=== PATIENT | male | born 1960 | race Caucasian/White ===

== ENCOUNTER → 2023-12-26 15:43 | Outpatient (REF) | payer OTHER, SELFPAY | LOC: HWRAD 15:43 | PROVIDERS: ATTENDING PHYSICIAN Family Medicine | DX: J18.0 Bronchopneumonia, unspecified organism (principal); J44.9 Chronic obstructive pulmonary disease, unspecified | CPT/HCPCS: 71046 ==

== ENCOUNTER → 2024-01-04 13:29 | Outpatient (REF) | payer OTHER, SELFPAY | LOC: HWRAD 13:29 | PROVIDERS: ATTENDING PHYSICIAN Family Medicine | DX: R59.0 Localized enlarged lymph nodes (principal); R93.89 Abnormal findings on diagnostic imaging of other specified body structures; F17.200 Nicotine dependence, unspecified, uncomplicated | CPT/HCPCS: 71260; Q9967 ==

== ENCOUNTER 2024-04-08 19:55 | Inpatient (IN) | payer MEDICARE, OTHER, SELFPAY ==
[2024-04-08] VITALS (48 sets, daily range): BP systolic 75–143; BP diastolic 40–89; BMI 18.2
--- NOTE | 2024-04-08 13:35 | ED.GENMED ---
History of Present Illness
General
Chief Complaint: Breathing Problem
Source: patient and spouse
Time Seen by Provider: 04/08/24 13:07
History of Present Illness
History of Present Illness:
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
shortness of breath, cough and had faint hemoptysis earlier in the day. Patient is currently undergoing immunotherapy and chemotherapy with last treatment of immunotherapy being on April 04 and chemotherapy sometime in January. Patient had his
care trance from [facility] to the [facility] due to the type of cancer as well as potential treatment options. Spouse reports that they are currently in the process of a workup for another potential treatment with proton
therapy but have yet to have the testing done for this. Patient denies any fevers or current infectious symptoms. Denies any chest pain, palpitations, diaphoresis, lower extremity edema or any other concerns. Denies use of anticoagulants or
diuretics. No known cardiac history.
Past History
Past History
ED Past Medical History: Cancer and HTN
ED Past Surgical History: Other
Social History
Tobacco: Former smoker (Quit 4 months ago)
Alcohol: None
Drug: None
Personal:
Living: with family
Review of Systems
Review of Systems
All Other Systems: ROS reviewed and negative except as documented in HPI and ROS
Phy Exam
Physical Exam
Physical Exam:
GENERAL: Alert , in no apparent distress
HEAD: NCAT
EYE: clear conjunctiva
NECK: Supple
ENT: o/p clr, mmm.
CARDIAC: Irregularly irregular, tachycardic
LUNGS: Somewhat diminished throughout, no acute respiratory distress
ABDOMEN: Soft, without focal tenderness, no r/g, no cvat
NEUROLOGICAL: Alert and oriented
SKIN: Warm and dry, skin intact.
MUSCULOSKELETAL: No edema, well perfused.
PSYCH: Normal and appropriate interaction.
Scores
[id number] Score for Afib Stroke Risk
Age in Years (65=0, 65-74=1, >/=75=2): 65-74
Sex (Female=+1): Male
Congestive Heart Failure History (Yes=+1): No
Hypertension History (Yes=+1): Yes
Stroke/TIA/Thromboembolism History (Yes=+2): No
Vascular Disease History (Yes=+1): No
Diabetes Mellitus (Yes=+1): No
Score: 2
Anticoagulation Recommendations: Recommend anticoagulation (as validated in nonvalvular fib)
Heart Failure Risk
Heart Failure Risk Score: Not Applicable
Heart Score for Chest Pain Patients
STEMI patient?: Not applicable
Withdrawal Assessment of Alcohol
Withdrawal Assessment Completed?: Not applicable
Course
Orders/Labs/Results
Orders:
Orders
04/08/24 13:15
Electrocardiogram (*1) Urgent
Reason for Study: Chest Pain
EKG- Treatment ONCE
04/08/24 13:29
0.9% Sodium Chloride 1000 ml [Nss] 1,000 ml IV BOLUS
Diltiazem HCl [Cardizem] 10 mg IV NOW STA
04/08/24 13:30
CT Chest Pe Study Urgent
Comment:
Reason For Exam: known lung CA. worsening SOB, cough, hemoptysis
04/08/24 13:33
Complete Blood Count/With Diff Urgent
Comprehensive Metabolic Panel Urgent
Magnesium Urgent
NT-proBNP Urgent
PTT Urgent
Prothrombin Time Urgent
Troponin I Urgent
04/08/24 13:45
Diltiazem 125 mg/125 ml Nss [Cardizem] 125 mg in 125 ml IV PER PROTOCOL
Initial dose in mg/hr, then titrate:: 5
Titrate to keep:: Heart rate 80-100 bpm
Titrate by mg/hr:: 5 mg/hr
Frequency of titrations (minutes):: 15
Maximum dose in mg/hr:: 15
Abnormal Lab Results
04/08/24
13:33
RBC 4.04 L 10^6/uL
(4.70-6.10)
Hgb 11.9 L g/dL
(13.0-18.0)
Hct 36.0 L %
(39.0-52.0)
RDW 15.9 H %
(11.5-14.5)
Plt Count 669 H 10^3/uL
(130-400)
Abs Immat Gran (auto) 0.1 H 10^3/uL
(0-0.05)
Absolute Neuts (auto) 7.1 H 10^3/uL
(1.4-6.5)
Absolute Monos (auto) 0.9 H 10^3/uL
(0.1-0.6)
Lymphocytes % 14.3 L %
(20.5-51.1)
Monocytes % 9.9 H %
(1.7-9.3)
APTT 38.9 H Sec
(23.4-35.0)
Glucose 134 H mg/dl
(70-99)
04/08/24 13:33
04/08/24 13:33
Vital Signs
Initial and Last Documented VS:
Initial Vital Signs
Pulse Resp BP Pulse Ox
58 22 79/40 96
04/08/24 12:37 04/08/24 12:37 04/08/24 12:37 04/08/24 12:37
Last Documented Vital Signs
Pulse Resp BP Pulse Ox
114 20 107/57 92
04/08/24 16:30 04/08/24 16:30 04/08/24 16:30 04/08/24 16:30
MDM/Problems Addressed
Differential Diagnosis Includes:
Progression of patient's cancer, pulmonary embolism, pleural effusion, pneumonia, new onset atrial fibrillation
MDM/Problems Addressed:
63-year-old male presenting the emergency department for evaluation of shortness of breath, cough and hemoptysis. Currently undergoing treatment for adenocarcinoma with last immunotherapy treatment 4 days ago. Patient arrives to the ER in atrial
fibrillation with rapid ventricular rate between 148 and up to 165 bpm. There is also mild hypotension. Treating the hypotension with IV fluids and rate control with Cardizem 10 mg IV and a 5 mg drip. Stat CTA of the chest ordered. Anticipate
admission or need for transfer given his history.
Chronic conditions affecting care: Cancer
Acute Exacerbation and/or Progression of Chronic Illness: Cancer
*Radiology
Radiology exam reviewed: radiology read reviewed
*Pulse Oximetry
Patient hypoxic: no
*EKG
Interpreted by ED Provider?: Yes
Heart Rate: 149
Rate: tachycardiac
Rhythm: a-fib
Modale: normal axis
Ischemia: non-specific ST changes
*Drivers' Cash Clerk Interpretation
Rate: tachycardiac
Heart Rate: 155
Rhythm: a-fib
*Critical Care Note
Total Time (30-74mins, 75-104mins- exclusive of procedures): 65
comment:
Critical care statement: A total of 65 minutes of critical care time was provided for this patient. This includes management of unstable vital signs, evaluation of the patient at bedside, reviewing the patient's pertinent medical records, discussion
with consultants, review of old EKGs and review of pertinent medical records. This time with separate from time utilized to perform the aforementioned documented procedures
Patient Management
Discussion with other providers: Hospitalist and Nuclear Station Operator
Escalation/DeEscalation of care consider admission/obs:
Patient's CT scan of the chest shows no evidence for pulmonary embolism however there is significant progression of patient's metastatic disease including the distal trachea, right and left mainstem bronchus, bronchus intermedius and right middle
lobe bronchus. There is secondary mild luminal narrowing. Patient also has increased lymphadenopathy throughout the hilum and mediastinum. I reviewed our imaging with pulmonology here, Dr. Carty, who states that we should discuss the case with
[facility] as if patient would need a stent placed due to the locations of the tumors we would be unable to accommodate this procedure here and would recommend transfer. I spoke to multiple providers at the [facility] and oncology, pulmonary and internal medicine and they agree that patient should be transferred to their facility for further evaluation and treatment. They are also aware of patient's current diagnosis of new onset atrial fibrillation
with rapid ventricular rate. At this time they do not have a bed available and are recommending admission here to our facility until a bed is available. Accepting physician is Dr. Brown as part of the oncology team. Patient's CTA of the
chest was transferred via data source for the pulmonary team to further evaluate. Hospitalist team accepts for continued evaluation and treatment here.
Patient noted to still be slightly hypotensive so is currently only receiving Cardizem infusion at 2-1/2 mg. Deferring further rate control to hospitalist and cardiology as well as potential initiation of heparin.
ED Attending Note
-
Portions of this chart may have been created with voice recognition software.� Occasional wrong word or��sound alike� substitutions may have occurred due to the inherent limitations of voice recognition software.
Discharge Plan
Departure
Patient Disposition: Admit
Date of Disposition: 04/08/24
Time of Disposition: 16:36
Presentation/result/management discussed w/ accepting MD/DO: Hospitalist
Discharge Problem:
Adenocarcinoma of lung, Atrial fibrillation, new onset
Referrals:
Michelet Nguyen MD [Family Provider] -
Interventions
Interventions:
*Risk Screen - Suicide Last Done: 04/08/24 12:37
*General Assessment Last Done: 04/08/24 12:37
*Neglect/Abuse Screening Last Done: 04/08/24 12:37
*ED COVID-19 Vaccine History Last Done: 04/08/24 15:03
ED- Cardiac Assessment Last Done: 04/08/24 14:25
ED- Pulmonary Assessment Last Done: 04/08/24 14:25
Discharge Date and Time
Print Language: SWAZI
[2024-04-08 13:42] LABS: % Basophils 0.4 % (0-2); % Eosinophils 0.2 % (0-6); % Immature Granulocytes 0.5 % (0-0.5); % Lymphocytes 14.3 % (20.5-51.1); % Monocytes 9.9 % (1.7-9.3); % Neutrophils 74.7 % (42.2-75.2); Absolute Immature Granulocytes 0.1 10^3/uL (0-0.05); Absolute Lymphocytes 1.4 10^3/uL (1.2-3.4); Absolute Monocytes 0.9 10^3/uL (0.1-0.6); Absolute Neutrophils 7.1 10^3/uL (1.4-6.5); Hemoglobin 11.9 g/dL (13.0-18.0); Mean Corp Hgb Conc. 33.1 g/dL (33.0-37.0); Mean Corpuscular Hgb 29.5 pg (27.0-31.0); Mean Corpuscular Volume 89.1 fL (80.0-94.0); Mean Platelet Volume 8.9 fL (7.4-10.4); Nucleated Red Blood Cells % 0 % (-); Platelet Count 669 10^3/uL (130-400); Red Blood Cell Count 4.04 10^6/uL (4.70-6.10); Red Cell Dist. Width 15.9 % (11.5-14.5); White Blood Cell Count 9.5 10^3/uL (4.8-10.8)
[2024-04-08] MEDS: NSS 1000 IV ×2 (13:44→19:35)
[2024-04-08 13:48] LABS: INR 1.04; PT 13.9 Sec (11.4-14.6)
[2024-04-08 13:49] LABS: APTT 38.9 Sec (23.4-35.0)
[2024-04-08] MEDS: CARDIZEM 10 MG IV (13:54)
[2024-04-08 13:55] LABS: ALT (SGPT) 17 U/L (0-50); AST (SGOT) 21 U/L (17-59); Albumin 3.5 g/dl (3.5-5.0); Alkaline Phosphatase 100 U/L (38-126); Blood Urea Nitrogen 13 mg/dl (9-20); Calcium 9.9 mg/dl (8.4-10.2); Carbon Dioxide 27 mmol/L (22-30); Chloride 99 mmol/L (98-107); Glucose 134 mg/dl (70-99); Magnesium 2.1 mg/dl (1.6-2.3); Sodium 135 mmol/L (135-145); Total Bilirubin 0.4 mg/dl (0.2-1.3); Total Protein 6.7 g/dl (6.3-8.2); eGFR > 60.00
[2024-04-08 14:07] LABS: NT-proBNP 1920 pg/ml; Troponin I 0.012 ng/ml
[2024-04-08] MEDS: CARDIZEM 125 IV (14:38)
--- NOTE | 2024-04-08 15:35 | EDRN ---
Pt had his BP alarm off for SBP 74. Pt is on cardizem for A Fib w/ RVR at 5mg at that time. BP retaken and SBP 89. Micah SIMMONS in another room so this RN spoke to Dr. Cole who said to reduce cardizem to 2.5 mg which was done at 15:33.
--- NOTE | 2024-04-08 17:34 | HPS.HSE ---
Family Physician
-
Family Physician: Michelet Nguyen
Chief Complaint
-
Shortness of breath and weakness
History of Present Illness
Patient is a 63-year-old male with past medical history significant for stage IV adenocarcinoma of lung with metastases to chest, abdomen and pelvis and hypertension who presented to [facility] ED for evaluation of increased lethargy, shortness of
breath and weakness. Patient reports that over the past several days he has felt increasingly weak with some dizziness associated with increased shortness of breath and increased cough. This morning he felt like he ma pass out so patient came for
evaluation. Upon arrival in ED he was found to be in a-fib RVR and now on cardizem gtt. Patient denies any recent fevers, chills, chest pain, nausea, vomiting, contisipation, diarrhea or urinary symptoms. Patient is followed by [facility], is
accepted at [facility] and awaiting a bed.
Medical History
Past Medical History
Past Medical History: Reports Other
Additional Past Medical History:
stage IV adenocarcinoma of lung with metastases to chest, abdomen and pelvis
hypertension
Past Surgical History: Reports None
Social History
Tobacco: Former Smoker (quit 01/22/2024, 50 pack year history )
Alcohol: Former (last drink 07/20/2016)
Drug: None
Personal:
Living: With Family
Employment: Disabled
Family History
Family History: Not pertinent
Allergies / Home Medications
Allergies reflects when Allergies were last updated in [facility].
Home Medications with original date entered in [facility]
Allergy/Medication List:
Allergies
Allergy/AdvReac Type Severity Reaction Status Date / Time
No Known Allergies Allergy Verified 04/08/24 12:37
Home Medications
acetaminophen 500 mg tablet (Tylenol Extra Strength) 500 mg PO Q6HPRN PRN mild pain 04/08/24
baclofen 10 mg tablet 10 mg PO TIDPRN PRN hiccups 04/08/24
budesonide 0.25 mg/2 mL suspension for nebulization 0.25 mg inhalation R TIDPRN PRN sob 04/08/24
codeine 10 mg-guaifenesin 100 mg/5 mL oral liquid 5 ml PO Q4HPRN PRN cough 04/08/24
diphenhydramine 25 mg-acetaminophen 500 mg tablet (Acetaminophen PM) 1 tab PO HSPRN PRN sleep 04/08/24
docusate sodium 100 mg capsule (Colace) 100 mg PO BIDPRN PRN sob 04/08/24
famotidine 20 mg tablet (Pepcid) 20 mg PO DAILY 04/08/24
levalbuterol HCl 1.25 mg/3 mL solution for nebulization 1.25 mg inhalation R Q6HPRN PRN sob 04/08/24
prednisone 5 mg tablet 5 mg PO DAILY 04/08/24
prochlorperazine maleate 10 mg tablet (Compazine) 10 mg PO BIDPRN PRN nausea 04/08/24
Review of Systems
-
History Source: Patient
Constitutional: Reports Fatigue
EENT: Reports No Symptoms
Respiratory: Reports Cough and Other (shortness of breath)
Cardiac: Reports Other (near syncope)
Abdomen/GI: Reports No Symptoms
: Reports No Symptoms
Musculoskeletal: Reports No Symptoms
Skin: Reports No Symptoms
Neurological: Reports Dizzy and Weakness
Endocrine: Reports No Symptoms
Hematologic/Lymphatic: Reports No Symptoms
Psych: Reports No Symptoms
Physical Exam
Vital Signs
Vital Signs
Pulse Resp BP Pulse Ox
114 20 107/57 92
04/08/24 16:30 04/08/24 16:30 04/08/24 16:30 04/08/24 16:30
Physical Exam
General: Well Developed, Well Nourished, No Apparent Distress, Comfortable and Conversant
HEENT: NormoCephalic, Moist mucous membranes, Atraumatic, PERRLA, [place] Conjunctivae, Nose Appears Normal and Ears Appear Normal
Respiratory: Clear and Decreased Breath Sounds
Cardiac: S1/S2 and Irregular Rhythm; No Murmur, Rub or Gallop
GI: Soft, Non Tender, Non Distended and Normal Bowel Sounds; No Organomegaly
Rectal: Deferred by Provider
Genito-urinary: Deferred by me
Musculoskeletal: No Clubbing, No Cyanosis and No Edema
Skin: Warm and IV/Catheter Site; No Rash
Neuro: Awake, Alert, AO x 3, Nonfocal/grossly intact and Cranial Nerves Intact
Hematologic/Lymphatic: No Lymphadenopathy
Psych: Calm and Intact Judgment/Insight
Laboratory Results
-
04/08/24 13:33
04/08/24 13:33
Laboratory Results
PT 13.9 Sec (11.4-14.6) 04/08/24 13:33
INR 1.04 04/08/24 13:33
APTT 38.9 Sec (23.4-35.0) H 04/08/24 13:33
Total Bilirubin 0.4 mg/dl (0.2-1.3) 04/08/24 13:33
AST 21 U/L (17-59) 04/08/24 13:33
ALT 17 U/L (0-50) 04/08/24 13:33
Alkaline Phosphatase 100 U/L (38-126) 04/08/24 13:33
Troponin I 0.012 ng/ml 04/08/24 13:33
Data Reviewed
-
CT Scan: Report Reviewed by me (Chest: No evidence of pulmonary embolism. Progressive disease, as described.)
Medical Tests (Nuc Med, Echo, EKG etc): Report Reviewed by me (EKG: ATRIAL FIBRILLATION WITH RAPID VENTRICULAR RESPONSE)
Lab Data: Labs Reviewed by me
Impression/Plan
-
IMPRESSION/PLAN:
#A-fib RVR
EKG: ATRIAL FIBRILLATION WITH RAPID VENTRICULAR RESPONSE
NONSPECIFIC ST ABNORMALITY
- Admit to telemetry
- stop Cardizem gtt
- start Cardizem PO 30mg q6
- consult Cardiology
- Echo
#stage IV adenocarcinoma of lung with metastases to chest, abdomen and pelvis
Currently undergoing immunotherapy and chemotherapy with last treatment of immunotherapy being on April 04 and chemotherapy sometime in January. Patient had his care transferred from [facility] to the [facility] due to the
type of cancer as well as potential treatment options. Spouse reports that they are currently in the process of a workup for another potential treatment with proton therapy but have yet to have the testing done for this.
Chest CT: No evidence of pulmonary embolism.
Progressive disease, as described. (see report)
- continue budesonide, codeine-guaifenesin, Xopenex, prednisone and PRN Compazine
- accepted at [facility], awaiting transfer
#hypertension
controlled
#GERD
- continue famotidine
Code Status: DNR
DVT Prophylaxis: Lovenox Sq
--- NOTE | 2024-04-08 18:58 | W.PN.UPDATE ---
Update Note
Progress Note Update
Assessment and Plan -
63-year-old male with past medical history of metastatic lung cancer who presents to the emergency department with lightheadedness, blurry vision, palpitations and shortness of breath found to be in rapid atrial fibrillation diagnosed with new onset
atrial fibrillation. No prior history of CHF, CAD, hypertension or diabetes. Patient on Cardizem drip in the emergency department at 2.5 and currently normal sinus rhythm. Oxygen saturation is 94% on room air. Initially soft BPs but now
hemodynamically more stable with a blood pressure of around 110 systolic.
AFIB RVR - now rate controlled
- admit to telemetry
- start oral diltiazem 30mg q 6 hours with hold parametes
- [id number] = 1, hold of AC, obtain echo, if depressed EF can start AC. For now aspirin 325
- cardiology consult
Metastatic Lung Ca -
- transfer to [facility] and awaiting bed
- continue respiratory treatments and cough suppression
-
DVT PPX - Lovenox Sq
Code Status - DNR
[2024-04-08] MEDS: CARDIZEM 30 MG PO (19:36)
[2024-04-09] VITALS (19 sets, daily range): BP systolic 96–130; BP diastolic 45–85; BMI 17.2
[2024-04-09] MEDS: TYLENOL 650 MG PO ×4 (00:09→22:06)
[2024-04-09] MEDS: ROBITUSSIN AC 5 ML PO ×3 (00:09→22:08)
[2024-04-09] MEDS: CARDIZEM 30 MG PO ×2 (03:38→10:40)
[2024-04-09] MEDS: CARDIZEM PO (03:38)
--- NOTE | 2024-04-09 04:14 | PTCARENOTE ---
Pt rec'd from ED at approx 0300 awake,alert in sinus rhythm. Dyspnea with minimal exertion and harsh mostly non productive cough. Afib education pamphlet given. adm hx taken and recorded. call [facility] within reach.
--- NOTE | 2024-04-09 04:43 | PTCARENOTE ---
Rec'd call from [place] transfer [facility]. medical Update given. transfer stated that pt's insurance would have to be cleared before scheduling ambulance.
[2024-04-09 06:03] LABS: Hematocrit 33.1 % (39.0-52.0); Hemoglobin 10.6 g/dL (13.0-18.0); Mean Corpuscular Hgb 29.9 pg (27.0-31.0); Mean Corpuscular Volume 93.5 fL (80.0-94.0); Mean Platelet Volume 9.3 fL (7.4-10.4); Platelet Count 581 10^3/uL (130-400); Red Blood Cell Count 3.54 10^6/uL (4.70-6.10); Red Cell Dist. Width 16.1 % (11.5-14.5); White Blood Cell Count 8.4 10^3/uL (4.8-10.8)
[2024-04-09 06:05] LABS: Blood Urea Nitrogen 12 mg/dl (9-20); Calcium 9.6 mg/dl (8.4-10.2); Carbon Dioxide 25 mmol/L (22-30); Chloride 102 mmol/L (98-107); Estimated Creatinine Clearance 100 ml/min; Glucose 110 mg/dl (70-99); Potassium 5.1 mmol/L (3.5-5.1); Sodium 135 mmol/L (135-145); eGFR > 60.00
[2024-04-09 06:32] LABS: TSH 1.54 uIU/ml (0.47-4.68)
--- NOTE | 2024-04-09 08:00 | PTCARENOTE ---
Assumed care of pt from prev nsg shift; Pt AAOx3 w/flat affect. Pt w/no c/o CP or SOB. Pt does c/o 6/10 upper back & upper abd from coughing. PRN PO Tylenol administered as ordered. Pt's VS stable w/HR in the 70's & BP 114/74 this AM. Pt remains SR
on telemetry monitoring this AM. Pt w/call [facility] within reach & no addtl needs at this time. Plan of care ongoing.
[2024-04-09] MEDS: PEPCID 20 MG PO (08:41)
[2024-04-09] MEDS: DELTASONE 5 MG PO (08:41)
--- NOTE | 2024-04-09 08:56 | CM ---
Addendum entered by Reina Isaac 04/09/24 10:22:
Telephone call to [facility] transfer center to check on status. His insurance has been cleared and just awaiting an available bed.
Original Note:
Reviewed chart. Met with Mr. Peck to review discharge plans. He states prior to admission he resides with his significant other in a second floor condo. He spouse and son reside in a house down the street. He states prior to admission he was
independent with ambulation and adls. He states he does not have any DME in the home. He states he has a prescription plan ans uses [facility] pharmacy. He states he maybe going to [facility] for further care. Medical work-up in progress. The discharge plan
is to return home with his significant other when medically stable.
--- NOTE | 2024-04-09 14:25 | CON.CAR ---
Addendum entered and electronically signed by Gray Tamayo MD 04/09/24 17:11:
I saw and examined the patient.
The BROOM BUILDER's note was reviewed and I agree with the note.
Comment:
63-year-old man with stage IV adenocarcinoma of the lung who presents with shortness of breath found to be in atrial fibrillation with RVR. He is now in sinus rhythm after being given IV diltiazem which was then converted to p.o. He is currently
getting diltiazem 30 mg every 6 hours. We will convert this to 120 mg long-acting diltiazem. In terms of anticoagulation, his [id number] score is 1 for age however this does not take into account the hypercoagulable state associated with
malignancy. I will get in touch with his oncologist at [facility] (Bryon Bojorquez MD) to discuss the risk/benefit of anticoagulation. Discussed this plan with patient and his and they are agreeable.
Original Note:
Consultation
Consultation Request
Date/Time Consultation Requested: 04/09/2024 14:20
Date/Time Consultation Performed: 04/09/2024 14:25
Requesting Provider: Dr. García
Performing Provider: ALBERTINA Guzman for Dr. Tamayo
Reason for Consultation: Atrial fibrillation with RVR
Medical History
-
Chief Complaint: Shortness of breath
History of Present Illness:
Erick Peck is a 63-year-old male with stage IV adenocarcinoma of the lung, COPD, and former smoker (quit less than 6 months ago), who presented to the emergency room with a chief complaint of shortness of breath. He also had worsening
hemoptysis. He has completed immunotherapy and chemotherapy. Initially he was treated at [facility] but has transferred his care to the emergency [place]. He was found to be in atrial fibrillation with rapid ventricular response in the
emergency department. Cardiology has been consulted for atrial fibrillation management.
His , Leila, was present for this consultation.
Past Medical History
Past Medical History: Cancer (Stage IV adenocarcinoma of the lung [with metastasis]) and COPD
Past Surgical History: Other (Splenectomy)
Social History
Tobacco: Former Smoker (Quit 4 months ago)
Alcohol: None
Personal:
Living: With Family
Employment: Retired
Family History
Family History: Reviewed & Not Pertinent
Allergies / Home Medications
Allergy/AdvReac Type Severity Reaction Status Date / Time
No Known Allergies Allergy Verified 04/08/24 12:37
�Medication �Instructions �Recorded �Confirmed �Type
acetaminophen 500 mg tablet 500 mg PO Q6HPRN PRN mild pain 04/08/24 04/08/24 History
(Tylenol Extra Strength)
baclofen 10 mg tablet 10 mg PO TIDPRN PRN hiccups 04/08/24 04/08/24 History
budesonide 0.25 mg/2 mL suspension 0.25 mg inhalation R TIDPRN PRN sob 04/08/24 04/08/24 History
for nebulization
codeine 10 mg-guaifenesin 100 mg/5 5 ml PO Q4HPRN PRN cough 04/08/24 04/08/24 History
mL oral liquid
diphenhydramine 25 1 tab PO HSPRN PRN sleep 04/08/24 04/08/24 History
mg-acetaminophen 500 mg tablet
(Acetaminophen PM)
docusate sodium 100 mg capsule 100 mg PO BIDPRN PRN sob 04/08/24 04/08/24 History
(Colace)
famotidine 20 mg tablet (Pepcid) 20 mg PO DAILY Gastrointestinal 04/08/24 04/08/24 History
Issue
levalbuterol HCl 1.25 mg/3 mL 1.25 mg inhalation R Q6HPRN PRN sob 04/08/24 04/08/24 History
solution for nebulization
prednisone 5 mg tablet 5 mg PO DAILY Anti-Inflammatory 04/08/24 04/08/24 History
prochlorperazine maleate 10 mg 10 mg PO BIDPRN PRN nausea 04/08/24 04/08/24 History
tablet (Compazine)
Review of Systems
-
History Source: Patient
All other systems: Negative unless noted
Constitutional: Weight Loss and Fatigue
EENT: Sore Throat
Respiratory: Cough and Trouble Breathing
Cardiac: No Symptoms
Abdomen/GI: No Symptoms
: No Symptoms
Musculoskeletal: No Symptoms
Skin: No Symptoms
Neurological: No Symptoms
Endocrine: No Symptoms
Hematologic/Lymphatic: No Symptoms
Physical Exam
Vital Signs
Temp Pulse Resp BP Pulse Ox
97.7 F 71 16 105/48 94
04/09/24 11:25 04/09/24 10:40 04/09/24 11:25 04/09/24 10:40 04/09/24 11:25
Lab Results
04/09/24 05:25
04/09/24 05:25
Troponin I 0.012 ng/ml 04/08/24 13:33
[id number] Pept 1920 pg/ml 04/08/24 13:33
Physical Exam
General: Well Developed and No Apparent Distress
HEENT: Normocephalic, Anicteric and Moist Mucous Membranes
Respiratory: Crackles and Accessory Resp Muscle Use
Cardiac: S1/S2 and Regular Rhythm
Breast: Deferred by me
GI: Soft, Non Tender, Non Distended and Normal Bowel Sounds
Rectal: Deferred by Provider
Genito-urinary: No Costovertebral Tender
Musculoskeletal: No Clubbing, No Cyanosis and No Edema
Skin: Warm and Dry
Neuro: AO x 3
Hematologic/Lymphatic: No Lymphadenopathy
Psych: Calm
Impression / Plan
-
IMPRESSION/PLAN: 63M with metastatic lung cancer managed at [facility] presented with shortness of breath. He was found to be in atrial fibrillation with RVR in the ER.
Shortness of breath
-No PE on CT
-proBNP 1919
-TTE pending
Atrial fibrillation with RVR - new
-Back in sinus, diltiazem gtt transitioned to diltiazem 30mg Q6H, move to diltiazem 120mg daily
-Oral Anticoagulation: None prior to arrival
-[id number]: score at least 1 (age 65-74), but this does not include his oncologic process
Metastatic lung cancer
-Last immunotherapy 04/04/2024 (agent unknown) & chemotherapy 01/2024
-Managed by [facility] (Dr. Bojorquez), transfer planned
Cough, pulmonary following
Volume depletion, per primary service
Coronary artery calcification, present on CT
Former smoker, quit 4 months ago, continued cessation recommended
Data Reviewed
-
EKG: Report Reviewed by me (Atrial fibrillation with RVR, non specific ST abnormality, rate 149)
Labs: Labs Reviewed by me
--- NOTE | 2024-04-09 14:38 | W.PN.HOSP.TC ---
Today's Communication/Plan
-
Oncology consult
Pulmonary consult
Await transfer
IV fluids
Assessment / Plan
Assessment / Plan
Gen-AAOx3, NAD
HEENT-NC, AT, anicteric, clear oral mm
Neck-supple
CV-reg, no M, +S1/S2
Lungs-clear B/L
Abd-soft, NT, ND
Ext-no edema
Musculoskeletal-no cyanosis, clubbing
Skin-warm and dry
Neuro-grossly non-focal
Psych-calm, cooperative
Volume depletion -continue normal saline IV. Etiology is due to malignancy induced anorexia.
Rapid atrial fibrillation -spontaneously converted to sinus rhythm last night. Rate controlled on Cardizem p.o. Consult cardiology.
Metastatic lung cancer -diagnosed in December, has plans to follow-up with oncology [facility]. Discussed with . Has yet to begin treatment. CT scan of chest unfortunately shows progression.
Normocytic anemia -unknown acuity. Likely due to malignancy.
DNR
Dispo -await transfer to [facility]. Alternatively, if he clinically improves can discharge tomorrow and he can follow-up with oncology in the office on Tuesday as he has an appointment according to family.
Updated family at the bedside.
Anticipated Discharge: Within 24 hours
Subjective/Interval History
-
Date of Service: April 09, 2024
Patient seen and examined. Complaining of weakness, dysphagia, dehydration.
Objective Data
-
Labs:
Laboratory Results
04/09/24
05:25
WBC 8.4
Hgb 10.6 L
Hct 33.1 L
Plt Count 581 H
Sodium 135
Potassium 5.1
Chloride 102
Carbon Dioxide 25
BUN 12
Creatinine 0.6 L
Glucose 110 H
Calcium 9.6
Vital Signs:
Vital Signs
Temp Pulse Resp BP Pulse Ox
97.7 F 71 16 105/48 94
04/09/24 11:25 04/09/24 10:40 04/09/24 11:25 04/09/24 10:40 04/09/24 11:25
I&O
04/08/24 04/09/24 04/10/24
06:59 06:59 06:59
Intake Total 480 / 480
Output Total 400 / 400
Balance 80 / 80
Review of Systems
-
History Source: Patient
All other systems: Reviewed and negative
--- NOTE | 2024-04-09 15:20 | CON.PUL ---
Consultation
Consultation Request
Date/Time Consultation Requested: 04/09/24
Date/Time Consultation Performed: 04/09/24
Performing Provider: Jenn
Reason for Consultation: COPD, cough
Medical History
-
History of Present Illness:
Patient is a 63-year-old male with previous history of recently diagnosed metastatic lung cancer (adenocarcinoma) at [facility], former smoker, chronic cough complaints presenting to for increased lethargy, shortness of breath and
generalized weakness. His notes that over the past several days he has had increasing weakness, dizziness with shortness of breath and coughing. He has an appointment to see radiation oncology at [facility] this week. Following his diagnosis at
[facility], he was never evaluated by pulmonary as an outpatient. He is a former smoker of 50 pack years. In the ER he was noted to have A-fib with RVR, placed on Cardizem drip.
He has complaints of cough, was tried on dry powder inhalers as an outpatient but did not tolerate.
No prior PFTs for review.
Past Medical History
Past Medical History: Other (see list below)
Social History
Tobacco: Former Smoker
Alcohol: Former
Drug: None
Family History
Family History: Reviewed & Not Pertinent
Allergies / Home Medications
Allergies
Allergy/AdvReac Type Severity Reaction Status Date / Time
No Known Allergies Allergy Verified 04/08/24 12:37
Home Medications
�Medication �Instructions �Recorded �Confirmed �Last Taken �Type
acetaminophen 500 mg tablet 500 mg PO Q6HPRN PRN mild pain 04/08/24 04/08/24 Unknown History
(Tylenol Extra Strength)
baclofen 10 mg tablet 10 mg PO TIDPRN PRN hiccups 04/08/24 04/08/24 Unknown History
budesonide 0.25 mg/2 mL suspension 0.25 mg inhalation R TIDPRN PRN sob 04/08/24 04/08/24 04/07/24 History
for nebulization
codeine 10 mg-guaifenesin 100 mg/5 5 ml PO Q4HPRN PRN cough 04/08/24 04/08/24 04/08/24 History
mL oral liquid
diphenhydramine 25 1 tab PO HSPRN PRN sleep 04/08/24 04/08/24 04/07/24 History
mg-acetaminophen 500 mg tablet
(Acetaminophen PM)
docusate sodium 100 mg capsule 100 mg PO BIDPRN PRN sob 04/08/24 04/08/24 04/04/24 History
(Colace)
famotidine 20 mg tablet (Pepcid) 20 mg PO DAILY Gastrointestinal 04/08/24 04/08/24 04/07/24 History
Issue
levalbuterol HCl 1.25 mg/3 mL 1.25 mg inhalation R Q6HPRN PRN sob 04/08/24 04/08/24 Unknown History
solution for nebulization
prednisone 5 mg tablet 5 mg PO DAILY Anti-Inflammatory 04/08/24 04/08/24 04/07/24 History
prochlorperazine maleate 10 mg 10 mg PO BIDPRN PRN nausea 04/08/24 04/08/24 Unknown History
tablet (Compazine)
Review of Systems
-
History Source: Patient
All other systems: Negative unless noted
Vitals / Labs / Diagnostic Testing
Vital Signs
Temp Pulse Resp BP Pulse Ox
97.7 F 71 16 105/48 94
04/09/24 11:25 04/09/24 10:40 04/09/24 11:25 04/09/24 10:40 04/09/24 11:25
Lab Data
04/09/24 05:25
04/09/24 05:25
Diagnostic Testing:
Physical Exam
-
HEENT: Normocephalic, Anicteric and Moist Mucous Membranes
Cardiovascular: S1/S2 and Regular Rhythm
Respiratory: Clear and Non-Labored Respirations
GI: Soft, Non Distended and Non Tender
Neurology: Awake, Alert, Oriented and No Motor Deficits
Skin: Warm, Dry and Good Color
General: Comfortable and Other (NAD, thin appearing)
Assessment
-
Patient is a 63-year-old male with previous history of recently diagnosed metastatic lung cancer (adenocarcinoma) at [facility], former smoker, chronic cough complaints presenting to for increased lethargy, shortness of breath and
generalized weakness. His notes that over the past several days he has had increasing weakness, dizziness with shortness of breath and coughing. He has an appointment to see radiation oncology at [facility] this week. Following his diagnosis at
[facility], he was never evaluated by pulmonary as an outpatient. He is a former smoker of 50 pack years. In the ER he was noted to have A-fib with RVR, placed on Cardizem drip.
Chronic cough
Suspect COPD
A-fib with RVR
Generalized weakness
Weight loss
Anemia, Hb 10- unknown if acute/chronic
Thrombocytosis
Conditions present prior to admission
Stage IV adenocarcinoma of lung with metastases to chest, abdomen and pelvis
Hypertension
Former smoker, 50 pack years, quit 01/22/2024
Former ETOH abuse (last drink 07/20/2016)
GERD
Post-splenectomy
Recurrent right inguinal hernia
Mixed hyperlipidemia
Plan
No oxygen was needed on admission, currently saturating >90% on RA
Home O2 evaluation likely pending evals
Prior history of lung disease is noted including suspected COPD but never had PFTs
Emphysema is noted on CT as well
We will obtain bedside PFT to evaluate
Will need outpatient FU --discussed with and patient
Chronic cough complaints, could be due to COPD
Did not do well with DPI, can change to HFA with spacer
Likely due to progressive endoluminal obstruction from tumor as well--this is noted throughout proximal to distal airways on the RIGHT
Advanced lung disease noted, will be seeing Rad Onc
They understand his treatment is palliative at this point
CXR/CT imaging reviewed with progression
New Afib with RVR, cards eval obtained
proBNP slightly elevated
ECHO results are reviewed indicating small effusion w/o tamponade, stable EF
Rate control
Smoking history noted, quit recently as of December
Continued smoking cessation encouraged
Weight loss noted, optimize nutrition
Will need outpatient pulmonary evaluation in our office for PFTs and 6MWT
Reviewed with patient and
We will follow
Diagnostic Data
Chest X-Ray: 12/26/23- Bilateral hilar prominence representing either engorgement of the central pulmonary vasculature or hilar adenopathy. Short-term follow-up chest radiograph could be obtained to ensure resolution in 4 weeks. Alternatively,
dedicated CT chest could be performed. Trace pleural effusions.
CT Scan: CHEST 04/08/24- Hilum and mediastinum: Progressive metastatic hilar and mediastinal adenopathy. Confluent mediastinal adenopathy has enlarged, with maximum AP dimension 6.2 cm, centered in the precarinal and subcarinal region. Previous
corresponding measurement approximately 5.2 cm. Progressive bilateral hilar adenopathy measuring up to 3.7 cm on the right and 2.8 cm on the left. Progressive superior and anterior mediastinal adenopathy. Progressive bilateral supraclavicular
adenopathy.
Progressive endobronchial soft tissue attenuation suggesting progressive endobronchial spread of tumor within the distal trachea, as well as within the right and left mainstem bronchus. Secondary mild luminal narrowing. Progressive endoluminal soft
tissue attenuation consistent with progressive endobronchial spread of tumor occludes the bronchus intermedius and right middle lobe bronchus.
There is progressive atelectasis involving the lateral segment of the right middle lobe, as well as in the posterior medial right costophrenic angle. Anterior inferior right upper lobe progressive reticular interstitial thickening. As before, there
is advanced emphysematous lung disease. There is a stable tiny nodule in the anterior medial caudal aspect of the right upper lobe (image 218 series 404) without significant change. There is also a small nodular opacity in the posterolateral right
lower lobe, without significant change (image 218 series 404).
There is a small to moderate pericardial effusion which has increased in size. There is a small right pleural effusion which has increased slightly in size. No pneumothorax.
01/04/24 CHEST -1. Diffuse pathologic lymphadenopathy, including within the mediastinum and both hilar regions, as detailed above.
2. Pathologic lymphadenopathy within the left upper quadrant.
3. Leading considerations are lymphoma or metastatic lymphadenopathy.
4. Heterogeneous right adrenal mass, measuring 2.4 cm in diameter, also likely malignant.
5. Minimal coronary arterial calcification. Please correlate with symptoms of and risk factors for coronary artery disease, with further workup as clinically appropriate.
Echo: 04/09/24- Normal biventricular size and systolic function without regional wall motion abnormality. LVEF 65%. No significant valvular disease. Small pericardial effusion without evidence of tamponade. No prior study available for comparison.
PFT's:
Reports and relevant images were personally reviewed.
Total time spent on this consultation __76__ minutes which includes review of history, physical exam, medications, laboratory data, personal review of imaging, extensive review of outpatient records, discussion with care team and respiratory therapy.
[2024-04-09] MEDS: FLUSH (NSS) 1 FLUSH IV (15:32)
[2024-04-09] MEDS: NSS 1000 IV (15:32)
--- NOTE | 2024-04-09 16:03 | PTCARENOTE ---
Update given to Tricia at [facility] [place]. Still awaiting an available bed at [facility] for pt transfer.
[2024-04-09] MEDS: XOPENEX 1.25 MG INHALANT SOLUTION INH (16:39)
[2024-04-09] MEDS: CARDIZEM CD 120 MG PO (17:35)
--- NOTE | 2024-04-09 21:55 | PTCARENOTE ---
Rec'd call; No bed available as of this time at [facility] as per transfer center.
Pt resting in bed, continues to have harsh cough,sometimes productive. Plan of care discussed with pt including medications. Pt remains sinus on telemetry. IVF continued via LAC, site patent.
[2024-04-10] VITALS (11 sets, daily range): BP systolic 82–122; BP diastolic 50–73; PULSE 78–86
--- NOTE | 2024-04-10 00:42 | PTCARENOTE ---
Pt with harsh cough occ with some blood noted on tissues. sat remains 93% or better.
[2024-04-10] MEDS: NSS 1000 IV (03:00)
[2024-04-10] MEDS: ROBITUSSIN AC 5 ML PO ×3 (05:06→16:10)
[2024-04-10] MEDS: TYLENOL 650 MG PO ×2 (05:08→16:09)
[2024-04-10 05:28] LABS: Hematocrit 33.2 % (39.0-52.0); Hemoglobin 10.8 g/dL (13.0-18.0); Mean Corp Hgb Conc. 32.5 g/dL (33.0-37.0); Mean Corpuscular Hgb 29.8 pg (27.0-31.0); Mean Corpuscular Volume 91.7 fL (80.0-94.0); Mean Platelet Volume 9.2 fL (7.4-10.4); Platelet Count 598 10^3/uL (130-400); Red Blood Cell Count 3.62 10^6/uL (4.70-6.10); Red Cell Dist. Width 15.9 % (11.5-14.5); White Blood Cell Count 10.5 10^3/uL (4.8-10.8)
[2024-04-10 05:53] LABS: Blood Urea Nitrogen 9 mg/dl (9-20); Calcium 9.7 mg/dl (8.4-10.2); Carbon Dioxide 25 mmol/L (22-30); Chloride 99 mmol/L (98-107); Estimated Creatinine Clearance 100 ml/min; Glucose 100 mg/dl (70-99); Potassium 4.9 mmol/L (3.5-5.1); Sodium 134 mmol/L (135-145); eGFR > 60.00
[2024-04-10] MEDS: CARDIZEM CD 120 MG PO (08:03)
[2024-04-10] MEDS: DELTASONE 5 MG PO (08:03)
[2024-04-10] MEDS: PEPCID 20 MG PO (08:03)
--- NOTE | 2024-04-10 08:55 | W.PN.PUL3 ---
Today's Communication / Plan
-
PFT with moderate obstruction, COPD education/start inhalers to go home on
Kathy sanchez for cough, which will also be chronic and persistent due to endoluminal tumor burden
Encouraged OOB/PT/OT
OP FU can be arranged, but he may need to see [facility] to discuss advanced lung therapies including stent
Transfer arrangements to [facility], discharge planning per team
Assessment
-
Patient is a 63-year-old male with previous history of recently diagnosed metastatic lung cancer (adenocarcinoma) at [facility], former smoker, chronic cough complaints presenting to for increased lethargy, shortness of breath and
generalized weakness. His notes that over the past several days he has had increasing weakness, dizziness with shortness of breath and coughing. He has an appointment to see radiation oncology at [facility] this week. Following his diagnosis at
[facility], he was never evaluated by pulmonary as an outpatient. He is a former smoker of 50 pack years. In the ER he was noted to have A-fib with RVR, placed on Cardizem drip.
Chronic cough
Suspect COPD
A-fib with RVR
Generalized weakness
Weight loss
Anemia, Hb 10- unknown if acute/chronic
Thrombocytosis
Conditions present prior to admission
Stage IV adenocarcinoma of lung with metastases to chest, abdomen and pelvis
Hypertension
Former smoker, 50 pack years, quit 01/22/2024
Former ETOH abuse (last drink 07/20/2016)
GERD
Post-splenectomy
Recurrent right inguinal hernia
Mixed hyperlipidemia
Plan
No oxygen was needed on admission, currently saturating >90% on RA
Home O2 evaluation likely pending evals
Prior history of lung disease is noted including suspected COPD but never had PFTs
Emphysema is noted on CT as well
We will obtain bedside PFT to evaluate--moderate COPD noted-reviewed with patient
Will need outpatient FU --discussed with and patient
Will start inhalers, COPD education
Odalysslocarolina sanchez for coughing
Chronic cough complaints, could be due to COPD
Did not do well with DPI, can change to HFA with spacer
Likely due to progressive endoluminal obstruction from tumor as well--this is noted throughout proximal to distal airways on the RIGHT
We did discuss his expectations for cough given his tumor burden
Advanced lung disease noted, will be seeing Rad Onc
They understand his treatment is palliative at this point
CXR/CT imaging reviewed with progression
New Afib with RVR, cards eval obtained
proBNP slightly elevated
ECHO results are reviewed indicating small effusion w/o tamponade, stable EF
Rate control
Smoking history noted, quit recently as of December
Continued smoking cessation encouraged
Weight loss noted, optimize nutrition
Will need outpatient pulmonary evaluation in our office for PFTs and 6MWT
Reviewed with patient and
If he decides to see [facility] that would be suggested for advanced lung therapy evaluation
Diagnostic Data
Chest X-Ray: 12/26/23- Bilateral hilar prominence representing either engorgement of the central pulmonary vasculature or hilar adenopathy. Short-term follow-up chest radiograph could be obtained to ensure resolution in 4 weeks. Alternatively,
dedicated CT chest could be performed. Trace pleural effusions.
CT Scan: CHEST 04/08/24- Hilum and mediastinum: Progressive metastatic hilar and mediastinal adenopathy. Confluent mediastinal adenopathy has enlarged, with maximum AP dimension 6.2 cm, centered in the precarinal and subcarinal region. Previous
corresponding measurement approximately 5.2 cm. Progressive bilateral hilar adenopathy measuring up to 3.7 cm on the right and 2.8 cm on the left. Progressive superior and anterior mediastinal adenopathy. Progressive bilateral supraclavicular
adenopathy.
Progressive endobronchial soft tissue attenuation suggesting progressive endobronchial spread of tumor within the distal trachea, as well as within the right and left mainstem bronchus. Secondary mild luminal narrowing. Progressive endoluminal soft
tissue attenuation consistent with progressive endobronchial spread of tumor occludes the bronchus intermedius and right middle lobe bronchus.
There is progressive atelectasis involving the lateral segment of the right middle lobe, as well as in the posterior medial right costophrenic angle. Anterior inferior right upper lobe progressive reticular interstitial thickening. As before, there
is advanced emphysematous lung disease. There is a stable tiny nodule in the anterior medial caudal aspect of the right upper lobe (image 218 series 404) without significant change. There is also a small nodular opacity in the posterolateral right
lower lobe, without significant change (image 218 series 404).
There is a small to moderate pericardial effusion which has increased in size. There is a small right pleural effusion which has increased slightly in size. No pneumothorax.
01/04/24 CHEST -1. Diffuse pathologic lymphadenopathy, including within the mediastinum and both hilar regions, as detailed above.
2. Pathologic lymphadenopathy within the left upper quadrant.
3. Leading considerations are lymphoma or metastatic lymphadenopathy.
4. Heterogeneous right adrenal mass, measuring 2.4 cm in diameter, also likely malignant.
5. Minimal coronary arterial calcification. Please correlate with symptoms of and risk factors for coronary artery disease, with further workup as clinically appropriate.
Echo: 04/09/24- Normal biventricular size and systolic function without regional wall motion abnormality. LVEF 65%. No significant valvular disease. Small pericardial effusion without evidence of tamponade. No prior study available for comparison.
PFT's:
Reports and relevant images were personally reviewed.
Total time spent on this encounter __56__ minutes which includes review of history, physical exam, medications, laboratory data, personal review of imaging, extensive review of outpatient records, discussion with care team and respiratory therapy.
Subjective Data
-
Date of Service:
Date of Service: April 10, 2024
Chief Complaint: Pulmonary Follow Up
Subjective:
No acute events ON, remains stable on RA
Cough ongoing, unchanged
Objective Data
Data Reviewed
Vital Signs / I&O / Oxygen:
Vital Signs
Temp Pulse Resp BP Pulse Ox
98.3 F 80 16 94/50 90
04/10/24 07:36 04/10/24 08:03 04/10/24 07:36 04/10/24 08:03 04/10/24 07:38
Intake and Output
04/09/24 04/10/24 04/11/24
06:59 06:59 06:59
Intake Total 1900 / 1900
Output Total 1750 / 1750
Balance 150 / 150
SaO2 90
Physical Exam
General: Comfortable and Other (NAD)
HEENT: Normocephalic, Anicteric and Moist Mucous Membranes
Cardiovascular: S1-S2 and Regular Rhythm
Respiratory: Clear and Non-Labored Respirations
GI: Soft, Non Distended and Non Tender
Neurology: Awake, Alert, Oriented and No Motor Deficits
Skin: Warm, Dry and Good Color
Labs/Micro/Reports
Lab Data
04/10/24 05:01
04/10/24 05:01
[2024-04-10] MEDS: ADVAIR HFA 230/21 MCG INHALER 2 PUFF INH (09:42)
[2024-04-10] MEDS: SPIRIVA RESPIMAT 2.5 MCG 2 PUFF INH (09:42)
--- NOTE | 2024-04-10 10:20 | W.PN.CD ---
Today's Communication / Plan
-
He is safe to discharge from a cardiovascular standpoint with rate controlled A-fib.
Continue diltiazem 120 mg daily.
Continue anticoagulation; will start apixaban 5 mg twice daily and ask case management to [facility]
We will schedule follow-up with our office
Impression / Plan
-
IMPRESSION/PLAN: 63M with metastatic lung cancer managed at [facility] presented with shortness of breath. He was found to be in atrial fibrillation with RVR in the ER.
Paroxysmal atrial fibrillation, new
-Diltiazem has worked to control his rates but he is now hypotensive with lightheadedness. I suspect this is because he got 2 doses of ER dilt 120mg in past 24h (one at 5pm yesterday and one at 8 AM today)
-Would continue diltiazem 120mg daily going forward
-[id number]: score at least 1 (age 65-74), but this does not include his oncologic process
-Oral Anticoagulation: start Apixaban 5mg BID. Discussed risk/benefit extensively with him and his and they are very worried about risk of stroke
-Will ask case management to [facility]
Metastatic lung cancer
-Last immunotherapy 04/04/2024 (agent unknown) & chemotherapy 01/2024
-Managed by [facility] (Dr. Bojorquez)
Cough, pulmonary following
Volume depletion, per primary service
Coronary artery calcification, present on CT
Former smoker, quit 4 months ago, continued cessation recommended
Subjective: Feels lightheaded this AM. Telemetry reveals intermittent atrial fibrillation with HRs up to low 100s.
Physical Exam
Vital Signs/Labs
Vital Signs
Temp Pulse Resp BP Pulse Ox
98.3 F 88 16 94/50 90
04/10/24 07:36 04/10/24 09:57 04/10/24 09:57 04/10/24 08:03 04/10/24 07:38
04/09/24 04/10/24 04/11/24
06:59 06:59 06:59
Actual Weight 57.5 kg
04/10/24 05:01
04/10/24 05:01
PT 13.9 Sec (11.4-14.6) 04/08/24 13:33
INR 1.04 04/08/24 13:33
APTT 38.9 Sec (23.4-35.0) H 04/08/24 13:33
Magnesium 2.1 mg/dl (1.6-2.3) 04/08/24 13:33
TSH 1.54 uIU/ml (0.47-4.68) 04/09/24 05:25
04/08/24
13:33
Nuq-X-Jjnpxcivgke Pept 1920
LAB Results
04/08/24
13:33
Troponin I 0.012
Physical Exam
Constitutional: No acute distress (cachectic, chronically ill appearing)
Cardiovascular: Rhythm & rate is regular, Pedal edema is absent, S1S2 is normal and Murmur/rub/gallop absent
Respiratory: Respiratory effort normal and Lungs clear to auscul.
Data Reviewed
-
Date of Service: April 10, 2024
Medical Decision Making: Reviewed Test Results, Independent Historian Assessment, Test Interpretation and Review of Case with other Provider
EKG: Tracing Personally Visualized and interpreted
Echo: Tracing Personally Visualized and interpreted
X-Ray/CT/US/MRI/NUC/PET: Report Reviewed by me, Discussed with Patient and Discussed with Family
Labs: Labs Reviewed by me
Old Records: Requested and Reviewed
Total Time Spent with Patient (in minutes): 30
--- NOTE | 2024-04-10 10:43 | W.PN.HOSP.TC ---
Addendum entered and electronically signed by Jesus Alberto Sprague DO 04/10/24 14:43:
Moderate Protein Calorie Malnutrition of chronic illness
Addendum entered and electronically signed by Jesus Alberto Sprague, 04/10/24 13:39:
Patient is mildly orthostatic but asymptomatic.
is requesting discharge. declined midodrine.
Plan to follow-up with oncology in the office tomorrow.
Will discharge today.
Original Note:
Today's Communication/Plan
-
Check orthostatics
IV fluids
Midodrine
Possible discharge later if stable
Assessment / Plan
Assessment / Plan
Gen-AAOx3, NAD
HEENT-NC, AT, anicteric, clear oral mm
Neck-supple
CV-reg, no M, +S1/S2
Lungs-clear B/L
Abd-soft, NT, ND
Ext-no edema
Musculoskeletal-no cyanosis, clubbing
Skin-warm and dry
Neuro-grossly non-focal
Psych-calm, cooperative
Volume depletion -continue normal saline IV. Etiology is due to malignancy induced anorexia. Volume status improving overall.
Relative hypotension this morning likely due to Cardizem side effect. Give midodrine and check orthostatic vitals. Discussed with and nurse. Discussed with cardiology.
Rapid atrial fibrillation -spontaneously converted to sinus rhythm. Rate controlled on Cardizem p.o. Appreciate cardiology input. Eliquis initiated by cardiology.
Metastatic lung cancer -diagnosed in December, has plans to follow-up with oncology [facility]. Discussed with . Has yet to begin treatment. CT scan of chest unfortunately shows progression.
Normocytic anemia -unknown acuity. Likely due to malignancy.
DNR
Dispo -still waiting for transfer to [facility] however still no bed available. I called the transfer center today and confirmed that indeed there is no bed for him yet. Patient and family agreeable to go home later today if blood
pressure improves. They have an appointment to see oncology at [place] tomorrow.
is requesting home palliative care and home IV fluids. Case management to arrange. Discussed with case management.
Updated family at the bedside.
Anticipated Discharge: Today
Subjective/Interval History
-
Date of Service: April 10, 2024
Patient seen and examined. Feeling better compared to yesterday. No complaints.
Objective Data
-
Labs:
Laboratory Results
04/10/24
05:01
WBC 10.5
Hgb 10.8 L
Hct 33.2 L
Plt Count 598 H
Sodium 134 L
Potassium 4.9
Chloride 99
Carbon Dioxide 25
BUN 9
Creatinine 0.6 L
Glucose 100 H
Calcium 9.7
Vital Signs:
Vital Signs
Temp Pulse Resp BP Pulse Ox
98.3 F 88 16 94/50 90
04/10/24 07:36 04/10/24 09:57 04/10/24 09:57 04/10/24 08:03 04/10/24 07:38
I&O
04/09/24 04/10/24 04/11/24
06:59 06:59 06:59
Intake Total 1900 / 1900
Output Total 1750 / 1750
Balance 150 / 150
Review of Systems
-
History Source: Patient
All other systems: Reviewed and negative
[2024-04-10] MEDS: ELIQUIS 5 MG PO (12:19)
[2024-04-10] MEDS: ProAmatine 5 MG PO (12:55)
--- NOTE | 2024-04-10 13:36 | W.DS.TRANS ---
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
-
Discharge Instructions:
Sleep Apnea Risk Intermediate
Discharge Diagnosis/Procedures Volume depletion, rapid atrial fibrillation,
metastatic lung cancer
Diet Regular
Activity As tolerated
Driving Restrictions No driving
Bathing Restrictions None
Instructions:
Stand-Alone Forms:
Changes to Home Medications: No
Discharge Medications:
DC Medications w/original date entered in [facility]
acetaminophen 500 mg tablet (Tylenol Extra Strength) 500 mg PO Q6HPRN PRN mild pain 04/08/24
baclofen 10 mg tablet 10 mg PO TIDPRN PRN hiccups 04/08/24
budesonide 0.25 mg/2 mL suspension for nebulization 0.25 mg inhalation R TIDPRN PRN sob 04/08/24
codeine 10 mg-guaifenesin 100 mg/5 mL oral liquid 5 ml PO Q4HPRN PRN cough 04/08/24
diphenhydramine 25 mg-acetaminophen 500 mg tablet (Acetaminophen PM) 1 tab PO HSPRN PRN sleep 04/08/24
docusate sodium 100 mg capsule (Colace) 100 mg PO BIDPRN PRN sob 04/08/24
famotidine 20 mg tablet (Pepcid) 20 mg PO DAILY Gastrointestinal Issue 04/08/24
levalbuterol HCl 1.25 mg/3 mL solution for nebulization 1.25 mg inhalation R Q6HPRN PRN sob 04/08/24
prednisone 5 mg tablet 5 mg PO DAILY Anti-Inflammatory 04/08/24
prochlorperazine maleate 10 mg tablet (Compazine) 10 mg PO BIDPRN PRN nausea 04/08/24
apixaban 5 mg tablet (Eliquis) 5 mg PO BID #60 tabs 04/10/24
benzonatate 100 mg capsule 200 mg (2 x 100 mg) PO TID #60 caps 04/10/24
diltiazem HCl 120 mg capsule,extended release 24 hr 120 mg PO DAILY #30 caps 04/10/24
Home Medication Changes
Pending Results: No
--- NOTE | 2024-04-10 13:46 | CM ---
Reviewed chart. Met with and Mrs. Peck to review discharge plans. We discussed Palliative Care with them. Telephone call to [facility] and they do not do IV hydration. [facility] do not do IV Hydration. Telephone call to
[facility] who states they have a Palliative Care Program and will do IV Hydration with a doctor order. Updated patient and spouse. They would like to wait until after his appointment at [facility] before making a decision about Palliative Care.
Telephone call to [facility] to check on his coverage for Eliquis. His co-pay is $462.51 a month. He can use the one month free coupon. Placed the coupon in his red discharge folder. The cost of his inhalers : Advair is $402.85 and Spiriva is
$518.33 a month. Reviewed co-pays with them. They are agreeable to the co-pays. Medical work-up in progress. The discharge plan is to return home with his spouse and follow up at [facility].
--- NOTE | 2024-04-10 13:47 | W.DS.TRANS ---
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
-
Discharge Instructions:
Sleep Apnea Risk Intermediate
Discharge Diagnosis/Procedures Volume depletion, rapid atrial fibrillation,
metastatic lung cancer
Diet Regular
Activity As tolerated
Driving Restrictions No driving
Bathing Restrictions None
Instructions:
Stand-Alone Forms:
Changes to Home Medications: No
Discharge Medications:
DC Medications w/original date entered in [employer]
acetaminophen 500 mg tablet (Tylenol Extra Strength) 500 mg PO Q6HPRN PRN mild pain 04/08/24
baclofen 10 mg tablet 10 mg PO TIDPRN PRN hiccups 04/08/24
budesonide 0.25 mg/2 mL suspension for nebulization 0.25 mg inhalation R TIDPRN PRN sob 04/08/24
codeine 10 mg-guaifenesin 100 mg/5 mL oral liquid 5 ml PO Q4HPRN PRN cough 04/08/24
diphenhydramine 25 mg-acetaminophen 500 mg tablet (Acetaminophen PM) 1 tab PO HSPRN PRN sleep 04/08/24
docusate sodium 100 mg capsule (Colace) 100 mg PO BIDPRN PRN sob 04/08/24
famotidine 20 mg tablet (Pepcid) 20 mg PO DAILY Gastrointestinal Issue 04/08/24
levalbuterol HCl 1.25 mg/3 mL solution for nebulization 1.25 mg inhalation R Q6HPRN PRN sob 04/08/24
prednisone 5 mg tablet 5 mg PO DAILY Anti-Inflammatory 04/08/24
prochlorperazine maleate 10 mg tablet (Compazine) 10 mg PO BIDPRN PRN nausea 04/08/24
albuterol sulfate 90 mcg/actuation aerosol inhaler 2 puff inhalation R Q4HPRN PRN SOB/cough #8.5 grams 04/10/24
apixaban 5 mg tablet (Eliquis) 5 mg PO BID #60 tabs 04/10/24
benzonatate 100 mg capsule 200 mg (2 x 100 mg) PO TID #60 caps 04/10/24
diltiazem HCl 120 mg capsule,extended release 24 hr 120 mg PO DAILY #30 caps 04/10/24
fluticasone propionate 230 mcg-salmeterol 21 mcg/actuation HFA inhaler 2 puff inhalation R BID #12 grams 04/10/24
tiotropium bromide 2.5 mcg/actuation mist for inhalation (Spiriva Respimat) 2 puff inhalation R DAILY #4 grams 04/10/24
Home Medication Changes
Pending Results: No
--- NOTE | 2024-04-10 14:20 | PN.CDI ---
CDI
- -
CDI:
Physician Documentation Request
Admit Date: 04/08/24 19:55
Dear Doctor Celestine,
Please review the following and provide your response in the progress notes.
Clinical Indicators:
Documentation includes the diagnosis of malnutrition.
Other clinical indicators are:
Ruby Engineer, 04/09
#...ASPEN/AND guidelines pt meets criteria for moderate protein calorie malnutrition
#...related to chronic illness with NFPE findings of mild muscle wasting at
#...temporal and buccal regions and intakes of
#...less than 50% of estimated needs for the past two months.
To ensure the quality of the medical record, based on the above information, your clinical assessment and the recognized standards for malnutrition, please verify in your progress notes which of the following responses best reflects the patient's
nutritional status:
Moderate Protein Calorie Malnutrition of chronic illness
Other (please specify)
Phenix Criteria (ACP Hospitalist 2017)
2 or more criteria must be present for either
non severe or severe malnutrition
Note that the criteria differs related to the
presence of an acute or chronic illness
Chronic Illness
Energy Intake Non Severe: <75% for >1 month
Severe: <75% for >1 month
Weight Loss Non Severe: 5% over 1 month
7.5% over 3 months
10% over 6 months
20% over 1 year
Severe: >5% over 1 month
>7.5% over 3 months
>10% over 6 months
>20% over 1 year
Body Fat Non Severe: Mild Loss
Severe: Severe Loss
Muscle Mass Non Severe: Mild Loss
Severe: Severe Loss
Use of terms such as suspected, likely, concern for, or probable (associated with a specific diagnosis that is being evaluated, monitored, or treated as if it exists) are acceptable and can be coded in the inpatient setting, when documented at the
time of discharge.
Thank you,
Tegan Castaneda RN BSN CCDS
CDI Specialist
please contact via tiger text
Please use your independent medical judgment in providing your response.
--- NOTE | 2024-04-10 15:31 | W.DS.TRANS ---
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
-
Discharge Instructions:
Sleep Apnea Risk Intermediate
Discharge Diagnosis/Procedures Volume depletion, rapid atrial fibrillation,
metastatic lung cancer
Diet Regular
Activity As tolerated
Driving Restrictions No driving
Bathing Restrictions None
Instructions:
Stand-Alone Forms:
Changes to Home Medications: No
Discharge Medications:
DC Medications w/original date entered in [facility]
acetaminophen 500 mg tablet (Tylenol Extra Strength) 500 mg PO Q6HPRN PRN mild pain 04/08/24
baclofen 10 mg tablet 10 mg PO TIDPRN PRN hiccups 04/08/24
budesonide 0.25 mg/2 mL suspension for nebulization 0.25 mg inhalation R TIDPRN PRN sob 04/08/24
codeine 10 mg-guaifenesin 100 mg/5 mL oral liquid 5 ml PO Q4HPRN PRN cough 04/08/24
diphenhydramine 25 mg-acetaminophen 500 mg tablet (Acetaminophen PM) 1 tab PO HSPRN PRN sleep 04/08/24
docusate sodium 100 mg capsule (Colace) 100 mg PO BIDPRN PRN sob 04/08/24
famotidine 20 mg tablet (Pepcid) 20 mg PO DAILY Gastrointestinal Issue 04/08/24
levalbuterol HCl 1.25 mg/3 mL solution for nebulization 1.25 mg inhalation R Q6HPRN PRN sob 04/08/24
prednisone 5 mg tablet 5 mg PO DAILY Anti-Inflammatory 04/08/24
prochlorperazine maleate 10 mg tablet (Compazine) 10 mg PO BIDPRN PRN nausea 04/08/24
albuterol sulfate 90 mcg/actuation aerosol inhaler 2 puff inhalation R Q4HPRN PRN SOB/cough #8.5 grams 04/10/24
apixaban 5 mg tablet (Eliquis) 5 mg PO BID #60 tabs 04/10/24
benzonatate 100 mg capsule 200 mg (2 x 100 mg) PO TID #60 caps 04/10/24
diltiazem HCl 120 mg capsule,extended release 24 hr 120 mg PO DAILY #30 caps 04/10/24
fluticasone propionate 230 mcg-salmeterol 21 mcg/actuation HFA inhaler 2 puff inhalation R BID #12 grams 04/10/24
midodrine 5 mg tablet 5 mg PO TID #20 tabs 04/10/24
tiotropium bromide 2.5 mcg/actuation mist for inhalation (Spiriva Respimat) 2 puff inhalation R DAILY #4 grams 04/10/24
Home Medication Changes
Pending Results: No
--- NOTE | 2024-04-10 15:37 | PTCARENOTE ---
Discussed the importance of midodrine. VSS. A Fib education given
== END 2024-04-10 16:33 | disposition home or self-care (01) | DRG 309 ==
LOC: IVU 19:55
PROVIDERS: Nurse Practitioner Family; Physician Assistant Medical; ADMITTING PHYSICIAN Internal Medicine; ATTENDING PHYSICIAN Hospitalist; CONSULT PHYSICIAN Internal Medicine; CONSULT PHYSICIAN Student in an Organized Health Care Education/Training Program; EMERGENCY PHYSICIAN Emergency Medicine; FAMILY PHYSICIAN Family Medicine
DX: I48.0 Paroxysmal atrial fibrillation (principal); C34.90 Malignant neoplasm of unspecified part of unspecified bronchus or lung; C79.89 Secondary malignant neoplasm of other specified sites; Z68.1 Body mass index [BMI] 19.9 or less, adult; E44.0 Moderate protein-calorie malnutrition; Z66 Do not resuscitate; E86.9 Volume depletion, unspecified; K21.9 Gastro-esophageal reflux disease without esophagitis; I10 Essential (primary) hypertension; D63.0 Anemia in neoplastic disease; J44.9 Chronic obstructive pulmonary disease, unspecified; R63.0 Anorexia; D75.839 Thrombocytosis, unspecified; E78.2 Mixed hyperlipidemia; I95.2 Hypotension due to drugs; T46.1X5A Adverse effect of calcium-channel blockers, initial encounter; Z90.81 Acquired absence of spleen; Z87.891 Personal history of nicotine dependence; Z79.899 Other long term (current) drug therapy; Z79.52 Long term (current) use of systemic steroids
CPT/HCPCS: 71275; 80048; 80053; 83735; 83880; 84443; 84484; 85025; 85027; 85610; 85730; 93005; 93306; 94640; 96361; 96374; 96376; 99291; 99406; Q9967

== ENCOUNTER 2024-05-16 00:16 | Inpatient (IN) | payer MEDICARE, OTHER, SELFPAY ==
[2024-05-15 21:53] VITALS: BP 119/69; BMI 15.9
[2024-05-15 21:56] VITALS: BP 119/69
[2024-05-15 22:22] LABS: % Basophils 0.4 % (0-2); % Eosinophils 0.7 % (0-6); % Immature Granulocytes 0.4 % (0-0.5); % Lymphocytes 2.6 % (20.5-51.1); % Neutrophils 88.9 % (42.2-75.2); Absolute Eosinophils 0.1 10^3/uL (0-0.7); Absolute Lymphocytes 0.2 10^3/uL (1.2-3.4); Absolute Monocytes 0.5 10^3/uL (0.1-0.6); Absolute Neutrophils 6.8 10^3/uL (1.4-6.5); Hematocrit 34.2 % (39.0-52.0); Hemoglobin 11.4 g/dL (13.0-18.0); Mean Corp Hgb Conc. 33.3 g/dL (33.0-37.0); Mean Corpuscular Hgb 29.2 pg (27.0-31.0); Mean Corpuscular Volume 87.7 fL (80.0-94.0); Nucleated Red Blood Cells % 0 % (-); Platelet Count 520 10^3/uL (130-400); White Blood Cell Count 7.6 10^3/uL (4.8-10.8)
[2024-05-15 22:34] LABS: INR 1.07; PT 14.2 Sec (11.4-14.6)
--- NOTE | 2024-05-15 22:35 | ED.GENMED ---
History of Present Illness
General
Chief Complaint: Breathing Problem
Time Seen by Provider: 05/15/24 22:04
History of Present Illness
History of Present Illness:
Patient is a 63-year-old man with history of metastatic lung cancer currently finished radiation followed by [place] [facility] not currently on Eliquis presenting to the emergency department shortness of breath. Patient states that he was
extremely short of breath today and they checked his oxygen at home and he was in the 80s. He went to an outpatient clinic where they checked blood work and obtain a CT scan. The CT scan did show bilateral PE as well as possible pneumonia. They
gave him 1 dose of cefepime and sent him to the emergency department for further evaluation and admission for heparin. Patient went to [facility] ultimately left given the long wait times. Patient states that he has been having intermittent fevers
as well as a cough. Has been having some chest pain secondary to the cough. No nausea vomiting. No diarrhea. No abdominal pain. No rash.
Past History
Past History
ED Past Medical History: Cancer and HTN
ED Past Surgical History: Other
Social History
Tobacco: Former smoker (Quit 4 months ago)
Alcohol: None
Drug: None
Personal:
Living: with family
Phy Exam
Physical Exam
Physical Exam:
GENERAL: Appears chronically unwell
HEENT: normocephalic, extraocular movements intact, moist oral mucosa
NECK: normal inspection
RESPIRATORY: no respiratory distress, clear to auscultation bilaterally
CARDIOVASCULAR: regular rate and rhythm
ABDOMEN/: soft, non-distended, non-tender to palpation, no rebound or guarding
EXTREMITIES: non-tender, no edema/swelling
NEUROLOGIC: awake and alert, moves all extremities
SKIN: warm
Scores
Heart Failure Risk
Heart Failure Risk Score: Not Applicable
Sepsis
Sepsis Screening
Sepsis Assessment: Sepsis Ruled Out
Sepsis Screen
Sepsis Screen: Sepsis Ruled Out
Date: 05/15/24
Time: 23:00
Course
Orders/Labs/Results
Orders:
Orders
05/15/24 21:49
ECG [Electrocardiogram (*1)] Urgent
Reason for Study: Shortness of Breath
EKG- Treatment ONCE
05/15/24 22:10
COVID-19 Antigen Urgent
Source: Nasal Swab
Complete Blood Count/With Diff Urgent
Comprehensive Metabolic Panel Urgent
Lactic Acid Q4H
Comment: CANCEL 2nd LACTIC ACID IF 1st LACTIC ACID IS LESS THAN 2
NT-proBNP Urgent
Troponin I Urgent
Blood Culture Q30M
MEGAN Source: Blood/Venous
Specimen Description:
Blood Culture Q30M
MEGAN Source: Blood/Venous
Specimen Description:
Influenza A+B Rapid Molecular Urgent
MEGAN Source: Nasal Swab
Specimen Description:
05/15/24 22:12
Protime/PTT Urgent
05/15/24 22:24
PTT Urgent
Comment: Obtain baseline before beginning heparin infusion if not already collected
Heparin 4,200 units IV NOW STA
Pharmacy Request to Place See Dose Instructions PO NOW STA
Discontinue all Active Warfarin orders?: Yes
Nursing to Place Non Medication Order As Directed
Physician Order: PTT 6 hours after initial start of Heparin infusion
05/15/24 22:26
Cefepime HCl [Maxipime] 2,000 mg IV NOW STA
Vancomycin [Vancocin] 1,500 mg 0.9% Sodium Chloride 500 ml [Nss] 500 ml IV NOW
05/15/24 22:30
Heparin 72629 Units/250 ml 25,000 units in 250 ml IV PER PROTOCOL
Weight to be used for heparin protocol in kilograms (kg):: 53.1
Protocol:: DVT/PE
PTT Goal Range to be used:: PTT 73 to 111 seconds
Order type:: Initial
INITIAL Infusion Dose (UNITS/KG/hr) & then follow protocol:: 18 units/kg/hr
Infusion Dose in UNITS/hr & then follow protocol (UNITS/hr):: 1,000
INFUSION RATE in mL/hr & then follow protocol (mL/hr):: 10
For DVT/PE algorithm, re-bolus for low PTT?: Yes
PTT less than or equal to 64 seconds:: Re-bolus 80 units/kg (max 10,000units). Increase by 200 units/hr
(+ 2mL/hr)
PTT 64.1 to 72.9 seconds:: Re-bolus 40 units/kg (max 5,000 units). Increase by 100 units/hr
(+ 1mL/hr)
PTT 73 to 111 seconds:: Target Range. No change in rate.
PTT 111.1 to 130.9 seconds:: Decrease rate by 100 units/hr (- 1 mL/hr)
PTT 131 to 199.9 seconds:: HOLD for 1 hr. Then decrease by 200 units/hr (- 2mL/hr)
PTT greater than or equal to 200 seconds:: HOLD for 2 hrs & Notify Provider. Then decrease by 200 units/hr
(- 2mL/hr)
Lab follow-up:: Each change, PTT q6h until 2 consecutive are therapeutic. Then
PTT daily.
05/15/24 22:58
NSS 250mL Bolus over 30 minutes 0.9% Sodium Chloride 250 ml [Nss] 250 ml IV BOLUS
05/15/24 23:[address] See Dose Instructions IV DIRECTED
05/16/24 02:15
Lactic Acid Q4H
Comment: CANCEL 2nd LACTIC ACID IF 1st LACTIC ACID IS LESS THAN 2
Abnormal Lab Results
05/15/24
22:10
RBC 3.90 L 10^6/uL
(4.70-6.10)
Hgb 11.4 L g/dL
(13.0-18.0)
Hct 34.2 L %
(39.0-52.0)
RDW 16.0 H %
(11.5-14.5)
Plt Count 520 H 10^3/uL
(130-400)
Absolute Neuts (auto) 6.8 H 10^3/uL
(1.4-6.5)
Absolute Lymphs (auto) 0.2 L 10^3/uL
(1.2-3.4)
Neutrophils % 88.9 H %
(42.2-75.2)
Lymphocytes % 2.6 L %
(20.5-51.1)
Sodium 129 L mmol/L
(135-145)
Chloride 92 L mmol/L
(98-107)
Creatinine 0.6 L mg/dL
(0.7-1.3)
Glucose 131 H mg/dl
(70-99)
05/15/24 22:10
05/15/24 22:10
Vital Signs
Initial and Last Documented VS:
Initial Vital Signs
Temp Pulse Resp BP Pulse Ox
97.9 F 113 30 119/69 80
05/15/24 21:53 05/15/24 21:53 05/15/24 21:53 05/15/24 21:53 05/15/24 21:53
Last Documented Vital Signs
Temp Pulse Resp BP Pulse Ox
97.9 F 113 30 119/69 80
05/15/24 21:53 05/15/24 21:53 05/15/24 21:53 05/15/24 21:53 05/15/24 21:53
MDM/Problems Addressed
Differential Diagnosis Includes:
Patient is a 63-year-old male with history of metastatic lung cancer, A-fib not currently anticoagulated presenting to the emergency department with shortness of breath and found to have PE as well as pneumonia on outpatient CT scan. On arrival
here patient's room air oxygen was 77%. Placed patient on nasal cannula. Exam is otherwise reassuring. I did review records that patient's shows on the patient portal. He does have bilateral PE with no right heart strain and RV to LV ratio
was less than 1. There is also concern for bilateral pulmonary opacities which could be radiation changes or superimposed pneumonia. Given the fevers will empirically treat with antibiotics. Patient and patient's are hesitant to obtain
repeat CT scan here. I did discuss with hospitalist team and will hold off on repeat CT imaging. Will initiate heparin and obtain blood work including cultures and respiratory swab. Given the pulmonary embolism will give small fluid boluses.
*Critical Care Note
Total Time (30-74mins, 75-104mins- exclusive of procedures): Not Applicable
Update Note
Update Note:
Blood work notable for hyponatremia. Troponin and BNP are normal. Discussed with hospitalist who excepted patient to their service.
ED Attending Note
-
Portions of this chart may have been created with voice recognition software.� Occasional wrong word or��sound alike� substitutions may have occurred due to the inherent limitations of voice recognition software.
Discharge Plan
Departure
Patient Disposition: Admit
Date of Disposition: 05/15/24
Time of Disposition: 23:00
Presentation/result/management discussed w/ accepting MD/DO: Hospitalist
Discharge Problem:
Pulmonary embolism, Pneumonia
Prescriptions:
No Action
prednisone 5 mg Tablet
5 mg PO DAILY
acetaminophen [Tylenol Extra Strength] 500 mg Tablet
500 mg PO Q6HPRN PRN (Reason: mild pain)
famotidine [Pepcid] 20 mg Tablet
20 mg PO DAILY
docusate sodium [Colace] 100 mg Capsule
100 mg PO DAILYPRN PRN (Reason: constipation)
codeine-guaifenesin 10-100 mg/5 mL liquid
5 ml PO Q4H
diphenhydramine-acetaminophen [Acetaminophen PM] 25-500 mg Tablet
1 tab PO HSPRN PRN (Reason: sleep)
fluticasone propion-salmeterol 230-21 mcg/actuation Hfa Aerosol Inhaler
2 puff inhalation R BID Qty: 12 0RF
albuterol sulfate 90 mcg/actuation Hfa Aerosol Inhaler
2 puff inhalation R Q4HPRN PRN (Reason: SOB/cough) Qty: 8.5 0RF
Spiriva Respimat 2.5 mcg/actuation Mist
2 puff inhalation R DAILY Qty: 4 0RF
Multaq 400 mg Tablet
400 mg PO BID
Referrals:
Michelet Nguyen MD [Family Provider] -
Interventions
Interventions:
*Risk Screen - Suicide Last Done: 05/15/24 21:53
*General Assessment Last Done: 05/15/24 21:53
*Neglect/Abuse Screening Last Done: 05/15/24 21:53
*ED COVID-19 Vaccine History Last Done: 05/15/24 21:53
Discharge Date and Time
Print Language: SYRIAC
[2024-05-15 22:36] LABS: Lactic Acid 1.8 mmol/L (0.7-2.0)
[2024-05-15] MEDS: MAXIPIME 2000 MG IV (22:40)
[2024-05-15 22:44] LABS: ALT (SGPT) 29 U/L (0-50); AST (SGOT) 29 U/L (17-59); Albumin 3.8 g/dl (3.5-5.0); Alkaline Phosphatase 94 U/L (38-126); Blood Urea Nitrogen 11 mg/dl (9-20); Calcium 9.8 mg/dl (8.4-10.2); Carbon Dioxide 26 mmol/L (22-30); Chloride 92 mmol/L (98-107); Estimated Creatinine Clearance 92 ml/min; Glucose 131 mg/dl (70-99); Potassium 4.7 mmol/L (3.5-5.1); Sodium 129 mmol/L (135-145); Total Bilirubin 0.5 mg/dl (0.2-1.3); eGFR > 60.00
[2024-05-15 22:46] LABS: COVID-19 Antigen Negative (Negative)
[2024-05-15 22:47] LABS: NT-proBNP 218 pg/ml; Troponin I < 0.012 ng/ml
[2024-05-15 23:00] VITALS: BP 117/62
[2024-05-15] MEDS: HEPARIN 25000 UNITS/250 ML IV (23:30)
[2024-05-15] MEDS: HEPARIN 4200 UNITS IV (23:30)
[2024-05-16] VITALS (17 sets, daily range): BP systolic 91–123; BP diastolic 41–84; BMI 15.9; BMI 16.5
[2024-05-16] MEDS: VANCOCIN 530 MG IV (00:01)
[2024-05-16] MEDS: NSS 250 IV (00:03)
--- NOTE | 2024-05-16 00:20 | HPS.HSE ---
Addendum entered and electronically signed by Santhosh Salmeron, DO 05/16/24 00:54:
A/P:
GERD / Esophagitis
- Radiation esophagitis due to recent treatment(s).
- Continue H2 blockade. Add PPI.
- Avoid additional meds that would aggravate GI tract if possible.
- Monitor for any evidence of worsening symptoms, bleeding, etc.
Original Note:
Family Physician
-
Family Physician: Michelet Nguyen
Chief Complaint
-
Pulmonary Embolism
History of Present Illness
Patient is a 63y M with PMH significant for Stage IV Adenocarcinoma of the lung, A-Fib and COPD who presents to ED for evaluation of abnormal imaging study. History obtained from patient and his at the bedside. Patient is currently
followed at [facility] for treatment of his lung cancer. He was last hospitalized here 04/08 - 04/10 secondary to A-fib. He was discharged at that time on Cardizem and Eliquis. He developed pema hemoptysis 2 days after discharge and the Eliquis was
discontinued. At some point, the Cardizem was changed to Multaq - reportedly for drug interaction concerns? Patient underwent 10 sessions of XRT from April to May at [facility]. He is not currently on any active chemo.
5-6 days ago, patient apparently ran a short distance to get out of the cold and became abruptly and significantly short of breath. Since that time, he has noted low SpO2 readings - especially in the AM. He is not currently on home oxygen.
He has some chest discomfort associated with coughing. But this is not changed from prior.
Patient had outpatient testing done today at [facility] including CT of the chest. This showed pulmonary emboli with moderate clot burden and no radiographic evidence of RV strain. Patient was referred to [facility] for evaluation / admission.
After some time there, he grew frustrated with the wait and left - presenting to the ED here at .
Patient is currently in mild respiratory distress. He denies any chest pain / pressure not associated with coughing.
He has reportedly had intermittent fevers at home - though he is afebrile here in the ED.
Medical History
Past Medical History
Past Medical History: Reports Other
Additional Past Medical History:
Stage IV adenocarcinoma of lung with metastases to chest, abdomen and pelvis
Hypertension
COPD
Atrial Fibrillation
Past Surgical History: Reports Other
Additional Past Surgical History:
Splenectomy
Social History
Tobacco: Former Smoker (quit 01/22/2024, 50 pack year history )
Alcohol: Former (last drink 07/20/2016)
Drug: None
Personal:
Living: With Family
Employment: Disabled
Family History
Family History: Not pertinent
Allergies / Home Medications
Allergies reflects when Allergies were last updated in [employer].
Home Medications with original date entered in [employer]
Allergy/Medication List:
Allergies
Allergy/AdvReac Type Severity Reaction Status Date / Time
No Known Allergies Allergy Verified 04/08/24 12:37
Home Medications
acetaminophen 500 mg tablet (Tylenol Extra Strength) 500 mg PO Q6HPRN PRN mild pain 04/08/24
codeine 10 mg-guaifenesin 100 mg/5 mL oral liquid 5 ml PO Q4H 04/08/24
diphenhydramine 25 mg-acetaminophen 500 mg tablet (Acetaminophen PM) 1 tab PO HSPRN PRN sleep 04/08/24
docusate sodium 100 mg capsule (Colace) 100 mg PO DAILYPRN PRN constipation 04/08/24
famotidine 20 mg tablet (Pepcid) 20 mg PO DAILY Gastrointestinal Issue 04/08/24
prednisone 5 mg tablet 5 mg PO DAILY Anti-Inflammatory 04/08/24
albuterol sulfate 90 mcg/actuation aerosol inhaler 2 puff inhalation R Q4HPRN PRN SOB/cough #8.5 grams 04/10/24
fluticasone propionate 230 mcg-salmeterol 21 mcg/actuation HFA inhaler 2 puff inhalation R BID #12 grams 04/10/24
tiotropium bromide 2.5 mcg/actuation mist for inhalation (Spiriva Respimat) 2 puff inhalation R DAILY #4 grams 04/10/24
dronedarone 400 mg tablet (Multaq) 400 mg PO BID 05/15/24
Review of Systems
-
History Source: Patient and Family
A 12 point ROS was completed and negative except as noted: Yes
Constitutional: Reports Fever and Fatigue; Denies Chills
EENT: Denies Sore Throat
Respiratory: Reports Cough and Trouble Breathing; Denies Hemoptysis
Cardiac: Reports Chest Pain; Denies Palpitations or Syncope
Abdomen/GI: Denies Abdominal Pain, Nausea, Vomiting, Diarrhea, Bloody Stools or Black Stools
: Denies Dysuria, Frequency or Bleeding
Musculoskeletal: Denies Joint Pain or Edema
Neurological: Reports Weakness; Denies Dizzy or Headache
Psych: Denies Depression or Anxiety
Physical Exam
Vital Signs
Vital Signs
Temp Pulse Resp BP Pulse Ox
97.9 F 113 30 119/69 80
05/15/24 21:53 05/15/24 21:53 05/15/24 21:53 05/15/24 21:53 05/15/24 21:53
Physical Exam
General: Other (Frail, chronically ill-appearing 63y M in mild respiratory distress.)
HEENT: Other (Dry MM. Neck supple.)
Respiratory: Other (Decreased BS at the bases - R > L. No wheezes / rhonchi.)
Cardiac: S1/S2 and Irregular Rhythm; No Murmur
GI: Soft, Non Tender, Non Distended and Normal Bowel Sounds
Musculoskeletal: No Clubbing, No Cyanosis and No Edema
Neuro: AO x 3
Laboratory Results
-
05/15/24 22:10
05/15/24 22:10
Laboratory Results
PT 14.2 Sec (11.4-14.6) 05/15/24 22:12
INR 1.07 05/15/24 22:12
APTT Cancelled 05/15/24 22:24
Lactic Acid 1.8 mmol/L (0.7-2.0) 05/15/24 22:10
Total Bilirubin 0.5 mg/dl (0.2-1.3) 05/15/24 22:10
AST 29 U/L (17-59) 05/15/24 22:10
ALT 29 U/L (0-50) 05/15/24 22:10
Alkaline Phosphatase 94 U/L (38-126) 05/15/24 22:10
Troponin I < 0.012 ng/ml 05/15/24 22:10
Impression/Plan
-
A/P: Patient is a 63y M with PMH significant for Stage IV adenocarcinoma of the lung who presents to ED with outpatient CT scan showing pulmonary emboli.
Pulmonary Embolism
Acute Hypoxemic Respiratory Insufficiency secondary to the above
- Admit for further evaluation and treatment.
- CT report and images reviewed on patient's laptop via [employer].
- CT done earlier today shows multiple, bilateral pulmonary emboli - most proximal in the HANNAH.
- Continue oxygen support.
- IV heparin started in the ED.
- Reviewed risks : benefits with patient and in detail. Monitor for development of hemoptysis or any other significant bleeding issues.
- Pulmonary evaluation.
- Follow for clinical improvement / improvement in oxygenation.
- Obtain records from [facility] including formal report / images / etc.
Pneumonia / Pneumonitis
- Scattered infiltrates on CT in the R lung and HANNAH.
- ? infectious versus XRT related changes.
- Cover with IV abx for now given reported fevers at home.
- Pulmonary evaluation as noted above.
- Continue current low-dose prednisone without changes.
- Cough suppressants / supportive care.
Stage IV Adenocarcinoma of the Lung
Bilateral Adrenal Masses / Metastases
- Significant mediastinal disease and endobronchial disease including complete occlusion of the RML bronchus and partial occlusion of the R mainstem bronchus.
- CT from today does appear to show some improvement compared to prior images here.
- Follow-up with team at [facility] after discharge.
Atrial Fibrillation - Unknown Type
- Continue current regimen of Multaq.
- Eliquis previously stopped due to hemoptysis as noted in HPI.
- Monitor on tele.
- Echo was done 05/10 which was reportedly normal.
COPD without Acute Exacerbation
- Suspected based on smoking history, imaging, etc.
- Continue current inhaler regimen.
- Albuterol nebs PRN.
DVT Prophylaxis: On IV Heparin
Code Status: DNR
--- NOTE | 2024-05-16 02:45 | PTCARENOTE ---
Rec'd pt as ED admit with at bedside. Pt on 6L MF sat 88%, this RN titrated O2 to 10L with improvement to 94%. Pt stood at bedside to void, see worklist. Heparin gtt in place at 1000 units/hr. Pt with frequent harsh productive cough, states
worse when laying down. C/o some mild pain in middle chest, which he attributes to coughing. Displays forgetfulness, which pt and state are baseline. Awaiting pharmacy verification of medication orders. Call mosley within reach.
[2024-05-16] MEDS: VIBRAMYCIN 260 MG IV ×2 (04:22→15:13)
[2024-05-16] MEDS: NSS 1000 IV ×2 (04:22→16:13)
[2024-05-16 06:03] LABS: INR 1.14; PT 14.9 Sec (11.4-14.6)
[2024-05-16 06:04] LABS: APTT 61.5 Sec (23.4-35.0)
[2024-05-16 06:15] LABS: Blood Urea Nitrogen 11 mg/dl (9-20); Calcium 9.1 mg/dl (8.4-10.2); Carbon Dioxide 26 mmol/L (22-30); Chloride 96 mmol/L (98-107); Estimated Creatinine Clearance 92 ml/min; Glucose 95 mg/dl (70-99); Sodium 128 mmol/L (135-145); eGFR > 60.00
[2024-05-16] MEDS: HEPARIN IV (06:23)
[2024-05-16] MEDS: HEPARIN 4200 UNITS IV (06:27)
[2024-05-16] MEDS: MAXIPIME 2000 MG IV ×3 (06:31→21:45)
[2024-05-16] MEDS: STERILE WATER FOR INJECTION 10 ML IV ×3 (06:31→21:45)
[2024-05-16] MEDS: ADVAIR HFA 230/21 MCG INHALER 2 PUFF INH ×2 (08:19→19:24)
[2024-05-16] MEDS: SPIRIVA RESPIMAT 2.5 MCG 2 PUFF INH (08:19)
[2024-05-16] MEDS: VENTOLIN NEBULES 2.5 MG INH (08:28)
--- NOTE | 2024-05-16 09:20 | CON.PUL ---
Consultation
Consultation Request
Date/Time Consultation Requested: 05/16/2024238
Date/Time Consultation Performed: 05/16/2024900
Requesting Provider: Dr. Salmeron
Performing Provider: Dr. Penn
Reason for Consultation: PE/Hypoxia
Medical History
-
Chief Complaint: SOB
History of Present Illness:
63-year-old male former tobacco smoker with past medical history of stage IV and a carcinoma of the lung following with [facility] for treatment s/p XRT (04/2024 until this month, underwent 10 sessions, also on immunotherapy, not on chemo - Dr. Bojorquez),
moderate COPD, A-fib on on Multaq and hypertension who p/w SOB. He has metastatic lung cancer that was recently diagnosed at [facility] and he does not follow with pulmonology. During recent hospitalization from 04/08 - 04/10/2024 he was found
to be in new onset rapid A-fib and Eliquis was initiated by cardiology. For the last 5 to 6 days he has become more short of breath which started abruptly. He checks his pulse ox at home and it has been low especially in the morning, and he is not
on home oxygen. Also has chest discomfort with coughing which is relatively unchanged. He had outpatient CT chest at [facility] showing pulmonary emboli with moderate clot burden with no RV strain and was referred to [facility] for further treatment but left
after he grew frustrated with their care. Here in the ER, he was afebrile to 97.9 �F, pulse rate 113, breathing at 30 breaths/min, BP 119/69 and saturating 80% on room air, which improved to the mid 90s on mid flow and then he eventually required
high flow nasal cannula. Initial labs showed Hb 11.4, platelet count 520, serum sodium 129, serum chloride 92, troponin negative at <0.012, proBNP low at 218 and COVID antigen negative. He reportedly had fevers at home and blood cultures were
collected in the ER. He was given cefepime/vancomycin in the ER, also a 250 cc bolus of NS 0.9% and started on heparin gtt. Given his high oxygen requirements he was admitted to the IMU and pulmonary service consulted for additional
management/recommendations.
When I saw the patient, his Ziyad, was at bedside and all questions were answered. He is currently on 10 L/min via mid flow nasal cannula. He says he feels better today than he did yesterday. Currently saturating 94%, heart rate 83. BP
106/66. He says that he has been coughing up blood ever since he was started on Eliquis last month. Still coughing up some blood-tinged phlegm but no pema blood seen. His had imaging studies from her chart at [facility] pulled up on the computer
and I did review his CTA chest done at [facility] which showed an acute bilateral PE with small�moderate clot burden most proximally involving the left upper lobe pulmonary artery. There was no signs of RV strain. Also new bilateral pulmonary opacities
which may reflect postradiation changes and/or superimposed pneumonia. He currently denies chest pain, HUTCHISON, nausea, fevers or chills.
PMHx: Tobacco use disorder, stage IV adenocarcinoma of the lung, hypertension, moderate COPD, A-fib on Multaq
PSHx: Splenectomy
Past Medical History
Past Medical History: Other (Above as per HPI)
Past Surgical History: Other (Above as per HPI)
Social History
Tobacco: Former Smoker (74-[id number]-fcuz history, quit 01/22/2024)
Alcohol: Former (Last drink 07/20/2016)
Drug: None
Personal:
Living: With Family
Employment: Disabled
Family History
Family History: Reviewed & Not Pertinent
Allergies / Home Medications
Allergies
Allergy/AdvReac Type Severity Reaction Status Date / Time
No Known Allergies Allergy Verified 04/08/24 12:37
Home Medications
�Medication �Instructions �Recorded �Confirmed �Last Taken �Type
acetaminophen 500 mg tablet 500 mg PO Q6HPRN PRN mild pain 04/08/24 05/15/24 Unknown History
(Tylenol Extra Strength)
codeine 10 mg-guaifenesin 100 mg/5 5 ml PO Q4H 04/08/24 05/15/24 04/08/24 History
mL oral liquid
diphenhydramine 25 1 tab PO HSPRN PRN sleep 04/08/24 05/15/24 04/07/24 History
mg-acetaminophen 500 mg tablet
(Acetaminophen PM)
docusate sodium 100 mg capsule 100 mg PO DAILYPRN PRN constipation 04/08/24 05/15/24 04/04/24 History
(Colace)
famotidine 20 mg tablet (Pepcid) 20 mg PO DAILY Gastrointestinal 04/08/24 05/15/24 04/07/24 History
Issue
prednisone 5 mg tablet 5 mg PO DAILY Anti-Inflammatory 04/08/24 05/15/24 04/07/24 History
albuterol sulfate 90 mcg/actuation 2 puff inhalation R Q4HPRN PRN 04/10/24 05/15/24 Unknown Rx
aerosol inhaler SOB/cough #8.5 grams
fluticasone propionate 230 2 puff inhalation R BID #12 grams 04/10/24 05/15/24 Unknown Rx
mcg-salmeterol 21 mcg/actuation
HFA inhaler
tiotropium bromide 2.5 2 puff inhalation R DAILY #4 grams 04/10/24 05/15/24 Unknown Rx
mcg/actuation mist for inhalation
(Spiriva Respimat)
dronedarone 400 mg tablet (Multaq) 400 mg PO BID 05/15/24 05/15/24 Unknown History
Review of Systems
-
History Source: Patient
All other systems: Negative unless noted
Vitals / Labs / Diagnostic Testing
Vital Signs
Temp Pulse Resp BP Pulse Ox
97.7 F 93 18 117/84 92
05/16/24 07:25 05/16/24 09:03 05/16/24 09:03 05/16/24 08:00 05/16/24 09:03
Lab Data
05/15/24 22:10
05/16/24 05:18
Laboratory Results
05/15/24 05/15/24 05/16/24
22:12 22:24 05:18
PT 14.2 14.9 H
INR 1.07 1.14
APTT 43.0 H Cancelled 61.5 H
Microbiology
05/15/24 22:10 Nasal Swab Influenza Types A & B (JOSIE) - Final
Negative for Influenza A & B, NAAT
Negative results must be combined with clinical observations
and patient history.
Nucleic Acid Amplification test (NAAT)performed on the
Powered platform.
Diagnostic Testing:
Physical Exam
-
HEENT: Normocephalic and Anicteric
Cardiovascular: S1/S2 and Peripheral Edema (negative)
Respiratory: Wheeze (negative), Rales (Left middle lung field), Rhonchi (negative), Non-Labored Respirations and Other (Diminished breath sounds in the right hemithorax)
GI: Soft, Non Distended, Non Tender and Normal Bowel Sounds
Neurology: AO x 3 and Tremors (negative)
Skin: Warm and Dry
General: Respiratory Distress (negative), Comfortable, Fever (negative) and Chills (negative)
Assessment
-
Assessment: 63-year-old male former tobacco smoker with past medical history of stage IV and a carcinoma of the lung following with [facility] for treatment s/p XRT (04/2024 until this month, underwent 10 sessions, also on immunotherapy, not on chemo -
Dr. Bojorquez), moderate COPD, A-fib on on Multaq and hypertension who p/w SOB. He has metastatic lung cancer that was recently diagnosed at [facility] and he does not follow with pulmonology. During recent hospitalization from 04/08 - 04/10/2024
he was found to be in new onset rapid A-fib and Eliquis was initiated by cardiology. For the last 5 to 6 days he has become more short of breath which started abruptly. He checks his pulse ox at home and it has been low especially in the morning,
and he is not on home oxygen. Also has chest discomfort with coughing which is relatively unchanged. He had outpatient CT chest at [facility] showing pulmonary emboli with moderate clot burden with no RV strain and was referred to [facility] for further
treatment but left after he grew frustrated with their care. Here in the ER, he was afebrile to 97.9 �F, pulse rate 113, breathing at 30 breaths/min, BP 119/69 and saturating 80% on room air, which improved to the mid 90s on mid flow and then he
eventually required high flow nasal cannula. Initial labs showed Hb 11.4, platelet count 520, serum sodium 129, serum chloride 92, troponin negative at <0.012, proBNP low at 218 and COVID antigen negative. He reportedly had fevers at home and
blood cultures were collected in the ER. He was given cefepime/vancomycin in the ER, also a 250 cc bolus of NS 0.9% and started on heparin gtt. Given his high oxygen requirements he was admitted to the IMU and pulmonary service consulted for
additional management/recommendations.
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
Impression:
#Acute bilateral submassive PE without RV strain provoked from known stage IV lung cancer
#Aiz-wwoz-clhrzwtfukl hemoptysis (started last month after starting Eliquis, which is likely related to his stage IV lung cancer)
#Chronic anemia
#Chronic thrombocytosis likely reactive due to known malignancy
#Hypochloremic, hyponatremia likely due to reduced PO intake, and may possibly be a component of paraneoplastic syndrome (SIADH)
#Moderate COPD via spirometry from 04/09/2024 showing post-bronchodilator FEV1: 1.88 L / 52% predicted on chronic prednisone 5 mg daily + Spiriva/Advair
#Bullous emphysema seen on recent CT chest from 04/08/2024 predominantly in the upper lung sánchez
#Mild restrictive lung defect from PFT as above with post-bronchodilator FVC: 3.45 L / 73% predicted
#Right perihilar mass with recently diagnosed stage IV lung adenocarcinoma with progressive endobronchial spread, small�moderate pericardial effusion and bilateral adrenal masses seen on CTA chest from 04/08/2024
#Paroxysmal A-fib on Eliquis (started last month) and also on Multaq
Plan:
- Continue with systemic anticoagulation
- Troponin was negative on admission and proBNP was relatively low at 218
- Check echo and lower extremity duplex --> of note he did have a recent echo on 05/10/2024 which did not show any evidence of RV dysfunction, however this was prior to his current hospitalization so RV function should be reassessed
- Consult hematology/oncology
- We should try to get the CTA chest imaging from [facility] onto our system so that all providers can review
- He reportedly had fevers at home but has been afebrile since admission
- Blood cultures collected in ER (on 05/15/2024) and shows NGTD
- Sputum culture also collected today and is pending
- Continue with empiric antibiotics with cefepime/doxycycline; check CXR and UA with reflex to culture
- Continue to monitor his hemoptysis and if worsens then anticoagulation will need to be stopped
-Trend H&H with serial CBC and transfuse to keep Hb >7 g/dL
- Antitussants prn
- He is on Spiriva + Advair at home � continue these while hospitalized
- Maintain SpO2 88-95% with supplemental O2 and wean down high flow FiO2 as tolerated
- Continue with home dose of prednisone
- Continue with Multaq
- Incentive spirometer q1hr while awake
- Replete electrolytes with K>4, Mg>2
- Maintain euglycemia with goal BG >100 and <180
- prn nebulized bronchodilators - not currently bronchospastic
- DVT ppx: heparin gtt
I updated his , Ziyad, at bedside and answered all of her questions.
Pulmonary service will continue to follow along.
Outside imaging:
CTA chest 05/15/2024:
1. Acute bilateral pulmonary embolism with a small to moderate clot burden most proximally involving left upper lobe pulmonary artery. No signs of RV strain. RV/LV ratio is <1, normal.
2. New bilateral pulmonary opacities may reflect postradiation changes and/or superimposed pneumonia
3. Interval decrease in size of mediastinal mass and thoracic lymph nodes
4. Stable adrenal metastasis
Total time spent today was 78 minutes for this encounter. Time includes reviewing laboratory test/imaging results, reviewing pertinent medical records, obtaining and reviewing medical history, performing an appropriate exam, ordering medications,
tests and procedures. Time also includes documentation of this encounter, coordinating patient care and communicating with other healthcare professionals. Total time does not include separately billed tests performed on this date of service.
[2024-05-16] MEDS: DELTASONE 5 MG PO (09:27)
[2024-05-16] MEDS: MULTAQ 400 MG PO ×2 (09:27→21:45)
[2024-05-16] MEDS: PEPCID 20 MG PO (09:27)
--- NOTE | 2024-05-16 12:02 | W.PN.HOSP.TC ---
Today's Communication/Plan
-
Continue antibiotics
Continue heparin
Wean oxygen as tolerated
Stop Protonix as patient/ family does not want
family to bring dietary supplements from home
Assessment / Plan
Assessment / Plan
63-year-old male with history of adenocarcinoma of the lung came to the ER for an abnormal CAT scan. He follows with [facility]. He was hospitalized here for atrial fibrillation early April 2024. He was discharged with Cardizem and Eliquis. Patient
developed hemoptysis and Eliquis was discontinued. Cardizem was also changed to Multaq. He underwent 10 sessions of radiation from April to May at [facility]. Not on any chemo at present. The few days prior to admission he
became short of breath when he ran to get out of the cold. Outpatient CT was done which showed PE with moderate clot burden. Patient went to [facility] for evaluation but did not want to wait therefore came to [facility]
Patient appears to be cachectic
Awake and alert
Cardiovascular system S1-S2 appreciated
Chest decreased breath sounds but clear
No lower extremity edema
CT PE study from [facility] reviewed by me and also report-acute bilateral pulmonary embolism with a small to moderate clot burden most approximately involving left upper lobe pulmonary artery. No signs of RV strain. RV to LV ratio less than 1. New
bilateral pulmonary opacities may reflect postradiation changes and also thrombus pneumonia. Interval decrease in size of mediastinal mass and thoracic lymph nodes. Stable adrenal metastasis.
In addition my review of images also shows COPD changes and bullae.
# Pulmonary embolism
Bilateral per outpatient report most prominent in the left upper lobe
Continue anticoagulation
Obtain records from [facility]
Oxygen supplementation as needed
Check venous Dopplers lower extremity
Pulmonary consultation
# Pneumonia/pneumonitis
Unclear could be radiation related infectious/
Fevers at home therefore continue antibiotics-cefepime and doxycycline
Patient is on prednisone as outpatient to be continued
Influenza and COVID-negative
Blood cultures pending
Check sputum cultures
# Acute respiratory failure-on high flow nasal cannula-secondary to above reasons
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
Has significant mediastinal disease and endobronchial disease including complete occlusion of the right middle lobe bronchus and partial occlusion of the right mainstem bronchus. Status post recent radiation
Follows with Dr.Roger Bojorquez [phone]
Called and left message for call back
# Atrial fibrillation-paroxysmal
Continue Multaq
Currently on anticoagulation started this admit
Echo 04/09/2024-normal biventricular size and systolic function. EF 65%. Small pericardial effusion
# Hyponatremia-check TSH, serum and urine osmolality studies urine sodium. Possible SIADH
# Thrombocytosis
# COPD-on Spiriva, fluticasone/salmeterol inhalers as outpatient-continue
Also on 5 mg of prednisone as outpatient-continue
# Protein calorie malnutrition-at least moderate. Family declining dietary consultation. They want to bring their own supplements from home. Does not want Ensure
# Ex-smoker
# GERD-Pepcid. They do not want Protonix.
# History of radiation-induced esophagitis-patient denies any symptoms at present
# History of splenectomy
# DVT prophylaxis-heparin
# DNR
at bed side . discussed at bedside. She had a lot of questions.
D/W RN
Called and left a message for [facility]
Total time spent over 55 minutes.
Anticipated Discharge: > 48 hours
Subjective/Interval History
-
Date of Service: May 16, 2024
Objective Data
-
Labs:
Laboratory Results
05/15/24 05/16/24 05/16/24
22:24 05:18 12:30
PT 14.9 H
INR 1.14
APTT Cancelled 61.5 H Pending
Sodium 128 L
Potassium 5.0
Chloride 96 L
Carbon Dioxide 26
BUN 11
Creatinine 0.6 L
Glucose 95
Calcium 9.1
Vital Signs:
Vital Signs
Temp Pulse Resp BP Pulse Ox
97.7 F 97 25 93/63 94
05/16/24 07:25 05/16/24 11:00 05/16/24 11:00 05/16/24 11:00 05/16/24 12:01
I&O
05/15/24 05/16/24 05/17/24
06:59 06:59 06:59
Intake Total 480 / 480 100 / 100
Output Total 200 / 200
Balance 280 / 280 100 / 100
[2024-05-16 12:32] LABS: Osmolality Serum 269 mOsm/kg (275-300)
[2024-05-16 13:07] LABS: Troponin I < 0.012 ng/ml
[2024-05-16] MEDS: TYLENOL 500 MG PO (13:31)
[2024-05-16 13:40] LABS: Urine Sodium 160 mmol/L (30-90)
[2024-05-16 14:06] LABS: Osmolality Urine 837 mOsm/kg (300-900)
--- NOTE | 2024-05-16 14:28 | W.PN.UPDATE ---
Update Note
Progress Note Update
Spoke to Dr Bojorquez.
Patient has primary resistant cancer. he was treated with 9LA regimen ( Nivolumab/Ipilimumab /Taxol/Carbo) and not responded. Recently received palliative radiation therapy for mediastinal disease. He is slowly recovering from Radiation induced
esophagitis . Plan is for to have goals of care discussion . Poor PS is in the way of his treatment as well now. Alimta is being considered ( In 3 weeks at least 3 weeks out from now)but not sure if he will benefit/tolerate.
recommended to keep him on Lovenox weight based bid for discharge and not NOACS 9 Lovenox can be stopped any time when there is a bleed)
[2024-05-16] MEDS: ROBITUSSIN AC 5 ML PO (15:06)
[2024-05-16] MEDS: XOPENEX 1.25 MG INHALANT SOLUTION INH ×2 (15:35→19:23)
[2024-05-16 17:09] LABS: TSH Reflex To Free T4 0.16 uIU/ml (0.47-4.68)
--- NOTE | 2024-05-16 17:17 | CM ---
Patient with Hx metastatic lung CA. O2 10 L midflow. Receiving IV Abx, Heparin gtt. PT & OT on hold today.
Attempted to meet with patient earlier today who was busy speaking with a physician.
Spoke with Ziyad, patient's who is POA;
the patient resides with a roommate Ruba in a 2 story [facility], with 2 ABBY and 2nd floor bedroom/bath.
He was independent in ADLs and ambulation without using any assistive devices.
The friend/roommate Ruba stays with him except when she is working 2p-11:30pm.
Ruba stays with patient when Ruba is at work.
The patient has no DME other than a medical alert watch.
No prior VN or SNF.
Patient has been eating and takes [employer] liquid protein drinks for more nutrition.
Ziyad says patient has Palliative Care through [facility].
If DME, VN or transport is needed at discharge CM will need to obtain patient's [facility] address [facility], which is not the address in the chart. The address in the chart is 's address where patient gets his
mail.
Plan follow O2 needs, mobility needs.
Plan follow up after seen by PT/OT.
--- NOTE | 2024-05-16 17:44 | CM ---
Patient with Hx metastatic lung CA. O2 10 L midflow. Receiving IV Abx, Heparin gtt. PT & OT on hold today.
Attempted to meet with patient earlier today who was busy speaking with a physician.
Spoke with Ziyad, patient's who is POA;
the patient resides with a roommate Ruba in a 2 story [facility], with 2 ABBY and 2nd floor bedroom/bath.
He was independent in ADLs and ambulation without using any assistive devices.
The friend/roommate Ruba stays with him except when she is working 2p-11:30pm.
Ziyad stays with patient when Ruba is at work.
The patient has no DME other than a medical alert watch.
No prior VN or SNF.
Patient has been eating and takes [employer] liquid protein drinks for more nutrition.
Ziyad says patient has Palliative Care through [facility].
If DME, VN or transport is needed at discharge CM will need to obtain patient's [facility] address of the [facility] he resides in, which is not the address in the chart. The address in the chart is 's address where patient gets his
mail.
Plan follow O2 needs, mobility needs.
Plan follow up after seen by PT/OT.
[2024-05-16 18:05] LABS: Free T4 1.53 ng/dl (0.78-2.19)
--- NOTE | 2024-05-16 18:26 | PTCARENOTE ---
Patient is on 10 liters oxygen mid flow, pulse ox 95%. Patient has productive cough that is blood tinged at times- Dr. Coronado notified. Patient sitting on side of bed. Pain treated with Tylenol and Robitussin with codeine liquid. Appetite fair. IV
Heparin infusing, PTT followed per protocol.
[2024-05-16 19:01] LABS: APTT 64.4 Sec (23.4-35.0)
[2024-05-16] MEDS: HEPARIN 2100 UNITS IV (19:14)
[2024-05-16] MEDS: HEPARIN 25000 UNITS/250 ML IV (19:14)
[2024-05-16 19:17] LABS: Troponin I < 0.012 ng/ml
--- NOTE | 2024-05-16 22:20 | PTCARENOTE ---
Patient and verbalizing frustrations on diagnosis and the multiple hospital visits within the last few months. They are tearful, emotional support provided. Patient's LAC IV site is bleeding; VAT team aware and came to redress site. After 30
minutes, IV site is still bleeding through the dressing and dripping onto the bed. Site re-dressed again. Heparin gtt switched to LFA site. VAT paged again for new site placement. Pt and thankful.
[2024-05-17 01:57] LABS: APTT 78.9 Sec (23.4-35.0)
[2024-05-17] MEDS: TYLENOL 500 MG PO ×3 (02:38→23:41)
[2024-05-17] MEDS: ROBITUSSIN AC 5 ML PO ×3 (02:38→23:41)
[2024-05-17] MEDS: VIBRAMYCIN 260 MG IV ×2 (02:41→14:49)
[2024-05-17 02:49] VITALS: BP 101/65
--- NOTE | 2024-05-17 05:00 | PTCARENOTE ---
Patient woke up having a coughing attack. PRN Robitussin/codeine provided with Tylenol for discomfort per request. stayed overnight with patient. Hacking productive cough continues. Voiding independently at edge of bed via urinal. NSR w/
PACs on tele. Tolerating Heparin gtt; titrated per protocol; refer to worklist. IV sites intact. Call mosley and tray table left within reach. and patient appreciative of care.
[2024-05-17] MEDS: NSS 1000 IV (05:47)
[2024-05-17] MEDS: STERILE WATER FOR INJECTION 10 ML IV ×3 (05:47→22:48)
[2024-05-17] MEDS: MAXIPIME 2000 MG IV ×3 (05:47→22:47)
[2024-05-17 05:49] VITALS: BMI 16.5
[2024-05-17] MEDS: XOPENEX 1.25 MG INHALANT SOLUTION INH ×3 (07:38→19:23)
[2024-05-17] MEDS: SPIRIVA RESPIMAT 2.5 MCG 2 PUFF INH (07:38)
[2024-05-17] MEDS: ADVAIR HFA 230/21 MCG INHALER 2 PUFF INH ×2 (07:38→19:23)
--- NOTE | 2024-05-17 08:52 | W.PN.PUL3 ---
Today's Communication / Plan
-
Systemic anticoagulation with eventual transition to NOAC, preferably Eliquis
Monitor his hemoptysis quantity
Broad-spectrum antibiotics to complete a 7-day course assuming he continues to improve and remains afebrile for 48 hours prior to stopping antibiotics
Check CXR as we have no chest imaging since admission
Antitussants
Advair + Spiriva with Xopenex
Pepcid
Multaq
Up OOB as tolerated
PT/OT
Poor prognosis given his stage IV adenocarcinoma now with an acute PE, hemoptysis and physical deconditioning
He is DNR/DNI
Assessment
-
Assessment: 63-year-old male former tobacco smoker with past medical history of stage IV and a carcinoma of the lung following with [facility] for treatment s/p XRT (04/2024 until this month, underwent 10 sessions, also on immunotherapy, not on chemo -
Dr. Bojorquez), moderate COPD, A-fib on on Multaq and hypertension who p/w SOB. He has metastatic lung cancer that was recently diagnosed at [facility] and he does not follow with pulmonology. During recent hospitalization from 04/08 - 04/10/2024
he was found to be in new onset rapid A-fib and Eliquis was initiated by cardiology. For the last 5 to 6 days he has become more short of breath which started abruptly. He checks his pulse ox at home and it has been low especially in the morning,
and he is not on home oxygen. Also has chest discomfort with coughing which is relatively unchanged. He had outpatient CT chest at [facility] showing pulmonary emboli with moderate clot burden with no RV strain and was referred to [facility] for further
treatment but left after he grew frustrated with their care. Here in the ER, he was afebrile to 97.9 �F, pulse rate 113, breathing at 30 breaths/min, BP 119/69 and saturating 80% on room air, which improved to the mid 90s on mid flow and then he
eventually required high flow nasal cannula. Initial labs showed Hb 11.4, platelet count 520, serum sodium 129, serum chloride 92, troponin negative at <0.012, proBNP low at 218 and COVID antigen negative. He reportedly had fevers at home and
blood cultures were collected in the ER. He was given cefepime/vancomycin in the ER, also a 250 cc bolus of NS 0.9% and started on heparin gtt. Given his high oxygen requirements he was admitted to the IMU and pulmonary service consulted for
additional management/recommendations.
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
Impression:
#Acute bilateral submassive PE without RV strain provoked from known stage IV lung cancer
#Pym-ekyr-enqmqkjvjve hemoptysis (started last month after starting Eliquis, which is likely related to his stage IV lung cancer)
#RLE acute DVT involving mid-femoral vein (seen on LE duplex from 05/17/2024)
#Chronic anemia
#Chronic thrombocytosis likely reactive due to known malignancy
#Hypochloremic, hyponatremia likely due to reduced PO intake, and may possibly be a component of paraneoplastic syndrome (SIADH)
#Moderate COPD via spirometry from 04/09/2024 showing post-bronchodilator FEV1: 1.88 L / 52% predicted on chronic prednisone 5 mg daily + Spiriva/Advair
#Bullous emphysema seen on recent CT chest from 04/08/2024 predominantly in the upper lung sánchez
#Mild restrictive lung defect from PFT as above with post-bronchodilator FVC: 3.45 L / 73% predicted
#Right perihilar mass with recently diagnosed stage IV lung adenocarcinoma with progressive endobronchial spread, small�moderate pericardial effusion and bilateral adrenal masses seen on CTA chest from 04/08/2024
#Paroxysmal A-fib on Eliquis (started last month) and also on Multaq
Plan:
- Continue with systemic anticoagulation --> now on therapeutic LMWH
- Troponin was negative on admission and proBNP was relatively low at 218
- Echo check shows normal RV size with hypokinetic RV, with no evidence of pulmonary hypertension with PASP at 25-30 mmHg. LVEF preserved at 55 to 60% and no regional WMA seen. Of note he did have a recent echo on 05/10/2024 which did not show any
evidence of RV dysfunction
- Lower extremity duplex from 05/17/2024 shows a nonocclusive thrombus in the RLE within the mid-femoral vein
- Recommend hematology/oncology consult
- We should try to get the CTA chest imaging from [facility] onto our system so that all providers can review
- He reportedly had fevers at home but has been afebrile since admission
- Blood cultures collected in ER (on 05/15/2024) and shows NGTD
- Sputum culture also collected 05/16/2024 and shows NGTD
- Continue with empiric antibiotics with cefepime/doxycycline; check CXR and UA with reflex to culture; check urine antigens for legionella and Strep PNA
- Continue to monitor his hemoptysis and if worsens then anticoagulation will need to be stopped
- Trend H&H with serial CBC and transfuse to keep Hb >7 g/dL
- Antitussants prn
- He is on Spiriva + Advair at home � continue these while hospitalized
- Maintain SpO2 88-95% with supplemental O2 and wean down high flow FiO2 as tolerated
- Continue with Xopenex TID
- Continue with home dose of prednisone --> given that his his acute respiratory failure was due to an acute PE, there is no need to raise his prednisone dose at this time
- Continue to trend serum sodium with goal 135�145; appears urine sodium is high at 160 also with high urine osmolarity at 837; this is consistent with SIADH; continue with fluid restriction otherwise his sodium may continue to decrease; stop IVF
- wants pt to have a dietary consult --> I will place this order
- Continue with Multaq
- Incentive spirometer q1hr while awake
- Replete electrolytes with K>4, Mg>2
- Maintain euglycemia with goal BG >100 and <180
- prn nebulized bronchodilators - not currently bronchospastic
- DVT ppx: heparin gtt --> therapeutic LMWH
I updated his , Ziyad, at bedside and answered all of her questions.
Pulmonary service will continue to follow along.
Outside imaging:
CTA chest 05/15/2024:
1. Acute bilateral pulmonary embolism with a small to moderate clot burden most proximally involving left upper lobe pulmonary artery. No signs of RV strain. RV/LV ratio is <1, normal.
2. New bilateral pulmonary opacities may reflect postradiation changes and/or superimposed pneumonia
3. Interval decrease in size of mediastinal mass and thoracic lymph nodes
4. Stable adrenal metastasis
Total time spent today was 38 minutes for this encounter. Time includes reviewing laboratory test/imaging results, reviewing pertinent medical records, obtaining and reviewing medical history, performing an appropriate exam, ordering medications,
tests and procedures. Time also includes documentation of this encounter, coordinating patient care and communicating with other healthcare professionals. Total time does not include separately billed tests performed on this date of service.
Subjective Data
-
Date of Service:
Date of Service: May 17, 2024
Chief Complaint: Pulmonary Follow Up
Subjective:
Patient seen today at bedside, also present. Very tired. Continuing to cough and had a coughing spell overnight from 2:30 AM to 3:30 AM. She is currently on 10 L/min mid flow nasal cannula with SpO2 91%, heart rate 83 and BP 92/61. The
is upset that he is on a fluid restriction. I explained that is due to his low sodium. He says his shortness of breath is still not good but it is not worsening either. Denies HUTCHISON, nausea, vomiting, fevers or chills.
Review of Systems
General: Other (Negative unless mentioned above)
Objective Data
Data Reviewed
Vital Signs / I&O / Oxygen:
Vital Signs
Temp Pulse Resp BP Pulse Ox
97.9 F 64 19 101/65 94
05/17/24 07:52 05/17/24 06:00 05/17/24 06:00 05/17/24 02:49 05/17/24 06:00
Intake and Output
05/16/24 05/17/24 05/18/24
06:59 06:59 06:59
Intake Total 480 / 480 2009
Output Total 200 / 200 1350 / 1350
Balance 280 / 280 660 / 660
SaO2 94
Physical Exam
General: Respiratory Distress (negative), Chills (negative) and Sweats (negative)
HEENT: Normocephalic and Anicteric
Cardiovascular: S1-S2 and Peripheral Edema (negative)
Respiratory: Wheeze (negative), Crackles (Left middle lung field), Rhonchi (negative), Non-Labored Respirations, Stridor (negative) and Other (Diminished breath sounds in the right hemithorax)
GI: Soft, Non Distended, Non Tender and Normal Bowel Sounds
Neurology: AO x 3 and Tremors (negative)
Skin: Warm, Dry, Cyanosis (negative) and Jaundice (negative)
Labs/Micro/Reports
Lab Data
05/15/24 22:10
Laboratory Results
05/16/24 05/16/24 05/17/24
12:32 18:27 01:27
APTT 95.0 H 64.4 H 78.9 H
Microbiology
05/15/24 22:10 Blood/Venous Blood Culture - Preliminary
No Growth in 24 hours- Final report to follow
05/15/24 22:10 Blood/Venous Blood Culture - Preliminary
No Growth in 24 hours- Final report to follow
05/16/24 11:14 Sputum Gram Stain - Preliminary
05/15/24 22:10 Nasal Swab Influenza Types A & B (JOSIE) - Final
Negative for Influenza A & B, NAAT
Negative results must be combined with clinical observations
and patient history.
Nucleic Acid Amplification test (NAAT)performed on the
[employer] platform.
--- NOTE | 2024-05-17 09:23 | W.PN.HOSP.TC ---
Today's Communication/Plan
-
Labs are pending
Transition heparin drip to [id number]
Encourage p.o. intake
Wean oxygen as tolerated
Hematology consultation
Assessment / Plan
Assessment / Plan
63-year-old male with history of adenocarcinoma of the lung came to the ER for an abnormal CAT scan. He follows with [facility]. He was hospitalized here for atrial fibrillation early April 2024. He was discharged with Cardizem and Eliquis. Patient
developed hemoptysis and Eliquis was discontinued. Cardizem was also changed to Multaq. He underwent 10 sessions of radiation from April to May at [facility]. Not on any chemo at present. The few days prior to admission he
became short of breath when he ran to get out of the cold. Outpatient CT was done which showed PE with moderate clot burden. Patient went to [facility] for evaluation but did not want to wait therefore came to [place]
Patient appears to be cachectic
Awake and alert
Cardiovascular system S1-S2 appreciated
Chest decreased breath sounds but clear
No lower extremity edema
CT PE study from [facility] reviewed by me and also report-acute bilateral pulmonary embolism with a small to moderate clot burden most approximately involving left upper lobe pulmonary artery. No signs of RV strain. RV to LV ratio less than 1. New
bilateral pulmonary opacities may reflect postradiation changes and also thrombus pneumonia. Interval decrease in size of mediastinal mass and thoracic lymph nodes. Stable adrenal metastasis.
In addition my review of images also shows COPD changes and bullae.
Echo 05/16/2024-normal LV size, wall thickness and systolic function. EF 55 to 60%. Normal RV size. RV appears hypokinetic. Small posterior pericardial effusion-unchanged
# Pulmonary embolism
Bilateral per outpatient report most prominent in the left upper lobe
Continue anticoagulation transition heparin drip to Lovenox
Lovenox education
Oxygen supplementation as needed
Check venous Dopplers lower extremity -Pending
( 05/16/24) recommended to keep him on Lovenox weight based bid for discharge and not NOACS , Lovenox can be stopped any time when there is a bleed)
Pulmonary consultation appreciated
Hematology consulted per discussion with pulmonary
# Pneumonia/pneumonitis
Unclear could be radiation related infectious/
Fevers at home therefore continue antibiotics-cefepime and doxycycline
Patient is on prednisone as outpatient to be continued
Influenza and COVID-negative
Blood cultures Neg
Check sputum cultures-Pending
# Acute respiratory failure-on 10 L O2
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
Has significant mediastinal disease and endobronchial disease including complete occlusion of the right middle lobe bronchus and partial occlusion of the right mainstem bronchus. Status post recent radiation
Follows with Dr.Roger Bojorquez [phone], Spoke to Dr Bojorquez 05/16/24
Patient has primary resistant cancer. he was treated with 9LA regimen ( Nivolumab/Ipilimumab /Taxol/Carbo) and not responded. Recently received palliative radiation therapy for mediastinal disease. He is slowly recovering from Radiation induced
esophagitis . Plan is for to have goals of care discussion . Poor PS is in the way of his treatment as well now. Alimta is being considered ( In at least 3 weeks out from now)but not sure if he will benefit/tolerate.
# Atrial fibrillation-paroxysmal
Continue Multaq
Currently on anticoagulation started this admit
Echo 05/16/2024-normal LV size, wall thickness and systolic function. EF 55 to 60%. Normal RV size. RV appears hypokinetic. Small posterior pericardial effusion-unchanged
# Hyponatremia-check TSH, serum and urine osmolality studies urine sodium. C/W SIADH.
1200 ml FR. If not better will need Lasix/ Samsca
# Thrombocytosis
# COPD-on Spiriva, fluticasone/salmeterol inhalers as outpatient-continue
Also on 5 mg of prednisone as outpatient-continue
# Protein calorie malnutrition-SEVERE. They have Projectioneering suppliment that he uses. Declined eNSURE
# Cachexia-likely secondary to metastatic malignancy which I reviewed with patient's . Dr. Bojorquez also finds that this is not new. TSH low however free T4 normal. This could be secondary to euthyroid sick syndrome. Normal testosterone level.
Cortisol level pending.
# Ex-smoker
# GERD-Pepcid. They do not want Protonix.
# History of radiation-induced esophagitis-patient denies any symptoms at present
# History of splenectomy
# DVT prophylaxis-heparin
# DNR
Discussed with nursing at bedside
Discussed with patient's Ex at bed
Spoke to Dr Bojorquez 05/16/24
Patient has primary resistant cancer. he was treated with 9LA regimen ( Nivolumab/Ipilimumab /Taxol/Carbo) and not responded. Recently received palliative radiation therapy for mediastinal disease. He is slowly recovering from Radiation induced
esophagitis . Plan is for to have goals of care discussion . Poor PS is in the way of his treatment as well now. Alimta is being considered ( In at least 3 weeks out from now)but not sure if he will benefit/tolerate.
recommended to keep him on Lovenox weight based bid for discharge and not NOACS 9 Lovenox can be stopped any time when there is a bleed)
Time spent over 50 min
Anticipated Discharge: > 48 hours
Subjective/Interval History
-
Date of Service: May 17, 2024
Objective Data
-
Labs:
Laboratory Results
05/17/24 05/17/24 05/17/24
01:27 06:00 07:30
APTT 78.9 H Pending
Sodium Pending
Potassium Pending
Chloride Pending
Carbon Dioxide Pending
BUN Pending
Creatinine Pending
Glucose Pending
Calcium Pending
Vital Signs:
Vital Signs
Temp Pulse Resp BP Pulse Ox
97.9 F 72 20 101/65 92
05/17/24 07:52 05/17/24 08:58 05/17/24 08:58 05/17/24 02:49 05/17/24 08:58
I&O
05/16/24 05/17/24 05/18/24
06:59 06:59 06:59
Intake Total 480 / 480 2009
Output Total 200 / 200 1350 / 1350 300 / 300
Balance 280 / 280 660 / 660 -300 / -300
[2024-05-17] MEDS: MULTAQ 400 MG PO ×2 (09:33→22:35)
[2024-05-17] MEDS: DELTASONE 5 MG PO (09:34)
[2024-05-17] MEDS: PEPCID 20 MG PO (09:34)
[2024-05-17 10:06] LABS: APTT 60.9 Sec (23.4-35.0)
[2024-05-17 10:36] VITALS: BP 112/72
[2024-05-17 10:44] LABS: Blood Urea Nitrogen 8 mg/dl (9-20); Calcium 9.1 mg/dl (8.4-10.2); Carbon Dioxide 24 mmol/L (22-30); Chloride 99 mmol/L (98-107); Estimated Creatinine Clearance 95 ml/min; Glucose 91 mg/dl (70-99); Potassium 4.7 mmol/L (3.5-5.1); Sodium 131 mmol/L (135-145); eGFR > 60.00
[2024-05-17] MEDS: LOVENOX 60 MG SC ×2 (11:29→22:35)
[2024-05-17 11:33] LABS: Cortisol, Random 22.6 ug/dl
[2024-05-17 12:00] VITALS: BP 92/61
[2024-05-17 12:33] LABS: Hematocrit 29.4 % (39.0-52.0); Hemoglobin 9.9 g/dL (13.0-18.0); Mean Corp Hgb Conc. 33.7 g/dL (33.0-37.0); Mean Corpuscular Hgb 29.3 pg (27.0-31.0); Mean Platelet Volume 9.6 fL (7.4-10.4); Platelet Count 483 10^3/uL (130-400); Red Blood Cell Count 3.38 10^6/uL (4.70-6.10); Red Cell Dist. Width 15.9 % (11.5-14.5); White Blood Cell Count 8.2 10^3/uL (4.8-10.8)
--- NOTE | 2024-05-17 12:47 | CON.ONC ---
Impression
Impression
IV lung adenocarcinoma with bilateral adrenal metastasis, metastasis to chest and pelvis-continue OP management at [facility], no further inpatient recommendations
thrombocytosis secondary to splenectomy
AF, hemoptysis on DOAC
PE, Nonocclusive thrombus within the mid right femoral veins -started on therapeutic lovenox by primary service in collaboration with pt primary medical oncologist.
hyponatremia improved
Plan
Plan
OP follow up with primary oncologist for continued management of IV lung adenocarcinoma and VTE
monitor for bleeding
check iron studies
would benefit from palliative care service support upon discharge for continued GOC and symptom support if pt and consent to this supportive service
Pt/ are not interested in [place] cancer Specialist involvement in his case at this time. Hematology will sign off, please reach out for any further questions or concerns
Patient History
History of Present Illness
63yo M admitted 05/16/2024 for abnormal OP imaging. He tells me that his CT chest done at [facility] showed pulmonary emboli with moderate clot burden and no radiographic evidence of RV strain (I do not have results to review). He was referred to [facility], however, due to long wait, he left and presented to . He was hospitalized April 2024 for management of atrial fibrillation and started on a DOAC. He developed hemoptysis which prompted cessation of his DOAC. Unfortunately, he has now
developed a PE/DVT. The primary service discussed with his primary oncologist and in collaboration, he has started on therapeutic enoxaparin with plan to continue at discharge.
He is known to [facility] for treatment of stage IV adenocarcinoma. He has previously been treated iw nivolumab, ipilimumab, taxol, and carbo and unfortunately he tells me that his cancer was resistant and that he did not respond to
therapy. He underwent XRT April 2024-May 2024 complicated by esophagitis. He is not currently on systemic therapy at this time due to performance and nutritional status. History per pt report, I do not have records for review.
Past-Medical/Surgical History
PMH Stage IV Adenocarcinoma of the lung, A-Fib and COPD
PSH splenectomy
Social former smoker, deneis etoh or recreational drugs. disabled. lives with
Family denies malignancy
Patient Medication
�Medication �Instructions �Recorded �Confirmed �Last Taken �Type
acetaminophen 500 mg tablet 500 mg PO Q6HPRN PRN mild pain 04/08/24 05/15/24 Unknown History
(Tylenol Extra Strength)
codeine 10 mg-guaifenesin 100 mg/5 5 ml PO Q4H 04/08/24 05/15/24 04/08/24 History
mL oral liquid
diphenhydramine 25 1 tab PO HSPRN PRN sleep 04/08/24 05/15/24 04/07/24 History
mg-acetaminophen 500 mg tablet
(Acetaminophen PM)
docusate sodium 100 mg capsule 100 mg PO DAILYPRN PRN constipation 04/08/24 05/15/24 04/04/24 History
(Colace)
famotidine 20 mg tablet (Pepcid) 20 mg PO DAILY Gastrointestinal 04/08/24 05/15/24 04/07/24 History
Issue
prednisone 5 mg tablet 5 mg PO DAILY Anti-Inflammatory 04/08/24 05/15/24 04/07/24 History
albuterol sulfate 90 mcg/actuation 2 puff inhalation R Q4HPRN PRN 04/10/24 05/15/24 Unknown Rx
aerosol inhaler SOB/cough #8.5 grams
fluticasone propionate 230 2 puff inhalation R BID #12 grams 04/10/24 05/15/24 Unknown Rx
mcg-salmeterol 21 mcg/actuation
HFA inhaler
tiotropium bromide 2.5 2 puff inhalation R DAILY #4 grams 04/10/24 05/15/24 Unknown Rx
mcg/actuation mist for inhalation
(Spiriva Respimat)
dronedarone 400 mg tablet (Multaq) 400 mg PO BID 05/15/24 05/15/24 Unknown History
Active Medications
Generic Name Dose Route Start Last Admin
Trade Name Freq PRN Reason Stop Dose Admin
Acetaminophen 500 mg 05/16/24 02:39 05/17/24 02:38
Acetaminophen 500 Mg Tablet PO 06/13/24 02:38 500 mg
Q6HPRN PRN Administration
mild pain
Benzonatate 200 mg 05/16/24 11:59
Benzonatate 100 Mg Capsule PO 06/13/24 11:58
TIDPRN PRN
cough
Cefepime HCl 2,000 mg 05/16/24 06:00 05/17/24 05:47
Cefepime Hcl 2,000 Mg/12.5 Ml Vial IV 2,000 mg
Q8H RIZWAN Administration
Dronedarone 400 mg 05/16/24 08:00 05/17/24 09:33
Dronedarone (Multaq) 400 Mg Tablet PO 06/13/24 07:59 400 mg
BID RIZWAN Administration
Enoxaparin Sodium 60 mg 05/17/24 11:00 05/17/24 11:29
Enoxaparin Sodium 60 Mg/0.6 Ml Syringe SC 06/14/24 10:59 60 mg
Q12 RIZWAN Administration
Famotidine 20 mg 05/16/24 08:00 05/17/24 09:34
Famotidine 20 Mg Tablet PO 06/13/24 07:59 20 mg
DAILY RIZWAN Administration
Guaifenesin/Codeine Phosphate 5 ml 05/16/24 02:39 05/17/24 02:38
Guaifenesin/Codeine Solution (200 Mg/20 Mg) 10 Ml Cup PO 06/13/24 02:38 5 ml
Q4H PRN Administration
Cough
Doxycycline Hyclate 100 mg/ 260 mls @ 260 mls/hr 05/16/24 02:39 05/17/24 02:41
Sodium Chloride IV 260 mls
Q12H RIZWAN Administration
Levalbuterol HCl 1.25 mg 05/16/24 14:00 05/17/24 07:38
Levalbuterol 1.25 Mg/3 Ml Ampul INH 1.25 mg
R TID RIZWAN Administration
Protocol
Levalbuterol HCl 1.25 mg 05/16/24 12:30
Levalbuterol 1.25 Mg/3 Ml Ampul INH
R Q6HPRN PRN
sob
Protocol
Prednisone 5 mg 05/16/24 08:00 05/17/24 09:34
Prednisone 5 Mg Tablet PO 06/13/24 07:59 5 mg
DAILY RIZWAN Administration
Fluticasone/Salmeterol 2 puff 05/16/24 08:00 05/17/24 07:38
Advair Hfa 230/21 Inhaler INH 06/13/24 07:59 2 puff
R BID RIZWAN Administration
Protocol
Sodium Chloride 0 flush 05/16/24 04:00
Sodium Chloride 0.9% (Flush) Syringe IV 06/13/24 03:59
PER PROTOCOL RIZWAN
Sterile Water 10 ml 05/16/24 06:00 05/17/24 05:47
Sterile Water For Injection 10 Ml Vial IV 06/13/24 05:59 10 ml
Q8H RIZWAN Administration
Tiotropium [place] 2 puff 05/16/24 08:00 05/17/24 07:38
Tiotropium (Spiriva Respimat) 2.5 Mcg Inhaler INH 06/13/24 07:59 2 puff
R DAILY RIZWAN Administration
Protocol
Physical Exam
-
General: No Apparent Distress, Appears Chronically Ill and Cachetic
HEENT: Moist Mucous Membranes; Negative Jaundice
Cardiology: Normal Sinus Rhythm
Pulmonary: Other (diminished)
GI: Soft
Extremities: Pulses Present
Neurology: Non Focal
Skin: Warm
Psych: Calm
Labs
Lab Results
WBC 8.2 10^3/uL (4.8-10.8) 05/17/24 12:07
RBC 3.38 10^6/uL (4.70-6.10) L 05/17/24 12:07
Hgb 9.9 g/dL (13.0-18.0) L 05/17/24 12:07
Hct 29.4 % (39.0-52.0) L 05/17/24 12:07
MCV 87.0 fL (80.0-94.0) 05/17/24 12:07
MCH 29.3 pg (27.0-31.0) 05/17/24 12:07
MCHC 33.7 g/dL (33.0-37.0) 05/17/24 12:07
RDW 15.9 % (11.5-14.5) H 05/17/24 12:07
Plt Count 483 10^3/uL (130-400) H 05/17/24 12:07
MPV 9.6 fL (7.4-10.4) 05/17/24 12:07
Abs Immat Gran (auto) 0.0 10^3/uL (0-0.05) 05/15/24 22:10
Absolute Neuts (auto) 6.8 10^3/uL (1.4-6.5) H 05/15/24 22:10
Absolute Lymphs (auto) 0.2 10^3/uL (1.2-3.4) L 05/15/24 22:10
Absolute Monos (auto) 0.5 10^3/uL (0.1-0.6) 05/15/24 22:10
Absolute Eos (auto) 0.1 10^3/uL (0-0.7) 05/15/24 22:10
Absolute Basos (auto) 0.0 10^3/uL (0-0.2) 05/15/24 22:10
Immature Gran % 0.4 % (0-0.5) 05/15/24 22:10
Neutrophils % 88.9 % (42.2-75.2) H 05/15/24 22:10
Lymphocytes % 2.6 % (20.5-51.1) L 05/15/24 22:10
Monocytes % 7.0 % (1.7-9.3) 05/15/24 22:10
Eosinophils % 0.7 % (0-6) 05/15/24 22:10
Basophils % 0.4 % (0-2) 05/15/24 22:10
Creatinine 0.6 mg/dL (0.7-1.3) L 05/17/24 09:30
Vital Signs
Vital Signs
Temp Pulse Resp BP Pulse Ox
97.9 F 91 17 112/72 94
05/17/24 07:52 05/17/24 10:36 05/17/24 10:36 05/17/24 10:36 05/17/24 10:36
[2024-05-17 14:26] LABS: Iron 37 ug/dl (49-181); Percent Saturation 19 % (20-50); Total Iron Binding Capacity 190 ug/dl (261-462)
--- NOTE | 2024-05-17 14:35 | PN.CDI ---
CDI
- -
CDI:
Physician Documentation Request
Admit Date: 05/16/24 00:16
Dear Doctor Ivonne,
Please review the following and provide your response in the progress notes.
Clinical Indicators:
05/17 Exams: US Periph Venous LOWER Ext Dimitri
#FINDINGS: Duplex venous ultrasound of both lower extremities is performed.
#...mid right femoral vein, there is expansile noncompressible
#...thrombus which is nonocclusive.
#IMPRESSION: Nonocclusive thrombus within the mid right femoral vein,
#...which is likely acute.
Based on the above Ultrasound results and your clinical assessment, please document your findings:
Acute right femoral DVT
Acute on chronic right femoral DVT
Chronic right femoral DVT
Other (please specify)
Use of terms such as suspected, likely, concern for, or probable (associated with a specific diagnosis that is being evaluated, monitored, or treated as if it exists) are acceptable and can be coded in the inpatient setting, when documented at the
time of discharge.
Thank you,
Tegan Castaneda RN BSN CCDS
CDI Specialist
please contact via tiger text
Please use your independent medical judgment in providing your response.
--- NOTE | 2024-05-17 18:53 | PTCARENOTE ---
Ox3 quiet, soft spoken. Lungs diminished- Freq harsh prod cough. 10L Midflow 96%. Heparin dcd today and transitioned to Lovenox. SC demonstration/ 15 min of education given. Pt or ex will now like to try to do next one.
US Legs, ECHO completed- Urine specimens sent to lab.
Sits on side of bed all day. Continues to constantly verbalize [facility] POC / instructed deferred to attending tomorrow.
[2024-05-17 19:08] LABS: Urine Albumin Negative (Neg - Trace); Urine Bilirubin Negative (Negative); Urine Character Clear (Clear); Urine Color Yellow; Urine Glucose Negative (Negative); Urine Ketone Negative (Negative); Urine Leukocyte Negative (Negative); Urine Nitrite Negative (Negative); Urine Occult Blood Negative (Negative); Urine Urobilinogen Negative (Neg - 1+)
[2024-05-17 19:41] VITALS: BP 144/77
--- NOTE | 2024-05-17 20:05 | PTCARENOTE ---
Assumed care of Pt from day RN. Pt AAOx3, Pt able to make needs known. Pt currently on 10-12L Midflow, SPO2 92-94%. Pt requesting to wait for to be at bed side to take evening medication. Pt had no complaints at this time. Call mosley within
reach.
[2024-05-17 20:18] VITALS: BP 146/75
[2024-05-17 22:00] VITALS: BP 136/74
--- NOTE | 2024-05-17 22:03 | PTCARENOTE ---
Pt returned and immediately requesting to speak to a Qi Specialist. This RN introduced self as Pt nurse for the evening saying I will contact the motel manager, Is there anything I can help with until she gets here? Pt responding ' no, Hurtado I do not
want to speak to anyone but a motel manager and then they can talk to you'. RN replied OK i will go contact her now. Nursing maternity floor supervisor contacted and currently at bed side with Pt and .
[2024-05-18] VITALS (16 sets, daily range): BP systolic 84–117; BP diastolic 47–69; PULSE 89–98; O2SAT 87; BMI 15.4
--- NOTE | 2024-05-18 02:17 | PTCARENOTE ---
Education given to Pt and at bed side. Education and demonstration on Lovenox shot. Pt giving verbal consent to Lovenox shot. Pt was able to give self Lovenox shot with physical and verbal guidance from this RN. Questions answered best of this
RN's ability. Pt and expressing very positive results on education and giving Pt chance to take some control back and do self care. Pt would like to continue to learn and give self shot along with so at times she can give if he is unable.
[2024-05-18] MEDS: VIBRAMYCIN 260 MG IV (03:07)
[2024-05-18 03:28] LABS: % Basophils 0.3 % (0-2); % Eosinophils 0.5 % (0-6); % Immature Granulocytes 0.8 % (0-0.5); % Lymphocytes 3.1 % (20.5-51.1); % Monocytes 6.7 % (1.7-9.3); % Neutrophils 88.6 % (42.2-75.2); Absolute Immature Granulocytes 0.1 10^3/uL (0-0.05); Absolute Lymphocytes 0.2 10^3/uL (1.2-3.4); Absolute Monocytes 0.4 10^3/uL (0.1-0.6); Absolute Neutrophils 5.7 10^3/uL (1.4-6.5); Hematocrit 27.1 % (39.0-52.0); Mean Corp Hgb Conc. 33.2 g/dL (33.0-37.0); Mean Corpuscular Hgb 28.9 pg (27.0-31.0); Mean Corpuscular Volume 87.1 fL (80.0-94.0); Mean Platelet Volume 9.2 fL (7.4-10.4); Nucleated Red Blood Cells % 0 % (-); Platelet Count 435 10^3/uL (130-400); Red Blood Cell Count 3.11 10^6/uL (4.70-6.10); Red Cell Dist. Width 15.6 % (11.5-14.5); White Blood Cell Count 6.4 10^3/uL (4.8-10.8)
[2024-05-18 03:50] LABS: Blood Urea Nitrogen 10 mg/dl (9-20); Carbon Dioxide 23 mmol/L (22-30); Chloride 97 mmol/L (98-107); Estimated Creatinine Clearance 89 ml/min; Glucose 142 mg/dl (70-99); Potassium 4.4 mmol/L (3.5-5.1); Sodium 128 mmol/L (135-145); eGFR > 60.00
[2024-05-18] MEDS: MAXIPIME 2000 MG IV (05:42)
[2024-05-18] MEDS: STERILE WATER FOR INJECTION 10 ML IV (05:42)
[2024-05-18] MEDS: NSS 1000 IV ×2 (05:42→16:56)
--- NOTE | 2024-05-18 05:59 | PTCARENOTE ---
Pt BP's becoming soft over, night AGRICULTURAL SYSTEMS SPECIALIST made aware. NS@80/hr renewed. Pt Na also dropping in AM labs. Education given to Pt before starting IV fluids. Pt had no questions or complaints at this time.
[2024-05-18] MEDS: XOPENEX 1.25 MG INHALANT SOLUTION INH ×3 (07:49→19:05)
[2024-05-18] MEDS: SPIRIVA RESPIMAT 2.5 MCG 2 PUFF INH (07:50)
[2024-05-18] MEDS: ADVAIR HFA 230/21 MCG INHALER 2 PUFF INH ×2 (07:50→19:06)
[2024-05-18] MEDS: MULTAQ 400 MG PO ×2 (08:30→20:33)
[2024-05-18] MEDS: LOVENOX 60 MG SC ×2 (08:30→21:35)
[2024-05-18] MEDS: DELTASONE 5 MG PO (08:30)
[2024-05-18] MEDS: TYLENOL 500 MG PO ×2 (08:30→20:41)
[2024-05-18] MEDS: PEPCID 20 MG PO (08:30)
[2024-05-18] MEDS: ROBITUSSIN AC 5 ML PO ×2 (08:31→23:00)
--- NOTE | 2024-05-18 08:39 | W.PN.HOSP.TC ---
Today's Communication/Plan
-
Infectious disease consultation requested
Add midodrine
Wean oxygen as tolerated
Trial of Lasix if blood pressure improves
If Lasix does not help hyponatremia may need Samsca.
Continue FR
Assessment / Plan
Assessment / Plan
63-year-old male with history of adenocarcinoma of the lung came to the ER for an abnormal CAT scan. He follows with [facility]. He was hospitalized here for atrial fibrillation early April 2024. He was discharged with Cardizem and Eliquis. Patient
developed hemoptysis and Eliquis was discontinued. Cardizem was also changed to Multaq. He underwent 10 sessions of radiation from April to May at [facility]. Not on any chemo at present. The few days prior to admission he
became short of breath when he ran to get out of the cold. Outpatient CT was done which showed PE with moderate clot burden. Patient went to [facility] for evaluation but did not want to wait therefore came to [facility]
Patient appears to be cachectic
Awake and alert
Cardiovascular system S1-S2 appreciated
Chest decreased breath sounds but clear
No lower extremity edema
CT PE study from [facility] reviewed by me and also report-acute bilateral pulmonary embolism with a small to moderate clot burden most approximately involving left upper lobe pulmonary artery. No signs of RV strain. RV to LV ratio less than 1. New
bilateral pulmonary opacities may reflect postradiation changes and also thrombus pneumonia. Interval decrease in size of mediastinal mass and thoracic lymph nodes. Stable adrenal metastasis.
In addition my review of images also shows COPD changes and bullae.
Echo 05/16/2024-normal LV size, wall thickness and systolic function. EF 55 to 60%. Normal RV size. RV appears hypokinetic. Small posterior pericardial effusion-unchanged
# Pulmonary embolism
Bilateral per outpatient report most prominent in the left upper lobe
Transitioned heparin drip to Lovenox 05/17/23
Lovenox education
Oxygen supplementation as needed and wean as tolerated.
Venous Dopplers lower extremity -acute nonocclusive thrombus in the mid right femoral vein
( 05/16/24) recommended to keep him on Lovenox weight based bid for discharge and not NOACS (Lovenox can be stopped any time when there is a bleed)
Pulmonary consultation appreciated
Hematology consultation noted-signed off
# Pneumonia/pneumonitis
Unclear could be radiation related infectious
Fevers at home therefore continue antibiotics-cefepime and doxycycline
Patient is on prednisone as outpatient to be continued
Influenza and COVID-negative
Blood cultures Neg
Sputum cultures with usual dino
# Acute respiratory failure-on 10 L O2-wean as tolerated
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
Has significant mediastinal disease and endobronchial disease including complete occlusion of the right middle lobe bronchus and partial occlusion of the right mainstem bronchus. Status post recent radiation
Follows with Dr.Roger Bojorquez [phone], Dr Coronado Spoke to Dr Bojorquez 05/16/24
Patient has primary resistant cancer. he was treated with 9LA regimen ( Nivolumab/Ipilimumab /Taxol/Carbo) and not responded. Recently received palliative radiation therapy for mediastinal disease. He is slowly recovering from Radiation induced
esophagitis . Plan is for to have goals of care discussion . Poor PS is in the way of his treatment as well now. Alimta is being considered ( In at least 3 weeks out from now)but not sure if he will benefit/tolerate.
# Atrial fibrillation-paroxysmal
Continue Multaq
Currently on anticoagulation started this admit
Echo 05/16/2024-normal LV size, wall thickness and systolic function. EF 55 to 60%. Normal RV size. RV appears hypokinetic. Small posterior pericardial effusion-unchanged
# Hyponatremia-check TSH, serum and urine osmolality studies urine sodium. C/W SIADH.
1200 ml FR.
If not better will need Lasix/ Samsca discussed with patient and .
Add midodrine so blood pressure improves for the trial of Lasix
# Chronic hypotension-patient was on midodrine in the past per now restarted
# Thrombocytosis
# COPD-on Spiriva, fluticasone/salmeterol inhalers as outpatient-continue
Also on 5 mg of prednisone as outpatient-continue
# Protein calorie malnutrition-SEVERE. They have [employer] suppliment that he uses. Declined eNSURE
# Cachexia-likely secondary to metastatic malignancy which I reviewed with patient's . Dr. Bojorquez also finds that this is not new. TSH low however free T4 normal. This could be secondary to euthyroid sick syndrome. Normal testosterone level.
Cortisol level pending.
# Ex-smoker
# GERD-Pepcid. They do not want Protonix.
# History of radiation-induced esophagitis-patient denies any symptoms at present
# History of splenectomy
# DVT prophylaxis-heparin
# DNR
Discussed with nursing at bedside
Discussed with patient's Ex at bed, all questions answered
Spoke to Dr Bojorquez 05/16/24
Patient has primary resistant cancer. he was treated with 9LA regimen ( Nivolumab/Ipilimumab /Taxol/Carbo) and not responded. Recently received palliative radiation therapy for mediastinal disease. He is slowly recovering from Radiation induced
esophagitis . Plan is for to have goals of care discussion . Poor PS is in the way of his treatment as well now. Alimta is being considered ( In at least 3 weeks out from now)but not sure if he will benefit/tolerate.
recommended to keep him on Lovenox weight based bid for discharge and not NOACS 9 Lovenox can be stopped any time when there is a bleed)
Time spent over 50 min
Anticipated Discharge: > 48 hours
Subjective/Interval History
-
Date of Service: May 18, 2024
Objective Data
-
Labs:
Laboratory Results
05/18/24
03:19
WBC 6.4
Hgb 9.0 L
Hct 27.1 L
Plt Count 435 H
Sodium 128 L
Potassium 4.4
Chloride 97 L
Carbon Dioxide 23
BUN 10
Creatinine 0.6 L
Glucose 142 H
Calcium 9.0
Vital Signs:
Vital Signs
Temp Pulse Resp BP Pulse Ox
98.0 F 71 21 94/55 96
05/18/24 03:26 05/18/24 06:00 05/18/24 06:00 05/18/24 06:00 05/18/24 06:00
I&O
05/17/24 05/18/24 05/19/24
06:59 06:59 06:59
Intake Total 2009 720 / 720
Output Total 1350 / 1350 975 / 975
Balance 660 / 660 -255 / -255
--- NOTE | 2024-05-18 09:36 | CON.ID ---
Consultation
-
Date/Time Consultation Requested: May 17, 2024 1531
Date/Time Consultation Performed: May 18, 2024 0940
Requesting Provider: Dr. Diego Coronado
Performing Provider: Dr. Jeanette Elena
Reason for Consultation: Pneumonia
Chief Complaint / Past History
Chief Complaint
SOB
History of Present Illness
History obtained from his at bedside, from patient and from review of medical records. He is a 63-year-old male with a 21-ittp-wjjf tobacco history, COPD, remote history of splenectomy due to trauma, diagnosed with stage IV poorly
differentiated adenocarcinoma of the lung, stage 4b fall 2023, received immunotherapy with progression, and now on radiation since April at [facility], complicated by radiation esophagitis, dysphagia, poor appetite, weight loss. He developed 5-day
history of acute shortness of breath. On May 15, he had CT a of the chest at [facility] which showed PE with moderate clot burden. There was a long wait at [facility] ER and therefore he left and came to [facility] ER. Patient was hypoxic. He
was started on cefepime and IV doxycycline. No fevers here. Patient reports he did have fever at home. He has chronic cough now improving. He was on Eliquis for A-fib in April but which was subsequently stopped due to hemoptysis. He now
coughs up mucus and sometimes specks of blood in the sputum. Dysphagia improving. Patient's states she will start him on ivermectin for the metastatic cancer as nothing else is working.
Past History
Additional Past Medical History:
Stage IV lung adenocarcinoma with mets to chest, abdomen and pelvis undergoing XRT, immunotherapy at [facility]
Radiation esophagitis
COPD
HTN
Afib
Splenectomy due to trauma 1988
Allergy History:
No Known Allergies Allergy (Verified 04/08/24 12:37)
Medications Reviewed: Yes
Current Antibiotics:
Cefepime d4
doxycycline IV d4
Social History
Tobacco: Former Smoker (quit 01/2024)
Alcohol: Former
Personal:
Living: With Family
Review of Systems
Review of Systems
General: Change in Appetite
HEENT: Negative Headache
Cardiovascular: Negative Edema
Respiratory: Dyspnea and Cough
Gasteroenterology: Negative Nausea, Vomiting or Diarrhea
Genital / Urological: Negative Dysuria or Flank Pain
Endocrine: Weakness
Skin / Hair / Nails: Negative Rash
Neurological: Negative Dizziness
All systems: All other systems were reviewed and were negative
Vital Signs
Temp Pulse Resp BP Pulse Ox
98.0 F 106 20 94/55 93
05/18/24 03:26 05/18/24 09:25 05/18/24 09:25 05/18/24 06:00 05/18/24 09:25
Physical Exam
Physical Exam
Constitutional: Chronically Ill and Cachetic
Eyes: No Conjunctival Hemorrhage and Sclera Anicteric
Pharynx: Negative Erythema
Oral: No Thrush and No Ulcers
Cardiovascular: Regular Rate and S1/S2
Pulmonary: Clear
Gastrointestinal: Soft, Non Tender, Non Distended and Normal Bowel Sounds
Genito-Urinary: Negative CVA Tenderness
Extremities: Negative Edema
Neurological: AO x 3
Lab / Diagnostic Study Results
05/18/24 03:19
05/18/24 03:19
Abs Immat Gran (auto) 0.1 10^3/uL (0-0.05) H 05/18/24 03:19
Absolute Neuts (auto) 5.7 10^3/uL (1.4-6.5) 05/18/24 03:19
Absolute Lymphs (auto) 0.2 10^3/uL (1.2-3.4) L 05/18/24 03:19
Absolute Monos (auto) 0.4 10^3/uL (0.1-0.6) 05/18/24 03:19
Absolute Basos (auto) 0.0 10^3/uL (0-0.2) 05/18/24 03:19
Immature Gran % 0.8 % (0-0.5) H 05/18/24 03:19
Neutrophils % 88.6 % (42.2-75.2) H 05/18/24 03:19
Lymphocytes % 3.1 % (20.5-51.1) L 05/18/24 03:19
Monocytes % 6.7 % (1.7-9.3) 05/18/24 03:19
Eosinophils % 0.5 % (0-6) 05/18/24 03:19
Basophils % 0.3 % (0-2) 05/18/24 03:19
PT 14.9 Sec (11.4-14.6) H 05/16/24 05:18
INR 1.14 05/16/24 05:18
Lactic Acid Cancelled 05/16/24 02:15
Microbiology Results
Micro:
05/16/24 11:14 Respiratory Culture - Final
Sputum Usual Respiratory Dino
Gram Stain - Final
05/15/24 22:10 Blood Culture - Preliminary
Blood/Venous No Growth in 48 hours- Final report to follow
05/15/24 22:10 Blood Culture - Preliminary
Blood/Venous No Growth in 48 hours- Final report to follow
05/17/24 18:40 Legionella Urinary Antigen - Final
Urine Negative for Legionella pneumophila Serogroup 1 antigen.
A negative result does not rule out the possiblity of
Legionella infection due to other serogroups or species of
Legionella. Clinical correlation is recommended.
Streptococcus pneumoniae Antigen (M - Final
Negative for Streptococcus pneumoniae antigen.
A negative result does not exclude infection with
Streptococcus pneumoniae. Clinical correlation is
recommended.
05/15/24 22:10 Influenza Types A & B (JOSIE) - Final
Nasal Swab Negative for Influenza A & B, NAAT
Negative results must be combined with clinical observations
and patient history.
Nucleic Acid Amplification test (NAAT)performed on the
[employer] platform.
05/17/24 CXR: Parenchymal opacity within both lungs, greater on the left compared to the right, and very likely representing pneumonia. Small to moderate right pleural effusion. Confluent opacity in the medial right lower lung, which may be due to a
combination of mass and associated atelectasis.
05/17/24 Peripheral vascular US: Nonocclusive thrombus within the mid right femoral vein, which is likely acute. No evidence of deep venous thrombosis of the left lower extremity. There is focal dilation of the left popliteal vein, compatible with
venous varix/aneurysm.
Assessment / Plan
# Acute PE
# Stage IV lung ca on XRT
# Radiation esophagitis
# Cachexia due to cancer and protein-calorie malnutrition
# Acute hypoxemic respiratory failure
- Likely due to PE, lung ca, XRT
- However, cannot exclude post-obstructive PNA vs aspiration PNA
- Sputum - normal resp dino
- DC Cefepime/IV doxy.
- Transition to amox/clav 800mg po suspension bid through 05/22/24.
When esophagitis improves can change amox-clav suspension to tablet 875mg po bid, crush and take with applesauce.
Ordered lactobacillus as per pt's request.
ID will sign off. Call with questions.
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
Stage IV lung adenocarcinoma with mets to chest, abdomen and pelvis undergoing XRT, immunotherapy at [facility]
Radiation esophagitis
COPD
HTN
Afib
Splenectomy due to trauma 1989
--- NOTE | 2024-05-18 09:42 | W.PN.PUL3 ---
Today's Communication / Plan
-
Systemic anticoagulation with eventual transition to NOAC, preferably Eliquis
Monitor his hemoptysis quantity
Broad-spectrum antibiotics to complete a 7-day course assuming he continues to improve and remains afebrile for 48 hours prior to stopping antibiotics
Will need repeat imaging with CXR vs CT chest in 4-6 weeks to follow up his PNA to resolution - this imaging can likely be done at [facility]
Antitussants
Advair + Spiriva with Xopenex
Pepcid
Multaq
Up OOB as tolerated
PT/OT
Poor prognosis given his stage IV adenocarcinoma now with an acute PE, hemoptysis and physical deconditioning
He is DNR/DNI
Assessment
-
Assessment: 63-year-old male former tobacco smoker with past medical history of stage IV and a carcinoma of the lung following with [facility] for treatment s/p XRT (04/2024 until this month, underwent 10 sessions, also on immunotherapy, not on chemo -
Dr. Bojorquez), moderate COPD, A-fib on on Multaq and hypertension who p/w SOB. He has metastatic lung cancer that was recently diagnosed at [facility] and he does not follow with pulmonology. During recent hospitalization from 04/08 - 04/10/2024
he was found to be in new onset rapid A-fib and Eliquis was initiated by cardiology. For the last 5 to 6 days he has become more short of breath which started abruptly. He checks his pulse ox at home and it has been low especially in the morning,
and he is not on home oxygen. Also has chest discomfort with coughing which is relatively unchanged. He had outpatient CT chest at [facility] showing pulmonary emboli with moderate clot burden with no RV strain and was referred to [facility] for further
treatment but left after he grew frustrated with their care. Here in the ER, he was afebrile to 97.9 �F, pulse rate 113, breathing at 30 breaths/min, BP 119/69 and saturating 80% on room air, which improved to the mid 90s on mid flow and then he
eventually required high flow nasal cannula. Initial labs showed Hb 11.4, platelet count 520, serum sodium 129, serum chloride 92, troponin negative at <0.012, proBNP low at 218 and COVID antigen negative. He reportedly had fevers at home and
blood cultures were collected in the ER. He was given cefepime/vancomycin in the ER, also a 250 cc bolus of NS 0.9% and started on heparin gtt. Given his high oxygen requirements he was admitted to the IMU and pulmonary service consulted for
additional management/recommendations.
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
Impression:
#Acute bilateral submassive PE without RV strain provoked from known stage IV lung cancer
#Rhm-gsat-mtxlzgybiux hemoptysis (started last month after starting Eliquis, which is likely related to his stage IV lung cancer)
#RLE acute DVT involving mid-femoral vein (seen on LE duplex from 05/17/2024)
#Chronic anemia
#Chronic thrombocytosis likely reactive due to known malignancy
#Hypochloremic, hyponatremia likely due to reduced PO intake in setting of paraneoplastic syndrome (SIADH)
#Moderate COPD via spirometry from 04/09/2024 showing post-bronchodilator FEV1: 1.88 L / 52% predicted on chronic prednisone 5 mg daily + Spiriva/Advair
#Bullous emphysema seen on recent CT chest from 04/08/2024 predominantly in the upper lung sánchez
#Mild restrictive lung defect from PFT as above with post-bronchodilator FVC: 3.45 L / 73% predicted
#Right perihilar mass with recently diagnosed stage IV lung adenocarcinoma with progressive endobronchial spread, small�moderate pericardial effusion and bilateral adrenal masses seen on CTA chest from 04/08/2024
#Paroxysmal A-fib on Eliquis (started last month) and also on Multaq
Plan:
- Continue with systemic anticoagulation --> now on therapeutic LMWH
- Troponin was negative on admission and proBNP was relatively low at 218
- Echo done on 05/16/2024 showed normal RV size with hypokinetic RV, with no evidence of pulmonary hypertension with PASP at 25-30 mmHg. LVEF preserved at 55 to 60% and no regional WMA seen. Of note he did have a recent echo on 05/10/2024 which did
not show any evidence of RV dysfunction
- Lower extremity duplex from 05/17/2024 shows a nonocclusive thrombus in the RLE within the mid-femoral vein
- Hematology/oncology consulted --> wants pt to stick with heme/onc at [facility] - our heme/onc service signed off
- We should try to get the CTA chest imaging from [facility] onto our system so that all providers can review
- He reportedly had fevers at home but has been afebrile since admission
- CXR from 05/17/2024 shows bilateral opacities concerning for pneumonia
- Blood cultures collected in ER (on 05/15/2024) and shows NGTD
- Sputum culture also collected 05/16/2024 and shows NGTD
- Continue with empiric antibiotics with Augmentin s/p cefepime (05/15 - 05/18/2024) + doxycycline (05/16 - 05/18/2024); UA negative for signs of UTI; urine antigens for legionella and Strep PNA both negative
- Continue to monitor his hemoptysis and if worsens then anticoagulation will need to be stopped
- Trend H&H with serial CBC and transfuse to keep Hb >7 g/dL
- Antitussants prn
- He is on Spiriva + Advair at home � continue these while hospitalized
- Maintain SpO2 88-95% with supplemental O2 and wean down high flow FiO2 as tolerated
- Continue with Xopenex TID
- Continue with home dose of prednisone --> given that his his acute respiratory failure was due to an acute PE, there is no need to raise his prednisone dose at this time
- Continue to trend serum sodium with goal 135�145; appears urine sodium is high at 160 also with high urine osmolarity at 837; this is consistent with SIADH; continue with fluid restriction otherwise his sodium may continue to decrease; stop IVF
- Dietary consulted
- Continue with Multaq
- Incentive spirometer q1hr while awake
- Replete electrolytes with K>4, Mg>2
- Maintain euglycemia with goal BG >100 and <180
- prn nebulized bronchodilators - not currently bronchospastic
- DVT ppx: heparin gtt --> therapeutic LMWH
I updated his , Ziyad, at bedside and answered all of her questions.
Pulmonary service will continue to follow along.
Outside imaging:
CTA chest 05/15/2024:
1. Acute bilateral pulmonary embolism with a small to moderate clot burden most proximally involving left upper lobe pulmonary artery. No signs of RV strain. RV/LV ratio is <1, normal.
2. New bilateral pulmonary opacities may reflect postradiation changes and/or superimposed pneumonia
3. Interval decrease in size of mediastinal mass and thoracic lymph nodes
4. Stable adrenal metastasis
Patient seen and evaluated on 05/18/2024
Total time spent today was 41 minutes for this encounter. Time includes reviewing laboratory test/imaging results, reviewing pertinent medical records, obtaining and reviewing medical history, performing an appropriate exam, ordering medications,
tests and procedures. Time also includes documentation of this encounter, coordinating patient care and communicating with other healthcare professionals. Total time does not include separately billed tests performed on this date of service.
Subjective Data
-
Date of Service:
Date of Service: May 18, 2024
Chief Complaint: Pulmonary Follow Up
Subjective:
Pt seen today at bedside. , Ziyad, at bedside, and all questions were answered. Pt looks much more awake and alert today, and in better spirits. On 8L/min midflow, SpO@ 99%, HR 83 and BP 107/67. He says he is breathing well. Denies chest
pain, HUTCHISON, abd pain, N/V/f/c.
Review of Systems
General: Other (negative unless mentioned above)
Objective Data
Data Reviewed
Vital Signs / I&O / Oxygen:
Vital Signs
Temp Pulse Resp BP Pulse Ox
98.0 F 106 20 94/55 93
05/18/24 03:26 05/18/24 09:25 05/18/24 09:25 05/18/24 06:00 05/18/24 09:25
Intake and Output
05/17/24 05/18/24 05/19/24
06:59 06:59 06:59
Intake Total 2009 720 / 720
Output Total 1350 / 1350 975 / 975
Balance 660 / 660 -255 / -255
SaO2 93
Nasal Cannula flow liters per 10
minute
Physical Exam
General: Respiratory Distress (negative), Comfortable, Chills (negative) and Sweats (negative)
HEENT: Normocephalic and Anicteric
Cardiovascular: S1-S2 and Peripheral Edema (negative)
Respiratory: Wheeze (negative), Crackles (Left middle lung field), Rhonchi (negative), Non-Labored Respirations, Stridor (negative) and Other (Diminished breath sounds in the right hemithorax)
GI: Soft, Non Distended, Non Tender and Normal Bowel Sounds
Neurology: AO x 3 and Tremors (negative)
Skin: Warm, Dry, Cyanosis (negative) and Jaundice (negative)
Labs/Micro/Reports
Lab Data
05/18/24 03:19
05/18/24 03:19
Laboratory Results
05/17/24
09:30
APTT 60.9 H
Microbiology
05/16/24 11:14 Sputum Respiratory Culture - Final
Usual Respiratory Brina
05/16/24 11:14 Sputum Gram Stain - Final
05/15/24 22:10 Blood/Venous Blood Culture - Preliminary
No Growth in 48 hours- Final report to follow
05/15/24 22:10 Blood/Venous Blood Culture - Preliminary
No Growth in 48 hours- Final report to follow
05/17/24 18:40 Urine Legionella Urinary Antigen - Final
Negative for Legionella pneumophila Serogroup 1 antigen.
A negative result does not rule out the possiblity of
Legionella infection due to other serogroups or species of
Legionella. Clinical correlation is recommended.
05/17/24 18:40 Urine Streptococcus pneumoniae Antigen (M - Final
Negative for Streptococcus pneumoniae antigen.
A negative result does not exclude infection with
Streptococcus pneumoniae. Clinical correlation is
recommended.
05/15/24 22:10 Nasal Swab Influenza Types A & B (JOSIE) - Final
Negative for Influenza A & B, NAAT
Negative results must be combined with clinical observations
and patient history.
Nucleic Acid Amplification test (NAAT)performed on the
[employer] platform.
[2024-05-18] MEDS: THERAGRAN 1 TABLET PO (10:04)
[2024-05-18] MEDS: VISBIOME 2 CAP PO (11:15)
[2024-05-18] MEDS: AUGMENTIN 200 MG/5 ML 800 MG PO ×2 (11:16→20:32)
[2024-05-18] MEDS: ProAmatine 5 MG PO ×2 (13:39→16:57)
--- NOTE | 2024-05-18 16:33 | PTCARENOTE ---
Rec'd pt this AM. at bedside. Pt very short of breath throughout the shift. frequent cough with thick sputum. RN answered all questions, provided info regarding meds etc. Pt demonstrating ability to give lovenox injection with also
observing to learn. addressed issues throughout the shift. Currently, concerned with dc. planning and homecare. requesting to talk to CM. Message forwarded to on duty pillowcase folder
--- NOTE | 2024-05-18 18:13 | CM ---
Returned vm to patient contact Ziyad Medina, making her aware that based on physicians note discharge is not anticipated for greater than 48 hrs. She was anxious that he may be discharged over the week-end and everything is not set up yet. I
reassured her that whenever he is discharged we will make sure that any services or DME that he may need is in place. Updated her on the CM that will be covering [place] this week-ed should she have any questions.
--- NOTE | 2024-05-18 18:14 | PTCARENOTE ---
Weaned pt's O2 to 5L NC. Sat 90-95%
[2024-05-19 02:48] VITALS: BP 107/58
[2024-05-19 04:19] VITALS: BP 126/95
[2024-05-19] MEDS: NSS 1000 IV (04:32)
[2024-05-19 05:09] LABS: Blood Urea Nitrogen 10 mg/dl (9-20); Carbon Dioxide 22 mmol/L (22-30); Chloride 98 mmol/L (98-107); Estimated Creatinine Clearance 89 ml/min; Glucose 88 mg/dl (70-99); Magnesium 1.8 mg/dl (1.6-2.3); Potassium 4.5 mmol/L (3.5-5.1); Sodium 129 mmol/L (135-145); eGFR > 60.00
[2024-05-19 05:12] LABS: % Basophils 0.6 % (0-2); % Eosinophils 1.3 % (0-6); % Immature Granulocytes 0.6 % (0-0.5); % Lymphocytes 3.8 % (20.5-51.1); % Monocytes 7.5 % (1.7-9.3); % Neutrophils 86.2 % (42.2-75.2); Absolute Eosinophils 0.1 10^3/uL (0-0.7); Absolute Lymphocytes 0.2 10^3/uL (1.2-3.4); Absolute Monocytes 0.4 10^3/uL (0.1-0.6); Absolute Neutrophils 4.6 10^3/uL (1.4-6.5); Hematocrit 27.9 % (39.0-52.0); Hemoglobin 9.1 g/dL (13.0-18.0); Mean Corp Hgb Conc. 32.6 g/dL (33.0-37.0); Mean Corpuscular Hgb 28.5 pg (27.0-31.0); Mean Corpuscular Volume 87.5 fL (80.0-94.0); Mean Platelet Volume 9.4 fL (7.4-10.4); Nucleated Red Blood Cells % 0 % (-); Platelet Count 478 10^3/uL (130-400); Red Blood Cell Count 3.19 10^6/uL (4.70-6.10); White Blood Cell Count 5.3 10^3/uL (4.8-10.8)
--- NOTE | 2024-05-19 05:59 | W.PN.HOSP.TC ---
Today's Communication/Plan
-
wean O2 supplementation as tolerated
Lovenox dose adjusted based on current weight
quantify hemoptysis
Nephro eval requested regarding Hyponatremia
cont abx
monitor H&H
Assessment / Plan
Assessment / Plan
Physical Exam
General: Appears Cachectic
HEENT: normocephalic atraumatic moist oral mucosa EOMI PERRLA
Pulm: Clear to auscultation b/l
Cardio: S1 S2 sinus tachy no murmurs rubs gallops
Abd: soft nontender bowel sounds present
Ext: no edema
Neuro: AOx3
63-year-old male with history of adenocarcinoma of the lung came to the ER for an abnormal CAT scan. He follows with [facility]. He was hospitalized here for atrial fibrillation early April 2024. He was discharged with Cardizem and Eliquis. Patient
developed hemoptysis and Eliquis was discontinued. Cardizem was also changed to Multaq. He underwent 10 sessions of radiation from April to May at [facility]. Not on any chemo at present. Exertional dyspnea, Outpatient CT
was done which showed PE with moderate clot burden. Patient went to [facility] for evaluation but did not want to wait in ED, therefore came to [facility].
CT PE study from [facility] reviewed by me and also report-acute bilateral pulmonary embolism with a small to moderate clot burden most approximately involving left upper lobe pulmonary artery. No signs of RV strain. RV to LV ratio less than 1. New
bilateral pulmonary opacities may reflect postradiation changes and also thrombus pneumonia. Interval decrease in size of mediastinal mass and thoracic lymph nodes. Stable adrenal metastasis.
In addition my review of images also shows COPD changes and bullae.
Echo 05/16/2024-normal LV size, wall thickness and systolic function. EF 55 to 60%. Normal RV size. RV appears hypokinetic. Small posterior pericardial effusion-unchanged
# Pulmonary embolism
Bilateral per outpatient report most prominent in the left upper lobe
Transitioned heparin drip to Lovenox 05/17/23
Lovenox education
Oxygen supplementation as needed and wean as tolerated.
Venous Dopplers lower extremity -acute nonocclusive thrombus in the mid right femoral vein
( 05/16/24) recommended to keep him on Lovenox weight based bid for discharge and not NOACS (Lovenox can be stopped any time when there is a bleed)
Pulmonary consultation appreciated
Hematology consultation noted-signed off
Noted decrease in weight since initial lovenox prescription, dose adjusted accordingly to 50 mg Q12
Quantify Hemoptysis
# Pneumonia/pneumonitis
Unclear could be radiation related infectious
Fevers at home therefore continue antibiotics-cefepime and doxycycline transitioned to Augmentin as per ID
ID eval appreciated
Patient is on prednisone as outpatient, continued
Influenza and COVID-negative
Blood cultures Neg
Sputum cultures with usual dino
# Acute respiratory failure-on 10 L O2-wean as tolerated
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
Has significant mediastinal disease and endobronchial disease including complete occlusion of the right middle lobe bronchus and partial occlusion of the right mainstem bronchus. Status post recent radiation
Follows with Dr.Roger Bojorquez [phone], Dr Coronado Spoke to Dr Bojorquez 05/16/24
Patient has primary resistant cancer. he was treated with 9LA regimen ( Nivolumab/Ipilimumab /Taxol/Carbo) and not responded. Recently received palliative radiation therapy for mediastinal disease. He is slowly recovering from Radiation induced
esophagitis. Plan is for to have goals of care discussion. Poor PS is in the way of his treatment as well now. Alimta is being considered ( In at least 3 weeks out from now)but not sure if he will benefit/tolerate.
# Atrial fibrillation-paroxysmal
Continue Multaq
Currently on anticoagulation started this admit
Echo 05/16/2024-normal LV size, wall thickness and systolic function. EF 55 to 60%. Normal RV size. RV appears hypokinetic. Small posterior pericardial effusion-unchanged
# Hyponatremia-check TSH, serum and urine osmolality studies urine sodium. C/W SIADH.
1200 ml FR.
cont midodrine with holding parameters
Nephro eval requested
# Chronic hypotension-patient was on midodrine in the past per , restarted here
# Thrombocytosis
# COPD-on Spiriva, fluticasone/salmeterol inhalers as outpatient-continue
Also on 5 mg of prednisone as outpatient-continue
# Protein calorie malnutrition-SEVERE. They have [employer] suppliment that he uses. Declined eNSURE
# Cachexia-likely secondary to metastatic malignancy which Dr Coronado reviewed with patient's . Dr. Bojorquez also finds that this is not new. TSH low however free T4 normal. This could be secondary to euthyroid sick syndrome. Normal
testosterone level. Cortisol level wnl
# Ex-smoker
# GERD-Pepcid. Decline Protonix
# History of radiation-induced esophagitis-patient denies any symptoms at present
# History of splenectomy
# DVT prophylaxis-heparin
# DNR
Dr Coronado spoke to Dr Bojorquez 05/16/24
Patient has primary resistant cancer. he was treated with 9LA regimen ( Nivolumab/Ipilimumab /Taxol/Carbo) and not responded. Recently received palliative radiation therapy for mediastinal disease. He is slowly recovering from Radiation induced
esophagitis . Plan is for to have goals of care discussion. Poor PS is in the way of his treatment as well now. Alimta is being considered (In at least 3 weeks out from now)but not sure if he will benefit/tolerate).
recommended to keep him on Lovenox weight based bid for discharge and not NOACs (Lovenox can be stopped any time when there is a bleed)
Discussed with patient and patient's [place]
I spent a total of 50 minutes with the patient or on the floor. More than 50% of this time involved counseling and coordination of care.
Anticipated Discharge: 24 - 48 hours
Subjective/Interval History
-
Date of Service: May 19, 2024
Seen and examined at bedside. Reports general malaise. Ziyad present during evaluation.
Objective Data
-
Labs:
Laboratory Results
05/19/24
04:31
WBC 5.3
Hgb 9.1 L
Hct 27.9 L
Plt Count 478 H
Sodium 129 L
Potassium 4.5
Chloride 98
Carbon Dioxide 22
BUN 10
Creatinine 0.6 L
Glucose 88
Calcium 9.0
Vital Signs:
Vital Signs
Temp Pulse Resp BP Pulse Ox
98.4 F 88 35 107/58 93
05/19/24 03:30 05/19/24 04:00 05/19/24 04:00 05/19/24 02:48 05/18/24 23:03
I&O
05/17/24 05/18/24 05/19/24
06:59 06:59 06:59
Intake Total 2009 720 / 720 1788 / 1788
Output Total 1350 / 1350 975 / 975 300 / 300
Balance 660 / 660 -255 / -255 1488 / 1488
--- NOTE | 2024-05-19 07:42 | PTCARENOTE ---
ON am rounds , ex laying in bed with pt, asking to have pain meds scheduled and asking why he coughed up blood, ex encouraged to talk to MD about both .
[2024-05-19] MEDS: AUGMENTIN 200 MG/5 ML 800 MG PO ×2 (08:00→19:44)
[2024-05-19] MEDS: XOPENEX 1.25 MG INHALANT SOLUTION INH ×3 (08:12→20:22)
[2024-05-19] MEDS: ADVAIR HFA 230/21 MCG INHALER 2 PUFF INH ×2 (08:13→20:22)
[2024-05-19] MEDS: SPIRIVA RESPIMAT 2.5 MCG 2 PUFF INH (08:13)
[2024-05-19] MEDS: ProAmatine 5 MG PO ×2 (08:25→17:46)
[2024-05-19] MEDS: PEPCID 20 MG PO (08:25)
[2024-05-19] MEDS: DELTASONE 5 MG PO (08:26)
[2024-05-19] MEDS: VISBIOME 2 CAP PO (08:27)
[2024-05-19] MEDS: MULTAQ 400 MG PO ×2 (08:27→19:37)
[2024-05-19] MEDS: THERAGRAN 1 TABLET PO (08:28)
[2024-05-19] MEDS: LOVENOX 60 MG SC (08:28)
[2024-05-19] MEDS: TYLENOL 500 MG PO ×2 (08:32→19:44)
[2024-05-19] MEDS: ROBITUSSIN AC 5 ML PO (08:33)
--- NOTE | 2024-05-19 09:03 | PTCARENOTE ---
Pt AAOx3 agitated and anxious. sits on side of bed. lungs are coarse. NSS running at 8o ml an hour. Pt on 10 l O2 Coughing up blood. When pt asked a question ex answers. Many questions encouraged both to speak with MD re their concerns.Pt gave
himself Lovenox injection so that he can maintain his independence per ex .
--- NOTE | 2024-05-19 09:43 | PTCARENOTE ---
Tech aware of bloodwork due at 1200
--- NOTE | 2024-05-19 09:56 | W.PN.PUL3 ---
Today's Communication / Plan
-
Systemic anticoagulation with eventual transition to NOAC, preferably Eliquis
Monitor his hemoptysis quantity - improving
Broad-spectrum antibiotics to complete a 7-day course assuming he continues to improve and remains afebrile for 48 hours prior to stopping antibiotics
Will need repeat imaging with CXR vs CT chest in 4-6 weeks to follow up his PNA to resolution - this imaging can likely be done at [facility]
Antitussants
Advair + Spiriva with Xopenex
Pepcid
Multaq
Up OOB as tolerated
PT/OT
Poor prognosis given his stage IV adenocarcinoma now with an acute PE, hemoptysis and physical deconditioning
He is DNR/DNI
interested in giving the patient mebendazole + ivermectin for treatment of his stage IV lung cancer. I am unable to give any recommendations regarding his medications. I also will not be ordering these medications for her to give that to him
while hospitalized. If patient ends up taking these medications then he takes on all risks and responsibilities if there are any negative complications. I told this to the as well as the patient.
Assessment
-
Assessment: 63-year-old male former tobacco smoker with past medical history of stage IV and a carcinoma of the lung following with [facility] for treatment s/p XRT (04/2024 until this month, underwent 10 sessions, also on immunotherapy, not on chemo -
Dr. Bojorquez), moderate COPD, A-fib on on Multaq and hypertension who p/w SOB. He has metastatic lung cancer that was recently diagnosed at [facility] and he does not follow with pulmonology. During recent hospitalization from 04/08 - 04/10/2024
he was found to be in new onset rapid A-fib and Eliquis was initiated by cardiology. For the last 5 to 6 days he has become more short of breath which started abruptly. He checks his pulse ox at home and it has been low especially in the morning,
and he is not on home oxygen. Also has chest discomfort with coughing which is relatively unchanged. He had outpatient CT chest at [facility] showing pulmonary emboli with moderate clot burden with no RV strain and was referred to [facility] for further
treatment but left after he grew frustrated with their care. Here in the ER, he was afebrile to 97.9 �F, pulse rate 113, breathing at 30 breaths/min, BP 119/69 and saturating 80% on room air, which improved to the mid 90s on mid flow and then he
eventually required high flow nasal cannula. Initial labs showed Hb 11.4, platelet count 520, serum sodium 129, serum chloride 92, troponin negative at <0.012, proBNP low at 218 and COVID antigen negative. He reportedly had fevers at home and
blood cultures were collected in the ER. He was given cefepime/vancomycin in the ER, also a 250 cc bolus of NS 0.9% and started on heparin gtt. Given his high oxygen requirements he was admitted to the IMU and pulmonary service consulted for
additional management/recommendations.
Chronic conditions [employer]: Tobacco use disorder, stage IV adenocarcinoma of the lung, hypertension, moderate COPD, A-fib on Multaq
Impression:
#Acute bilateral submassive PE without RV strain provoked from known stage IV lung cancer
#Lge-gide-vkojqpnmqsf hemoptysis (started last month after starting Eliquis, which is likely related to his stage IV lung cancer)
#RLE acute DVT involving mid-femoral vein (seen on LE duplex from 05/17/2024)
#Chronic anemia
#Chronic thrombocytosis likely reactive due to known malignancy
#Hypochloremic, hyponatremia likely due to reduced PO intake in setting of paraneoplastic syndrome (SIADH)
#Moderate COPD via spirometry from 04/09/2024 showing post-bronchodilator FEV1: 1.88 L / 52% predicted on chronic prednisone 5 mg daily + Spiriva/Advair
#Bullous emphysema seen on recent CT chest from 04/08/2024 predominantly in the upper lung sánchez
#Mild restrictive lung defect from PFT as above with post-bronchodilator FVC: 3.45 L / 73% predicted
#Right perihilar mass with recently diagnosed stage IV lung adenocarcinoma with progressive endobronchial spread, small�moderate pericardial effusion and bilateral adrenal masses seen on CTA chest from 04/08/2024
#Paroxysmal A-fib on Eliquis (started last month) and also on Multaq
Plan:
- Continue with systemic anticoagulation --> now on therapeutic LMWH
- Troponin was negative on admission and proBNP was relatively low at 218
- Echo done on 05/16/2024 showed normal RV size with hypokinetic RV, with no evidence of pulmonary hypertension with PASP at 25-30 mmHg. LVEF preserved at 55 to 60% and no regional WMA seen. Of note he did have a recent echo on 05/10/2024 which did
not show any evidence of RV dysfunction
- Lower extremity duplex from 05/17/2024 shows a nonocclusive thrombus in the RLE within the mid-femoral vein
- Hematology/oncology consulted --> wants pt to stick with heme/onc at [facility] - our heme/onc service signed off
- We should try to get the CTA chest imaging from [facility] onto our system so that all providers can review
- He reportedly had fevers at home but has been afebrile since admission
- CXR from 05/17/2024 shows bilateral opacities concerning for pneumonia
- Blood cultures collected in ER (on 05/15/2024) and shows NGTD
- Sputum culture also collected 05/16/2024 and shows NGTD
- Continue with empiric antibiotics with Augmentin s/p cefepime (05/15 - 05/18/2024) + doxycycline (05/16 - 05/18/2024); UA negative for signs of UTI; urine antigens for legionella and Strep PNA both negative
- Continue to monitor his hemoptysis and if worsens then anticoagulation will need to be stopped
- Trend H&H with serial CBC and transfuse to keep Hb >7 g/dL
- Antitussants prn
- He is on Spiriva + Advair at home � continue these while hospitalized
- Maintain SpO2 88-95% with supplemental O2 and wean down high flow FiO2 as tolerated
- Continue with Xopenex TID
- Continue with home dose of prednisone --> given that his his acute respiratory failure was due to an acute PE, there is no need to raise his prednisone dose at this time
- Continue to trend serum sodium with goal 135�145; his urine sodium is high at 160 also with high urine osmolarity at 837; this is consistent with SIADH; continue with fluid restriction otherwise his sodium may continue to decrease; stop IVF
- Dietary consulted
- Continue with Multaq
- Incentive spirometer q1hr while awake
- Replete electrolytes with K>4, Mg>2
- Maintain euglycemia with goal BG >100 and <180
- prn nebulized bronchodilators - not currently bronchospastic
- DVT ppx: heparin gtt --> therapeutic LMWH
has brought in mebendazole + ivermectin to give to the patient to treat his stage IV lung cancer. Given that this is not an FDA approved regimen for lung cancer, I am unable to give recommendations for these medications. I would defer any
treatment for cancer to oncology anyway. is insistent to give this to the patient and I told her that if she does give it to him it is that her and the patient's own risks and that any consequences that occur would be on them. According to
the nurse, no medications are able to be given until ordered by the physician, hence the is not able to even give these meds to the patient currently.
I updated his , Ziyad, at bedside and answered all of her questions.
Pulmonary service will continue to follow along.
Outside imaging:
CTA chest 05/15/2024:
1. Acute bilateral pulmonary embolism with a small to moderate clot burden most proximally involving left upper lobe pulmonary artery. No signs of RV strain. RV/LV ratio is <1, normal.
2. New bilateral pulmonary opacities may reflect postradiation changes and/or superimposed pneumonia
3. Interval decrease in size of mediastinal mass and thoracic lymph nodes
4. Stable adrenal metastasis
Total time spent today was 37 minutes for this encounter. Time includes reviewing laboratory test/imaging results, reviewing pertinent medical records, obtaining and reviewing medical history, performing an appropriate exam, ordering medications,
tests and procedures. Time also includes documentation of this encounter, coordinating patient care and communicating with other healthcare professionals. Total time does not include separately billed tests performed on this date of service.
Subjective Data
-
Date of Service:
Date of Service: May 19, 2024
Chief Complaint: Pulmonary Follow Up
Subjective:
Patient seen and evaluated today at bedside (late note entry). Patient says he still feels very short of breath with exertion. He is growing frustrated as a days go on. at bedside and she has multiple questions and needs frequent
reassurance. Patient's heart rate 77, BP 156, and he is saturating 94% on 10 L/min via mid flow nasal cannula. frequently questions the tapering of the patient's supplemental oxygen. The has brought in mebendazole + ivermectin as she
wants to give this to Erick after hearing that this can possibly reverse cancer on a podcast. Patient currently denies chest pain, HUTCHISON, nausea, fevers or chills.
Review of Systems
General: Other (Negative unless mentioned above)
Objective Data
Data Reviewed
Vital Signs / I&O / Oxygen:
Vital Signs
Temp Pulse Resp BP Pulse Ox
98.4 F 102 18 126/45 92
05/19/24 03:30 05/19/24 08:25 05/19/24 08:22 05/19/24 08:25 05/19/24 08:22
Intake and Output
05/18/24 05/19/24 05/20/24
06:59 06:59 06:59
Intake Total 720 / 720 3228 / 3228
Output Total 975 / 975 300 / 300 100 / 100
Balance -255 / -255 2928 / 2928 -100 / -100
SaO2 92
Nasal Cannula flow liters per 10
minute
Physical Exam
General: Respiratory Distress (negative), Comfortable, Chills (negative) and Sweats (negative)
HEENT: Normocephalic and Anicteric
Cardiovascular: S1-S2 and Peripheral Edema (negative)
Respiratory: Clear, Wheeze (negative), Crackles (negative), Rhonchi (negative), Non-Labored Respirations, Stridor (negative) and Other (Diminished breath sounds in the right hemithorax)
GI: Soft, Non Distended, Non Tender and Normal Bowel Sounds
Neurology: AO x 3 and Tremors (negative)
Skin: Warm, Dry, Cyanosis (negative) and Jaundice (negative)
Labs/Micro/Reports
Lab Data
05/19/24 04:31
Microbiology
05/15/24 22:10 Blood/Venous Blood Culture - Preliminary
No Growth in 72 hours- Final report to follow
05/15/24 22:10 Blood/Venous Blood Culture - Preliminary
No Growth in 72 hours- Final report to follow
05/16/24 11:14 Sputum Respiratory Culture - Final
Usual Respiratory Brina
05/16/24 11:14 Sputum Gram Stain - Final
05/17/24 18:40 Urine Legionella Urinary Antigen - Final
Negative for Legionella pneumophila Serogroup 1 antigen.
A negative result does not rule out the possiblity of
Legionella infection due to other serogroups or species of
Legionella. Clinical correlation is recommended.
05/17/24 18:40 Urine Streptococcus pneumoniae Antigen (M - Final
Negative for Streptococcus pneumoniae antigen.
A negative result does not exclude infection with
Streptococcus pneumoniae. Clinical correlation is
recommended.
[2024-05-19 12:18] VITALS: BP 158/120
[2024-05-19] MEDS: ProAmatine PO (12:20)
[2024-05-19 12:25] LABS: Hematocrit 31.2 % (39.0-52.0); Hemoglobin 10.4 g/dL (13.0-18.0)
--- NOTE | 2024-05-19 12:31 | PTCARENOTE ---
Pt ex co of 'the tiger being tethered too long' when asked what that meant she did not think blood pressures needed to be checked every 2 hrs during the day and why does he need a monitor?. everything explained to pt and ex . Pt was given
a sputum cup earlier to quantify hemoptysis, pt continues to spit in trash can pt reminded to use cup. Ex asks how much do we need in cup to stop using cup. again explained what we were trying to achieve. Ex upset that IV pole in on left
side of bed, because she went to get phone and almost tripped. EX stated they don't need a phone so she unplugged it from the wall and was questioning why there aren't phone jacks on the other side of the bed. I told her i had no idea
[2024-05-19 16:14] VITALS: BP 100/56
--- NOTE | 2024-05-19 18:03 | W.CON.NEPH ---
Consultation
-
Date/Time Consultation Requested: May 19, 2024 at 9:30 AM.
Date/Time Consultation Performed: May 19, 2024 at 5 PM
Requesting Provider: Dr. Rivera
Performing Provider: Dr. Erick Rocha
Reason for Consultation: hyponatremia
Medical History
-
Chief Complaint: shortness of breath
History of Present Illness:
63y M with PMH significant for Stage IV Adenocarcinoma of the lung, A-Fib and COPD who presents to ED for evaluation of abnormal imaging study. History obtained from patient and his at the bedside. Patient is currently followed at [facility] for
treatment of his lung cancer. He was last hospitalized here 04/08 - 04/10 secondary to A-fib. He was discharged at that time on Cardizem and Eliquis. He developed pema hemoptysis 2 days after discharge and the Eliquis was discontinued. status
post radiation therapy from April to May at [facility].
Patient had outpatient testing done today at [facility] including CT of the chest. This showed pulmonary emboli with moderate clot burden and no radiographic evidence of RV strain. Patient was referred to [facility] for evaluation / admission that eventually
[facility] and [facility]
nephrology consul for hyponatremia 129 toggling between 129 and 131.
He does not drink excessive amounts of water and he does not drink alcohol.
He is a similar extremity edema lower near his bilateral feet
Past Medical History
stage IV lung cancer, atrial fibrillation, COPD, hyponatremia.
Social History
Former smoker
Family History
Family History: Not Pertinent
Allergies / Home Medications
Allergy/AdvReac Type Severity Reaction Status Date / Time
No Known Allergies Allergy Verified 04/08/24 12:37
�Medication �Instructions �Recorded �Confirmed �Type
acetaminophen 500 mg tablet 500 mg PO Q6HPRN PRN mild pain 04/08/24 05/15/24 History
(Tylenol Extra Strength)
codeine 10 mg-guaifenesin 100 mg/5 5 ml PO Q4H 04/08/24 05/15/24 History
mL oral liquid
diphenhydramine 25 1 tab PO HSPRN PRN sleep 04/08/24 05/15/24 History
mg-acetaminophen 500 mg tablet
(Acetaminophen PM)
docusate sodium 100 mg capsule 100 mg PO DAILYPRN PRN constipation 04/08/24 05/15/24 History
(Colace)
famotidine 20 mg tablet (Pepcid) 20 mg PO DAILY Gastrointestinal 04/08/24 05/15/24 History
Issue
prednisone 5 mg tablet 5 mg PO DAILY Anti-Inflammatory 04/08/24 05/15/24 History
albuterol sulfate 90 mcg/actuation 2 puff inhalation R Q4HPRN PRN 04/10/24 05/15/24 Rx
aerosol inhaler SOB/cough #8.5 grams
fluticasone propionate 230 2 puff inhalation R BID #12 grams 04/10/24 05/15/24 Rx
mcg-salmeterol 21 mcg/actuation
HFA inhaler
tiotropium bromide 2.5 2 puff inhalation R DAILY #4 grams 04/10/24 05/15/24 Rx
mcg/actuation mist for inhalation
(Spiriva Respimat)
dronedarone 400 mg tablet (Multaq) 400 mg PO BID 05/15/24 05/15/24 History
Review of Systems
-
as per HPI
All other systems: Negative unless noted
Physical Exam
Vital Signs
Vital Signs
Temp Pulse Resp BP Pulse Ox
98.3 F 91 23 100/56 89
05/19/24 11:22 05/19/24 17:46 05/19/24 16:14 05/19/24 17:46 05/19/24 16:00
Lab Results
WBC 5.3 10^3/uL (4.8-10.8) 05/19/24 04:31
RBC 3.19 10^6/uL (4.70-6.10) L 05/19/24 04:31
Hgb 10.4 g/dL (13.0-18.0) L 05/19/24 12:09
Hct 31.2 % (39.0-52.0) L 05/19/24 12:09
Plt Count 478 10^3/uL (130-400) H 05/19/24 04:31
Sodium 129 mmol/L (135-145) L 05/19/24 04:31
Potassium 4.5 mmol/L (3.5-5.1) 05/19/24 04:31
Chloride 98 mmol/L (98-107) 05/19/24 04:31
Carbon Dioxide 22 mmol/L (22-30) 05/19/24 04:31
BUN 10 mg/dl (9-20) 05/19/24 04:31
Creatinine 0.6 mg/dL (0.7-1.3) L 05/19/24 04:31
eGFR > 60.00 05/19/24 04:31
Glucose 88 mg/dl (70-99) 05/19/24 04:31
Calcium 9.0 mg/dl (8.4-10.2) 05/19/24 04:31
Sjv-H-Mpdwnqlklcx Pept 218 pg/ml 05/15/24 22:10
Albumin 3.8 g/dl (3.5-5.0) 05/15/24 22:10
Physical Exam
General no acute distress
HEENT no cephalic atraumatic extraocular muscle intact no scleral icterus no JVD neck supple
lungs bilateral course breath sounds significant rhonchi
heart regular S1-S2 positive
abdomen soft nontender positive bowel sounds
extremities mild pedal edema
Neurologically nonfocal alert and oriented x 3
Skin no lesions no abrasions no petechiae
Psych normal affect no bizarre behavior
Data Reviewed
-
Radiology: Image Personally Visualized and interpreted ( bilateral pneumonia)
Labs: Labs Reviewed by me
Assessment/Plan
-
63y M with PMH significant for Stage IV Adenocarcinoma of the lung, A-Fib and COPD who presents to ED for evaluation of abnormal imaging study. History obtained from patient and his at the bedside. Patient is currently followed at [facility] for
treatment of his lung cancer. with new pulmonary embolism diagnosed status post radiation and esophagitis. Presents from [facility] for continued care.
Impression.
Hyponatremia secondary to SIADH With elevated urine sodium of 107 and lung pathology.
Stage IV lung cancer.
Atrial fibrillation.= Rate controlled
COPD/ pneumonia.= continued antibiotics/ nebulizers
Plan.
fluid restrict third 2 ounces.
Increase protein is diet to help with the solute diuresis.
Avoid NSAIDs.
Diuretics as indicated.
Discuss in detail with the patient and to the severity that is as it is very mild hyponatremia.
Is no indication for Tolvaptan at this time were 3% saline.
--- NOTE | 2024-05-19 18:46 | PTCARENOTE ---
Attempted to change sacral dressing pt states Dr Marshall looked at it and said its ok. Pt refused dressing change staed not needed
[2024-05-19] MEDS: LOVENOX 50 MG SC (19:37)
[2024-05-19 19:42] VITALS: BP 110/69
--- NOTE | 2024-05-19 20:59 | PTCARENOTE ---
Pt's ex Ziyad brought in three medications prescribed from a doctor at [place] according to pt. I explained that no medications can be given without a Dr's order and need to be administered by a nurse while in the hospital. Dr Penn is aware and
per note all questions were answered. Medication not to be given at this time without an Rx. Family instructed not to give medication and take it home with them. Discussed this with family for 90 minutes.
Pt is aaox3 and pleasant. Pt is cooperative with care and all mediations administered. Pt 94% on 8L MFNC. Pt has sputum cup at bedside which he is coughing up thick white sputum with specs of blood, interdisciplinary team is aware. Pt c/o 2/ pain
he described as aching and cramping in his right upper back. PRN Tylenol administered (see MAR). This RN confirmed with pt, ex- and pt's girlfriend, who are all at bedside, that all questions were answered. Pt resting in bed with call mosley in
reach.
[2024-05-19 22:38] VITALS: BP 113/62
--- NOTE | 2024-05-19 23:46 | PTCARENOTE ---
This RN assisted pt with hygiene and complete bed change. Protective sacral foam changed.
[2024-05-20] VITALS (13 sets, daily range): BP systolic 94–123; BP diastolic 55–98; BMI 16.8
[2024-05-20] MEDS: TYLENOL 500 MG PO ×2 (02:19→09:26)
[2024-05-20] MEDS: ROBITUSSIN AC 5 ML PO ×2 (02:19→09:24)
[2024-05-20 04:34] LABS: Hematocrit 26.4 % (39.0-52.0); Hemoglobin 8.9 g/dL (13.0-18.0); Mean Corp Hgb Conc. 33.7 g/dL (33.0-37.0); Mean Platelet Volume 9.2 fL (7.4-10.4); Platelet Count 482 10^3/uL (130-400); Red Blood Cell Count 3.07 10^6/uL (4.70-6.10); White Blood Cell Count 6.7 10^3/uL (4.8-10.8)
[2024-05-20 05:04] LABS: Blood Urea Nitrogen 8 mg/dl (9-20); Calcium 9.2 mg/dl (8.4-10.2); Carbon Dioxide 22 mmol/L (22-30); Chloride 97 mmol/L (98-107); Estimated Creatinine Clearance 98 ml/min; Glucose 89 mg/dl (70-99); Magnesium 1.9 mg/dl (1.6-2.3); Phosphorus 3.5 mg/dl (2.5-4.5); Potassium 4.7 mmol/L (3.5-5.1); Sodium 127 mmol/L (135-145); eGFR > 60.00
--- NOTE | 2024-05-20 06:24 | W.PN.HOSP.TC ---
Today's Communication/Plan
-
wean O2 supplementation as tolerated
Lovenox dose adjusted based on current weight
fluid restriction
pain control
cont abx
monitor H&H
Assessment / Plan
Assessment / Plan
Physical Exam
General: Appears Cachectic
HEENT: normocephalic atraumatic moist oral mucosa EOMI PERRLA
Pulm: Clear to auscultation b/l
Cardio: S1 S2 sinus tachy no murmurs rubs gallops
Abd: soft nontender bowel sounds present
Ext: no edema
Neuro: AOx3
63-year-old male with history of adenocarcinoma of the lung came to the ER for an abnormal CAT scan. He follows with [place]. He was hospitalized here for atrial fibrillation early April 2024. He was discharged with Cardizem and Eliquis. Patient
developed hemoptysis and Eliquis was discontinued. Cardizem was also changed to Multaq. He underwent 10 sessions of radiation from April to May at [facility]. Not on any chemo at present. Exertional dyspnea, Outpatient CT
was done which showed PE with moderate clot burden. Patient went to [place] for evaluation but did not want to wait in ED, therefore came to [place].
CT PE study from [place] reviewed by me and also report-acute bilateral pulmonary embolism with a small to moderate clot burden most approximately involving left upper lobe pulmonary artery. No signs of RV strain. RV to LV ratio less than 1. New
bilateral pulmonary opacities may reflect postradiation changes and also thrombus pneumonia. Interval decrease in size of mediastinal mass and thoracic lymph nodes. Stable adrenal metastasis.
In addition my review of images also shows COPD changes and bullae.
Echo 05/16/2024-normal LV size, wall thickness and systolic function. EF 55 to 60%. Normal RV size. RV appears hypokinetic. Small posterior pericardial effusion-unchanged
# Pulmonary embolism
Bilateral per outpatient report most prominent in the left upper lobe
Transitioned heparin drip to Lovenox 05/17/23
Lovenox education
Oxygen supplementation as needed and wean as tolerated.
Venous Dopplers lower extremity -acute nonocclusive thrombus in the mid right femoral vein
( 05/16/24) recommended to keep him on Lovenox weight based bid for discharge and not NOACS (Lovenox can be stopped any time when there is a bleed)
Pulmonary consultation appreciated
Hematology consultation noted-signed off
Noted decrease in weight since initial lovenox prescription, dose adjusted accordingly to 55 mg Q12
Quantify Hemoptysis
# Pneumonia/pneumonitis
Unclear could be radiation related infectious
Fevers at home therefore continue antibiotics-cefepime and doxycycline transitioned to Augmentin as per ID
ID eval appreciated
Patient is on prednisone as outpatient, continued
Influenza and COVID-negative
Blood cultures Neg
Sputum cultures with usual dino
# Acute respiratory failure-on 10 L O2-wean as tolerated
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
Has significant mediastinal disease and endobronchial disease including complete occlusion of the right middle lobe bronchus and partial occlusion of the right mainstem bronchus. Status post recent radiation
Follows with Dr.Roger Bojorquez [phone], Dr Coronado Spoke to Dr Bojorquez 05/16/24
Patient has primary resistant cancer. he was treated with 9LA regimen ( Nivolumab/Ipilimumab /Taxol/Carbo) and not responded. Recently received palliative radiation therapy for mediastinal disease. He is slowly recovering from Radiation induced
esophagitis. Plan is for to have goals of care discussion. Poor PS is in the way of his treatment as well now. Alimta is being considered ( In at least 3 weeks out from now)but not sure if he will benefit/tolerate.
# Atrial fibrillation-paroxysmal
Continue Multaq
Currently on anticoagulation started this admit
Echo 05/16/2024-normal LV size, wall thickness and systolic function. EF 55 to 60%. Normal RV size. RV appears hypokinetic. Small posterior pericardial effusion-unchanged
# Hyponatremia-check TSH, serum and urine osmolality studies urine sodium. C/W SIADH.
1200 ml FR.
cont midodrine with holding parameters
Nephro eval appreciated, pt declined Samsca
# Chronic hypotension-patient was on midodrine in the past per , restarted here
# Thrombocytosis
# COPD-on Spiriva, fluticasone/salmeterol inhalers as outpatient-continue
Also on 5 mg of prednisone as outpatient-continue
# Protein calorie malnutrition-SEVERE. They have [employer] suppliment that he uses. Declined eNSURE
# Cachexia-likely secondary to metastatic malignancy which Dr Coronado reviewed with patient's . Dr. Bojorquez also finds that this is not new. TSH low however free T4 normal. This could be secondary to euthyroid sick syndrome. Normal
testosterone level. Cortisol level wnl
# Ex-smoker
# GERD-Pepcid. Decline Protonix
# History of radiation-induced esophagitis-patient denies any symptoms at present
# History of splenectomy
# DVT prophylaxis-heparin
# DNR
Dr Coronado spoke to Dr Bojorquez 05/16/24
Patient has primary resistant cancer. he was treated with 9LA regimen ( Nivolumab/Ipilimumab /Taxol/Carbo) and not responded. Recently received palliative radiation therapy for mediastinal disease. He is slowly recovering from Radiation induced
esophagitis . Plan is for to have goals of care discussion. Poor PS is in the way of his treatment as well now. Alimta is being considered (In at least 3 weeks out from now)but not sure if he will benefit/tolerate).
recommended to keep him on Lovenox weight based bid for discharge and not NOACs (Lovenox can be stopped any time when there is a bleed)
Discussed with patient and patient's ex- Ziyad
I spent a total of 50 minutes with the patient or on the floor. More than 50% of this time involved counseling and coordination of care.
Anticipated Discharge: 24 - 48 hours
Subjective/Interval History
-
Date of Service: May 20, 2024
Requiring 10L this morning. Some improvement noted after coughing. Reports pain inner thigh left leg.
Objective Data
-
Labs:
Laboratory Results
05/20/24 05/20/24 05/20/24
04:12 11:00 17:00
WBC 6.7
Hgb 8.9 L Pending Pending
Hct 26.4 L Pending Pending
Plt Count 482 H
Sodium 127 L
Potassium 4.7
Chloride 97 L
Carbon Dioxide 22
BUN 8 L
Creatinine 0.6 L
Glucose 89
Calcium 9.2
05/20/24
23:00
WBC
Hgb Pending
Hct Pending
Plt Count
Sodium
Potassium
Chloride
Carbon Dioxide
BUN
Creatinine
Glucose
Calcium
Vital Signs:
Vital Signs
Temp Pulse Resp BP Pulse Ox
98.0 F 94 20 106/58 90
05/20/24 03:00 05/20/24 04:14 05/20/24 04:14 05/20/24 04:14 05/20/24 04:00
I&O
05/18/24 05/19/24 05/20/24
06:59 06:59 06:59
Intake Total 720 / 720 3228 / 3228 960 / 960
Output Total 975 / 975 300 / 300 1250 / 1250
Balance -255 / -255 2928 / 2928 -290 / -290
[2024-05-20] MEDS: XOPENEX 1.25 MG INHALANT SOLUTION INH ×3 (09:20→20:22)
[2024-05-20] MEDS: SPIRIVA RESPIMAT 2.5 MCG 2 PUFF INH (09:20)
[2024-05-20] MEDS: ADVAIR HFA 230/21 MCG INHALER 2 PUFF INH ×2 (09:21→20:22)
--- NOTE | 2024-05-20 09:23 | W.PN.PUL3 ---
Today's Communication / Plan
-
Systemic anticoagulation with eventual transition to NOAC, preferably Eliquis vs xarelto (likely xarelto given he had hemoptysis with Eliquis)
Monitor his hemoptysis quantity
Broad-spectrum antibiotics to complete a 7-day course assuming he continues to improve and remains afebrile for 48 hours prior to stopping antibiotics
Will need repeat imaging with CXR vs CT chest in 4-6 weeks to follow up his PNA to resolution - this imaging can likely be done at [facility]
Antitussants
Advair + Spiriva with Xopenex
Start prednisone taper beginning at 40 mg to see if this helps his hypoxia given his significant emphysema with COPD
Pepcid
Multaq
Up OOB as tolerated
PT/OT
Poor prognosis given his stage IV adenocarcinoma now with an acute PE, hemoptysis and physical deconditioning
He is DNR/DNI
Start trial of oxycodone at night to see if this helps his dyspnea
Assessment
-
Assessment: 63-year-old male former tobacco smoker with past medical history of stage IV and a carcinoma of the lung following with [facility] for treatment s/p XRT (04/2024 until this month, underwent 10 sessions, also on immunotherapy, not on chemo -
Dr. Bojorquez), moderate COPD, A-fib on on Multaq and hypertension who p/w SOB. He has metastatic lung cancer that was recently diagnosed at [facility] and he does not follow with pulmonology. During recent hospitalization from 04/08 - 04/10/2024
he was found to be in new onset rapid A-fib and Eliquis was initiated by cardiology. For the last 5 to 6 days he has become more short of breath which started abruptly. He checks his pulse ox at home and it has been low especially in the morning,
and he is not on home oxygen. Also has chest discomfort with coughing which is relatively unchanged. He had outpatient CT chest at [facility] showing pulmonary emboli with moderate clot burden with no RV strain and was referred to [facility] for further
treatment but left after he grew frustrated with their care. Here in the ER, he was afebrile to 97.9 �F, pulse rate 113, breathing at 30 breaths/min, BP 119/69 and saturating 80% on room air, which improved to the mid 90s on mid flow and then he
eventually required high flow nasal cannula. Initial labs showed Hb 11.4, platelet count 520, serum sodium 129, serum chloride 92, troponin negative at <0.012, proBNP low at 218 and COVID antigen negative. He reportedly had fevers at home and
blood cultures were collected in the ER. He was given cefepime/vancomycin in the ER, also a 250 cc bolus of NS 0.9% and started on heparin gtt. Given his high oxygen requirements he was admitted to the IMU and pulmonary service consulted for
additional management/recommendations.
Chronic conditions TEXTURE ARTIST: Tobacco use disorder, stage IV adenocarcinoma of the lung, hypertension, moderate COPD, A-fib on Multaq
Impression:
#Acute bilateral submassive PE without RV strain provoked from known stage IV lung cancer
#Acute respiratory failure with hypoxia due to above in the setting of COPD with bullous emphysema and physical deconditioning
#Vjk-rtpx-wjtwaesxrdz hemoptysis (started last month after starting Eliquis, which is likely related to his stage IV lung cancer)
#RLE acute DVT involving mid-femoral vein (seen on LE duplex from 05/17/2024)
#Chronic anemia
#Chronic thrombocytosis likely reactive due to known malignancy
#Hypochloremic, hyponatremia likely due to reduced PO intake in setting of paraneoplastic syndrome (SIADH)
#Moderate COPD via spirometry from 04/09/2024 showing post-bronchodilator FEV1: 1.88 L / 52% predicted on chronic prednisone 5 mg daily + Spiriva/Advair
#Bullous emphysema seen on recent CT chest from 04/08/2024 predominantly in the upper lung sánchez
#Mild restrictive lung defect from PFT as above with post-bronchodilator FVC: 3.45 L / 73% predicted
#Right perihilar mass with recently diagnosed stage IV lung adenocarcinoma with progressive endobronchial spread, small�moderate pericardial effusion and bilateral adrenal masses seen on CTA chest from 04/08/2024
#Paroxysmal A-fib on Eliquis (started last month) and also on Multaq
Plan:
- Continue with systemic anticoagulation --> now on therapeutic LMWH since 05/19
- Troponin was negative on admission and proBNP was relatively low at 218
- Echo done on 05/16/2024 showed normal RV size with hypokinetic RV, with no evidence of pulmonary hypertension with PASP at 25-30 mmHg. LVEF preserved at 55 to 60% and no regional WMA seen. Of note he did have a recent echo on 05/10/2024 which did
not show any evidence of RV dysfunction
- Lower extremity duplex from 05/17/2024 shows a nonocclusive thrombus in the RLE within the mid-femoral vein
- Hematology/oncology consulted --> wants pt to stick with heme/onc at [facility] - our heme/onc service signed off
- We should try to get the CTA chest imaging from [facility] onto our system so that all providers can review
- He reportedly had fevers at home but has been afebrile since admission
- CXR from 05/17/2024 shows bilateral opacities concerning for pneumonia
- Blood cultures collected in ER (on 05/15/2024) and shows NGTD
- Sputum culture also collected 05/16/2024 and shows NGTD
- Continue with empiric antibiotics with Augmentin s/p cefepime (05/15 - 05/18/2024) + doxycycline (05/16 - 05/18/2024); UA negative for signs of UTI; urine antigens for legionella and Strep PNA both negative
- Continue to monitor his hemoptysis and if worsens then anticoagulation will need to be stopped
- Trend H&H with serial CBC and transfuse to keep Hb >7 g/dL
- Antitussants prn
- He is on Spiriva + Advair at home � continue these while hospitalized
- Maintain SpO2 88-95% with supplemental O2 and wean down high flow FiO2 as tolerated
- Continue with Xopenex TID
- Given that he continues to be short of breath and hypoxic with variable O2 requirements despite being on anticoagulation, I will start him on a short steroid taper given his COPD with extensive bullous emphysema most affected in the upper lobes
- Also will trial dose of oxycodone at night to see if this helps his SOB - this was the patient and 's request
- Continue anti-tussants with codeine cough syrup
- Continue to trend serum sodium with goal 135�145; his urine sodium is high at 160 also with high urine osmolarity at 837; this is consistent with SIADH; continue with fluid restriction otherwise his sodium may continue to decrease; stop IVF
- Dietary consulted
- Continue with Multaq
- Incentive spirometer q1hr while awake
- Replete electrolytes with K>4, Mg>2
- Maintain euglycemia with goal BG >100 and <180
- prn nebulized bronchodilators - not currently bronchospastic
- DVT ppx: heparin gtt --> therapeutic LMWH
- Poor prognosis given his stage IV lung cancer
On 05/19/2024: His brought in mebendazole + ivermectin to give to the patient to treat his stage IV lung cancer. Given that this is not an FDA approved regimen for lung cancer, Dr. Penn is unable to give recommendations for these
medications. Dr. Penn deferred any treatment for cancer to oncology. is insistent to give this to the patient and Dr. Penn told her that if she does give it to him, that it is at her and the patient's own risks and that any
consequences that occur would be on them. According to the nurse, no medications are able to be given until ordered by the physician, hence the is not able to even give these meds to the patient currently.
Dr. Penn updated his , Ziyad, at bedside and answered all of her questions.
Pulmonary service will continue to follow along.
Outside imaging:
CTA chest 05/15/2024:
1. Acute bilateral pulmonary embolism with a small to moderate clot burden most proximally involving left upper lobe pulmonary artery. No signs of RV strain. RV/LV ratio is <1, normal.
2. New bilateral pulmonary opacities may reflect postradiation changes and/or superimposed pneumonia
3. Interval decrease in size of mediastinal mass and thoracic lymph nodes
4. Stable adrenal metastasis
Total time spent today was 41 minutes for this encounter. Time includes reviewing laboratory test/imaging results, reviewing pertinent medical records, obtaining and reviewing medical history, performing an appropriate exam, ordering medications,
tests and procedures. Time also includes documentation of this encounter, coordinating patient care and communicating with other healthcare professionals. Total time does not include separately billed tests performed on this date of service.
Subjective Data
-
Date of Service:
Date of Service: May 20, 2024
Chief Complaint: Pulmonary Follow Up
Subjective:
Patient seen earlier this afternoon (late note entry). He is resting in the chair with at bedside. Afebrile overnight. Hb this morning is 8.9 with repeat 9.8. He remains on therapeutic Lovenox which was started yesterday. Serum sodium
unfortunately is continuing to downtrend, 127 today. He says that his shortness of breath is the same and he continues to cough up bloody phlegm. Currently on 6 L/min nasal cannula. Denies chest pain, HUTCHISON, nausea, vomiting, fevers or chills.
Review of Systems
General: Other (Negative unless mentioned above)
Objective Data
Data Reviewed
Vital Signs / I&O / Oxygen:
Vital Signs
Temp Pulse Resp BP Pulse Ox
98.0 F 94 20 106/58 90
05/20/24 03:00 05/20/24 04:14 05/20/24 04:14 05/20/24 04:14 05/20/24 04:00
Intake and Output
05/19/24 05/20/24 05/21/24
06:59 06:59 06:59
Intake Total 3228 / 3228 960 / 960
Output Total 300 / 300 1250 / 1250
Balance 2928 / 2928 -290 / -290
SaO2 90
Nasal Cannula flow liters per 10
minute
Physical Exam
General: Respiratory Distress (negative), Comfortable, Chills (negative) and Sweats (negative)
HEENT: Normocephalic and Anicteric
Cardiovascular: S1-S2 and Peripheral Edema (negative)
Respiratory: Wheeze (negative), Crackles (Bibasilar), Rhonchi (negative), Non-Labored Respirations, Stridor (negative) and Other (Diminished breath sounds in the right hemithorax)
GI: Soft, Non Distended, Non Tender and Normal Bowel Sounds
Neurology: AO x 3 and Tremors (negative)
Skin: Warm, Dry, Cyanosis (negative) and Jaundice (negative)
Labs/Micro/Reports
Lab Data
05/20/24 23:00
05/20/24 04:12
Microbiology
05/15/24 22:10 Blood/Venous Blood Culture - Preliminary
No Growth in 4 days- Final report to follow
05/15/24 22:10 Blood/Venous Blood Culture - Preliminary
No Growth in 4 days- Final report to follow
05/16/24 11:14 Sputum Respiratory Culture - Final
Usual Respiratory Brina
05/16/24 11:14 Sputum Gram Stain - Final
05/17/24 18:40 Urine Legionella Urinary Antigen - Final
Negative for Legionella pneumophila Serogroup 1 antigen.
A negative result does not rule out the possiblity of
Legionella infection due to other serogroups or species of
Legionella. Clinical correlation is recommended.
05/17/24 18:40 Urine Streptococcus pneumoniae Antigen (M - Final
Negative for Streptococcus pneumoniae antigen.
A negative result does not exclude infection with
Streptococcus pneumoniae. Clinical correlation is
recommended.
[2024-05-20] MEDS: PEPCID 20 MG PO (09:27)
[2024-05-20] MEDS: DELTASONE 5 MG PO (09:27)
[2024-05-20] MEDS: ProAmatine 5 MG PO ×3 (09:27→18:25)
[2024-05-20] MEDS: MULTAQ 400 MG PO ×2 (09:27→19:59)
[2024-05-20] MEDS: VISBIOME 2 CAP PO (09:28)
[2024-05-20] MEDS: THERAGRAN 1 TABLET PO (09:28)
[2024-05-20] MEDS: LOVENOX 55 MG SC ×2 (09:32→19:59)
[2024-05-20] MEDS: AUGMENTIN 200 MG/5 ML 800 MG PO ×2 (09:58→19:59)
--- NOTE | 2024-05-20 11:45 | PTCARENOTE ---
Patient is fatigued today, sitting up on side of bed with partner Ziyad. Patients pulse ox 88%-92 on 10 liters mid flow at this time. Plan of care discussed with patient, partner and multiple medical team members. Nurse discussed medication regimen
and patient educated about Lovenox dose and self administering.
[2024-05-20 13:52] LABS: Hematocrit 29.1 % (39.0-52.0); Hemoglobin 9.8 g/dL (13.0-18.0)
--- NOTE | 2024-05-20 15:12 | W.PN.NEPH.PH ---
Today's Communication / Plan
-
offered samsca but patient refused
I will sign off as I do not have any other suggestions other than fluid restricting and increasing a protein.
Assessment/Plan
-
63y M with PMH significant for Stage IV Adenocarcinoma of the lung, A-Fib and COPD who presents to ED for evaluation of abnormal imaging study. History obtained from patient and his at the bedside. Patient is currently followed at [place] for
treatment of his lung cancer. with new pulmonary embolism diagnosed status post radiation and esophagitis. Presents from [facility] for continued care.
Impression.
Hyponatremia secondary to SIADH With elevated urine sodium of 107 and lung pathology.
Stage IV lung cancer.
Atrial fibrillation.= Rate controlled
COPD/ pneumonia.= continued antibiotics/ nebulizers
Plan.
fluid restrict third 2 ounces.
Increase protein is diet to help with the solute diuresis.
Avoid NSAIDs.
Diuretics as indicated.
Discuss in detail with the patient and to the severity that is as it is very mild hyponatremia.
Is no indication for Tolvaptan at this time were 3% saline.
current sodium 127. I offered samsca but patient refuses.
Nothing more to offer at this time if the sodium worsens then would suggest samsca but patient does not want to take this medication
I will sign off please call if needed
-
-
Date of Service: May 20, 2024
Labs
-
Labs:
WBC 6.7 10^3/uL (4.8-10.8) 05/20/24 04:12
RBC 3.07 10^6/uL (4.70-6.10) L 05/20/24 04:12
Hgb Cancelled 05/20/24 23:00
Hct Cancelled 05/20/24 23:00
Plt Count 482 10^3/uL (130-400) H 05/20/24 04:12
Sodium 127 mmol/L (135-145) L 05/20/24 04:12
Potassium 4.7 mmol/L (3.5-5.1) 05/20/24 04:12
Chloride 97 mmol/L (98-107) L 05/20/24 04:12
Carbon Dioxide 22 mmol/L (22-30) 05/20/24 04:12
BUN 8 mg/dl (9-20) L 05/20/24 04:12
Creatinine 0.6 mg/dL (0.7-1.3) L 05/20/24 04:12
eGFR > 60.00 05/20/24 04:12
Glucose 89 mg/dl (70-99) 05/20/24 04:12
Calcium 9.2 mg/dl (8.4-10.2) 05/20/24 04:12
Phosphorus 3.5 mg/dl (2.5-4.5) 05/20/24 04:12
Yma-T-Rgbjnfvkgyg Pept 218 pg/ml 05/15/24 22:10
Albumin 3.8 g/dl (3.5-5.0) 05/15/24 22:10
Physical Exam
-
Vital Signs:
Vital Signs
Temp Pulse Resp BP Pulse Ox
98.5 F 88 15 94/59 92
05/20/24 07:35 05/20/24 13:20 05/20/24 13:20 05/20/24 12:20 05/20/24 13:20
[2024-05-20] MEDS: LIDOCAINE 4% PATCH 1 PATCH TOPICAL (15:48)
--- NOTE | 2024-05-20 15:56 | PTCARENOTE ---
Patient is now sitting up in a chair, pulse ox 92% on 6 liters midflow. Scant amount of blood tingued sputum today. Hgb improved.
[2024-05-20] MEDS: ROXICODONE 2.5 MG PO (23:45)
[2024-05-21] VITALS (13 sets, daily range): BP systolic 88–108; BP diastolic 55–90; BMI 16.6
--- NOTE | 2024-05-21 03:24 | PTCARENOTE ---
Pt continues to report scant amount of blood in sputum, but refuses to spit into sample cup to be monitored. Continues on 6L midflow with SaO2 89-93%. Denies new complaints at this time. ordered 5mg oxycodone HS, pt requested to take 2.5mg
instead of 5mg. contacted via TT and changed order to 2.5mg. Pt agreeable to take dose as ordered. Call mosley within reach.
[2024-05-21 06:21] LABS: Hematocrit 27.6 % (39.0-52.0); Hemoglobin 9.1 g/dL (13.0-18.0); Mean Corpuscular Hgb 28.3 pg (27.0-31.0); Mean Platelet Volume 9.2 fL (7.4-10.4); Platelet Count 498 10^3/uL (130-400); Red Blood Cell Count 3.21 10^6/uL (4.70-6.10); Red Cell Dist. Width 15.8 % (11.5-14.5); White Blood Cell Count 5.7 10^3/uL (4.8-10.8)
--- NOTE | 2024-05-21 06:22 | W.PN.HOSP.TC ---
Today's Communication/Plan
-
wean O2 supplementation as tolerated
Cont therapeutic Lovenox
fluid restriction
pain control, Bengay-like cream ordered, cont bedtime oxycodone 2.5 mg HS patient appears to tolerate well
steroids as per Pulm
cont abx
monitor H&H
palliative eval per patient/family request
Assessment / Plan
Assessment / Plan
Physical Exam
General: Appears Cachectic
HEENT: normocephalic atraumatic moist oral mucosa EOMI PERRLA
Pulm: Clear to auscultation b/l
Cardio: S1 S2 sinus tachy no murmurs rubs gallops
Abd: soft nontender bowel sounds present
Ext: edema lower ext's feet b/l
Neuro: AOx3
63-year-old male with history of adenocarcinoma of the lung came to the ER for an abnormal CAT scan. He follows with [facility]. He was hospitalized here for atrial fibrillation early April 2024. He was discharged with Cardizem and Eliquis. Patient
developed hemoptysis and Eliquis was discontinued. Cardizem was also changed to Multaq. He underwent 10 sessions of radiation from April to May at [facility]. Not on any chemo at present. Exertional dyspnea, Outpatient CT
was done which showed PE with moderate clot burden. Patient went to [facility] for evaluation but did not want to wait in ED, therefore came to [facility].
CT PE study from [facility] reviewed by me and also report-acute bilateral pulmonary embolism with a small to moderate clot burden most approximately involving left upper lobe pulmonary artery. No signs of RV strain. RV to LV ratio less than 1. New
bilateral pulmonary opacities may reflect postradiation changes and also thrombus pneumonia. Interval decrease in size of mediastinal mass and thoracic lymph nodes. Stable adrenal metastasis.
In addition my review of images also shows COPD changes and bullae.
Echo 05/16/2024-normal LV size, wall thickness and systolic function. EF 55 to 60%. Normal RV size. RV appears hypokinetic. Small posterior pericardial effusion-unchanged
# Pulmonary embolism
Bilateral per outpatient report most prominent in the left upper lobe
Transitioned heparin drip to Lovenox 05/17/23
Lovenox education
Oxygen supplementation as needed and wean as tolerated.
Venous Dopplers lower extremity -acute nonocclusive thrombus in the mid right femoral vein
( 05/16/24) recommended to keep him on Lovenox weight based bid for discharge and not NOACS (Lovenox can be stopped any time when there is a bleed)
Pulmonary consultation appreciated
Hematology consultation noted-signed off
Noted decrease in weight since initial lovenox prescription, dose adjusted accordingly to 55 mg Q12
# Pneumonia/pneumonitis
Unclear could be radiation related infectious
Fevers at home therefore continue antibiotics-cefepime and doxycycline transitioned to Augmentin as per ID
ID eval appreciated
Patient is on prednisone 5 mg daily as outpatient, increased to 40 mg daily as per pulm
Influenza and COVID-negative
Blood cultures Neg
Sputum cultures with usual dino
# Acute respiratory failure-on 6 L O2-wean as tolerated
oxycodone 2.5 mg HS bedtime to assist with nocturnal dyspnea/pain/insomnia- hold if sedated
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
Has significant mediastinal disease and endobronchial disease including complete occlusion of the right middle lobe bronchus and partial occlusion of the right mainstem bronchus. Status post recent radiation
Follows with Dr.Roger Bojorquez [phone], Dr Coronado Spoke to Dr Bojorquez 05/16/24
Patient has primary resistant cancer. he was treated with 9LA regimen ( Nivolumab/Ipilimumab /Taxol/Carbo) and not responded. Recently received palliative radiation therapy for mediastinal disease. He is slowly recovering from Radiation induced
esophagitis. Plan is for to have goals of care discussion. Poor PS is in the way of his treatment as well now. Alimta is being considered ( In at least 3 weeks out from now)but not sure if he will benefit/tolerate.
Inpatient Palliative Eval requested as per patient/family request
# Atrial fibrillation-paroxysmal
Continue Multaq
Currently on anticoagulation started this admit
Echo 05/16/2024-normal LV size, wall thickness and systolic function. EF 55 to 60%. Normal RV size. RV appears hypokinetic. Small posterior pericardial effusion-unchanged
# Hyponatremia-check TSH, serum and urine osmolality studies urine sodium. C/W SIADH.
1200 ml FR.
cont midodrine with holding parameters
Nephro eval appreciated, pt declined Samsca
# Chronic hypotension-patient was on midodrine in the past per , restarted here
# Thrombocytosis
# COPD-on Spiriva, fluticasone/salmeterol inhalers as outpatient-continue
Also on 5 mg of prednisone as outpatient-continue
# Protein calorie malnutrition-SEVERE. They have Bantam Live supplement that he uses. Declined ensure
# Cachexia-likely secondary to metastatic malignancy which Dr Coronado reviewed with patient's . Dr. Bojorquez also finds that this is not new. TSH low however free T4 normal. This could be secondary to euthyroid sick syndrome. Normal
testosterone level. Cortisol level wnl
# Ex-smoker
# GERD-Pepcid. Decline Protonix
# History of radiation-induced esophagitis-patient denies any symptoms at present
# History of splenectomy
# DVT prophylaxis-heparin
# DNR
Dr Coronado spoke to Dr Bojorquez 05/16/24
Patient has primary resistant cancer. he was treated with 9LA regimen ( Nivolumab/Ipilimumab /Taxol/Carbo) and not responded. Recently received palliative radiation therapy for mediastinal disease. He is slowly recovering from Radiation induced
esophagitis . Plan is for to have goals of care discussion. Poor PS is in the way of his treatment as well now. Alimta is being considered (In at least 3 weeks out from now)but not sure if he will benefit/tolerate).
recommended to keep him on Lovenox weight based bid for discharge and not NOACs (Lovenox can be stopped any time when there is a bleed)
Discussed with patient, patient's girlfriend Ruba, and patient's ex- [place] at bedside
I spent a total of 50 minutes with the patient or on the floor. More than 50% of this time involved counseling and coordination of care.
Anticipated Discharge: 24 - 48 hours
Subjective/Interval History
-
Date of Service: May 21, 2024
Objective Data
-
Labs:
Laboratory Results
05/21/24
05:57
WBC 5.7
Hgb 9.1 L
Hct 27.6 L
Plt Count 498 H
Sodium Pending
Potassium Pending
Chloride Pending
Carbon Dioxide Pending
BUN Pending
Creatinine Pending
Glucose Pending
Calcium Pending
Vital Signs:
Vital Signs
Temp Pulse Resp BP Pulse Ox
99.6 F 95 15 90/60 89
05/21/24 04:20 05/21/24 06:00 05/21/24 06:00 05/21/24 04:00 05/21/24 06:00
I&O
05/19/24 05/20/24 05/21/24
06:59 06:59 06:59
Intake Total 3228 / 3228 960 / 960 680 / 680
Output Total 300 / 300 1250 / 1250 575 / 575
Balance 2928 / 2928 -290 / -290 105 / 105
[2024-05-21 06:35] LABS: Blood Urea Nitrogen 9 mg/dl (9-20); Carbon Dioxide 26 mmol/L (22-30); Chloride 94 mmol/L (98-107); Estimated Creatinine Clearance 97 ml/min; Glucose 89 mg/dl (70-99); Magnesium 1.9 mg/dl (1.6-2.3); Phosphorus 3.5 mg/dl (2.5-4.5); Potassium 4.8 mmol/L (3.5-5.1); Sodium 127 mmol/L (135-145); eGFR > 60.00
[2024-05-21] MEDS: XOPENEX 1.25 MG INHALANT SOLUTION INH ×3 (08:14→19:41)
[2024-05-21] MEDS: ADVAIR HFA 230/21 MCG INHALER 2 PUFF INH ×2 (08:14→19:41)
[2024-05-21] MEDS: SPIRIVA RESPIMAT 2.5 MCG 2 PUFF INH (08:15)
--- NOTE | 2024-05-21 08:49 | W.PN.PUL3 ---
Today's Communication / Plan
-
Remains on 6L NC, will likely need O2 set up at home, but this need is too high
On abx per ID
Continue inhalers, prednisone taper
Dietary consult for cachexia
longterm prognosis poor, was agreeable to [facility] consult but will defer to team
She has OP [facility] team that she follows with
Assessment
-
63-year-old male former tobacco smoker with past medical history of stage IV and a carcinoma of the lung following with [facility] for treatment s/p XRT (04/2024 until this month, underwent 10 sessions, also on immunotherapy, not on chemo - Dr. Bojorquez),
moderate COPD, A-fib on on Multaq and hypertension who p/w SOB. He has metastatic lung cancer that was recently diagnosed at [facility] and he does not follow with pulmonology. During recent hospitalization from 04/08 - 04/10/2024 he was found
to be in new onset rapid A-fib and Eliquis was initiated by cardiology. For the last 5 to 6 days he has become more short of breath which started abruptly. He checks his pulse ox at home and it has been low especially in the morning, and he is not
on home oxygen. Also has chest discomfort with coughing which is relatively unchanged. He had outpatient CT chest at [facility] showing pulmonary emboli with moderate clot burden with no RV strain and was referred to [facility] for further treatment but left
after he grew frustrated with their care. Here in the ER, he was afebrile to 97.9 �F, pulse rate 113, breathing at 30 breaths/min, BP 119/69 and saturating 80% on room air, which improved to the mid 90s on mid flow and then he eventually required
high flow nasal cannula. Initial labs showed Hb 11.4, platelet count 520, serum sodium 129, serum chloride 92, troponin negative at <0.012, proBNP low at 218 and COVID antigen negative. He reportedly had fevers at home and blood cultures were
collected in the ER. He was given cefepime/vancomycin in the ER, also a 250 cc bolus of NS 0.9% and started on heparin gtt. Given his high oxygen requirements he was admitted to the IMU and pulmonary service consulted for additional
management/recommendations.
Impression:
#Acute bilateral submassive PE without RV strain provoked from known stage IV lung cancer
#Acute respiratory failure with hypoxia due to above in the setting of COPD with bullous emphysema and physical deconditioning
#Xdp-ldok-uclkzokmolm hemoptysis (started last month after starting Eliquis, which is likely related to his stage IV lung cancer)
#RLE acute DVT involving mid-femoral vein (seen on LE duplex from 05/17/2024)
#Chronic anemia
#Chronic thrombocytosis likely reactive due to known malignancy
#Hypochloremic, hyponatremia likely due to reduced PO intake in setting of paraneoplastic syndrome (SIADH)
#Moderate COPD via spirometry from 04/09/2024 showing post-bronchodilator FEV1: 1.88 L / 52% predicted on chronic prednisone 5 mg daily + Spiriva/Advair
#Bullous emphysema seen on recent CT chest from 04/08/2024 predominantly in the upper lung sánchez
#Mild restrictive lung defect from PFT as above with post-bronchodilator FVC: 3.45 L / 73% predicted
#Right perihilar mass with recently diagnosed stage IV lung adenocarcinoma with progressive endobronchial spread, small�moderate pericardial effusion and bilateral adrenal masses seen on CTA chest from 04/08/2024
#Paroxysmal A-fib on Eliquis (started last month) and also on Multaq
Cachexia
Conditions present prior to admission
Stage IV adenocarcinoma of lung with metastases to chest, abdomen and pelvis
Hypertension
Former smoker, 50 pack years, quit 01/22/2024
Former ETOH abuse (last drink 07/20/2016)
GERD
Post-splenectomy
Recurrent right inguinal hernia
Mixed hyperlipidemia
Plan:
Remains on 6L NC, satting 90%
No home history of O2 use as of yet
Will likely need home arrangements
Continue with systemic anticoagulation --> now on therapeutic LMWH since 1/18
Troponin was negative on admission and proBNP was relatively low at 218
Echo done on 05/16/2024 showed normal RV size with hypokinetic RV, with no evidence of pulmonary hypertension with PASP at 25-30 mmHg. LVEF preserved at 55 to 60% and no regional WMA seen. Of note he did have a recent echo on 05/10/2024 which did not
show any evidence of RV dysfunction
Lower extremity duplex from 05/17/2024 shows a nonocclusive thrombus in the RLE within the mid-femoral vein
Hematology/oncology consulted --> wants pt to stick with heme/onc at [facility] - our heme/onc service signed off
He reportedly had fevers at home but has been afebrile since admission
CXR from 05/17/2024 shows bilateral opacities concerning for pneumonia
Blood cultures collected in ER (on 05/15/2024) and shows NGTD
Sputum culture also collected 05/16/2024 and shows NGTD
Started on empiric antibiotics with Augmentin s/p cefepime (05/15 - 05/18/2024) + doxycycline (05/16 - 05/18/2024)
UA negative for signs of UTI; urine antigens for legionella and Strep PNA both negative
Would stop abx at this time, ID following
Continue to monitor his hemoptysis and if worsens then anticoagulation will need to be stopped
- Trend H&H with serial CBC and transfuse to keep Hb >7 g/dL
- Antitussants prn
COPD/emphysema history
- He is on Spiriva + Advair at home � continue these while hospitalized
- Maintain SpO2 88-95% with supplemental O2 and wean down high flow FiO2 as tolerated
- Continue with Xopenex TID
- Given that he continues to be short of breath and hypoxic with variable O2 requirements despite being on anticoagulation, I will start him on a short steroid taper given his COPD with extensive bullous emphysema most affected in the upper lobes
- Also will trial dose of oxycodone at night to see if this helps his SOB - this was the patient and 's request
Continue to trend serum sodium with goal 135�145; his urine sodium is high at 160 also with high urine osmolarity at 837; this is consistent with SIADH; continue with fluid restriction otherwise his sodium may continue to decrease; stop IVF
Severe protein calorie malnutrition noted
Dietary consulted
Afib history
Continue with Multaq
- Incentive spirometer q1hr while awake
- Replete electrolytes with K>4, Mg>2
- Maintain euglycemia with goal BG >100 and <180
- prn nebulized bronchodilators - not currently bronchospastic
- DVT ppx: heparin gtt --> therapeutic LMWH
- Poor prognosis given his stage IV lung cancer
On 05/19/2024: His brought in mebendazole + ivermectin to give to the patient to treat his stage IV lung cancer. Given that this is not an FDA approved regimen for lung cancer, Dr. Penn is unable to give recommendations for these
medications. Dr. Penn deferred any treatment for cancer to oncology. is insistent to give this to the patient and Dr. Penn told her that if she does give it to him, that it is at her and the patient's own risks and that any
consequences that occur would be on them. According to the nurse, no medications are able to be given until ordered by the physician, hence the is not able to even give these meds to the patient currently.
Dr. Penn updated his , Ziyad, at bedside and answered all of her questions.
Pulmonary service will continue to follow along.
Outside imaging:
CTA chest 05/15/2024:
1. Acute bilateral pulmonary embolism with a small to moderate clot burden most proximally involving left upper lobe pulmonary artery. No signs of RV strain. RV/LV ratio is <1, normal.
2. New bilateral pulmonary opacities may reflect postradiation changes and/or superimposed pneumonia
3. Interval decrease in size of mediastinal mass and thoracic lymph nodes
4. Stable adrenal metastasis
ECHO 05/16/24- Normal left ventricular size, wall thickness and systolic function. No regional wall motion abnormalities are seen. LV ejection fraction is 55-60% by visual assessment. Diastolic function not assessed. Normal right ventricular size.
Right ventricle appears hypokinetic but is not objectively measured. Normal atria. No abnormal valve abnormalities. No evidence of pulmonary hypertension.
Small, posterior pericardial effusion.
-----
Total time spent today was 51 minutes for this encounter. Time includes reviewing laboratory test/imaging results, reviewing pertinent medical records, obtaining and reviewing medical history, performing an appropriate exam, ordering medications,
tests and procedures. Time also includes documentation of this encounter, coordinating patient care and communicating with other healthcare professionals. Total time does not include separately billed tests performed on this date of service.
Subjective Data
-
Date of Service:
Date of Service: May 21, 2024
Chief Complaint: Pulmonary Follow Up
Subjective:
Remains on 6L NC, 90% sat
More cachectic appearing, weak
at bedside
Objective Data
Data Reviewed
Vital Signs / I&O / Oxygen:
Vital Signs
Temp Pulse Resp BP Pulse Ox
99.6 F 93 22 90/60 90
05/21/24 04:20 05/21/24 08:19 05/21/24 08:19 05/21/24 04:00 05/21/24 08:19
Intake and Output
05/20/24 05/21/24 05/22/24
06:59 06:59 06:59
Intake Total 960 / 960 680 / 680
Output Total 1250 / 1250 575 / 575
Balance -290 / -290 105 / 105
SaO2 90
Nasal Cannula flow liters per 10
minute
Physical Exam
General: Respiratory Distress (negative), Comfortable, Chills (negative), Sweats (negative), Poor Appetite and Other (cachectic)
HEENT: Normocephalic, Anicteric and Moist Mucous Membranes
Cardiovascular: S1-S2, Regular Rhythm and Peripheral Edema (negative)
Respiratory: Clear, Wheeze (negative), Rhonchi (negative), Non-Labored Respirations, Stridor (negative) and Other (overall decreased, poor air movement)
GI: Soft, Non Distended, Non Tender and Normal Bowel Sounds
Neurology: AO x 3 and Tremors (negative)
Skin: Warm, Dry, Cyanosis (negative) and Jaundice (negative)
Labs/Micro/Reports
Lab Data
05/21/24 05:57
05/21/24 05:57
Microbiology
05/15/24 22:10 Blood/Venous Blood Culture - Final
No Growth - Final Report
05/15/24 22:10 Blood/Venous Blood Culture - Final
No Growth - Final Report
05/16/24 11:14 Sputum Respiratory Culture - Final
Usual Respiratory Brina
05/16/24 11:14 Sputum Gram Stain - Final
[2024-05-21] MEDS: LIDOCAINE 4% PATCH TOPICAL (09:25)
[2024-05-21] MEDS: AUGMENTIN 200 MG/5 ML 800 MG PO ×2 (09:26→20:11)
[2024-05-21] MEDS: PEPCID 20 MG PO (09:29)
[2024-05-21] MEDS: DELTASONE 40 MG PO (09:30)
[2024-05-21] MEDS: VISBIOME 2 CAP PO (09:32)
[2024-05-21] MEDS: MULTAQ 400 MG PO ×2 (09:32→20:11)
[2024-05-21] MEDS: ProAmatine 5 MG PO ×3 (09:32→17:39)
[2024-05-21] MEDS: THERAGRAN 1 TABLET PO (09:33)
[2024-05-21] MEDS: LOVENOX 55 MG SC ×2 (09:33→20:12)
--- NOTE | 2024-05-21 11:34 | CM ---
CM following re: discharge planning.
Reviewed pt's chart, met with p[t and pt's spouse Ziyad at bedside. CM has a long meeting/conversation with pt and his spouse. Pt is aware of his current health condition and pt stated he was told he has 4 months to live. Emotional support offered
and provided. Pt's spouse stated that pt is known to [facility] [place] [facility] .e care. [facility] and his Oncology team is from [facility]. Pt and pt's spouse made it very clear they do not want hospice and they are looking for any options
of treatment.
Pt requires 6L midflow NC of O2, continue supportive care. Pt has no home Oxygen.
Both pt and his spouse requested following DME at discharge: home Oxygen, wheelchair or walker, hospital bed and those DME will be ordered closer to discharge.
Pt's spouse stated that pt will go to their house at [address] [place] [address] and she prepares a room to the pt
A referral to [facility] [place] [facility] care made. Pt's spouse stated that pt has an appointment with [facility].
D/c plan: home when medically stable with [facility] [place] [facility], [facility], necessary DME and family support.
CM will follow with discharge plan updates as hospitalization progresses
--- NOTE | 2024-05-21 14:08 | W.CON.PAL ---
Consultation
-
Date/Time Consultation Requested: 05/21/24
Date/Time Consultation Performed: 05/21/24
Requesting Provider: Dr. Rivera
Performing Provider: Emi Onofre
Reason for Consult: Goals of Care Discussion
Primary Diagnosis: metastatic lung cancer
Reason for Admission
Illness Course/HPI
63 year old M with PMH of stage 4 adenocarcinoma of the lung (follows at [facility]), A-Fib and COPD admitted for eval after abnormal CT chest showing PE with moderate clot burden. Currently on immunotherapy. S/p 10 sessions of radiation to lung at [facility]
April-May.
Of note, recent hospitalization 04/08 - 04/10 for A-fib, discharged at that time on Cardizem and Eliquis. He developed hemoptysis 2 days after discharge and the Eliquis was discontinued. Cardizem was changed to Multaq.
Upon admission, was hypoxic to the 80s on room air. Required high flow 02 to remain in the 90s. Has been weaning, now on 6L. Initially being treated for possible PNA, cultures NGTD and afebrile so discontinued. Will need home 02 set up. Now on
lovenox and steroids. Also trial of oxycodone nightly for dyspnea, but discontinued.
Family requesting patient be treated with ivermectin and mebendazole, unable to do this while in the hospital. Per chart review, he was treated with Nivolumab/Ipilimumab /Taxol/Carbo and did not respond so had palliative radiation therapy for
mediastinal disease c/b esophagitis. Plan is for his oncologist to have goals of care discussion at next appointment as patient has poor performance status.
Consult for GOC.
Pain & Symptom Assessment
[place] Symptom Scale 0=none, 10=worst
Pain: 0
Objective Data
-
Objective Data:
Vital Signs
Temp Pulse Resp BP Pulse Ox
98.8 F 94 24 104/55 91
05/21/24 07:16 05/21/24 13:18 05/21/24 13:18 05/21/24 12:44 05/21/24 13:44
Laboratory Results
05/21/24 05:57
05/21/24 05:57
PT 14.9 Sec (11.4-14.6) H 05/16/24 05:18
INR 1.14 05/16/24 05:18
APTT 60.9 Sec (23.4-35.0) H 05/17/24 09:30
Total Protein 7.0 g/dl (6.3-8.2) 05/15/24 22:10
Albumin 3.8 g/dl (3.5-5.0) 05/15/24 22:10
Free T4 1.53 ng/dl (0.78-2.19) 05/16/24 05:18
Urine Color Yellow 05/17/24 18:40
Urine Clarity Clear (Clear) 05/17/24 18:40
Urine pH 5.0 (5.0-9.0) 05/17/24 18:40
Ur Specific [place] 1.020 (<1.030) 05/17/24 18:40
Urine Ketones Negative (Negative) 05/17/24 18:40
Urine Bilirubin Negative (Negative) 05/17/24 18:40
Palliative Performance Scale
Palliative Performance Scale:
PPS Level Ambulation Activity & Evidence of Disease Self Care Intake Conscious Level
100% Full Normal Activity & Work; Full Intake Full
No Evidence of Disease
90% Full Normal Activity & Work; Full Normal Full
Some Evidence of Disease
80% Full Normal Activity with Effort Full Normal or Full
Some Evidence of Disease Reduced
70% Reduced Unable Normal Job/Work Full Normal or Full
Significant Disease Reduced
60% Reduced Unable Hobby/Housework Occasional Normal or Full or Confusion
Significant Disease Assistance Reduced
50% Mainly Sit/Lie Unable to do Any Work Considerable Normal or Full or Confusion
Extensive Disease Assistance Req'd Reduced
40% Mainly in Bed Unable to do Most Activity Mainly Assistance Normal or Full or Drowsy;
Extensive Disease Reduced +/- Confusion
30% Totally Bed Unable to do Any Activity Total Care Normal or Full or Drowsy;
Bound Extensive Disease Reduced +/- Confusion
20% Totally Bed Bound Unable to do Any Activity Total Care Minimal to Full or Drowsy;
Extensive Disease Sips +/- Confusion
10% Totally Bed Bound Unable to do Any Activity Total Care Mouth Care Drowsy or Coma;
Extensive Disease Only +/- Confusion
0%
PPS Score Level:
Palliative Performance Score Response
Palliative Performance Score Response: 60%
Physical Exam
-
General: Appears Chronically Ill
HEENT: Normocephalic
Respiratory: Rhonchi
Cardiac: Regular Rhythm
GI: Soft
Musculoskeletal: Normal Gait & Station
Skin: Warm
Neuro: AO x 3
Assessment / Plan
-
Assessment/Plan:
63 year old M with metastatic lung cancer to adrenals admitted with PE, hypoxia.
- met with patient, Ziyad ( but still legally ) and significant other Ruba. Patient and frustrated about ER wait at [facility] as well as feeling like they arent getting any answers from oncology about his cancer, next steps,
prognosis and also frustrated about his medical set backs. They are optimistic that he will be a candidate for further radiation treatment (proton beam) and want to pursue this if so. They have an appointment for evaluation for this. They also want
to do non traditional treatment of his cancer including ivermectin. They feel as though he responded well to the recent radiation therapy as there was some shrinkage of his tumor, and he can also breathe better and is coughing less and feel they
need to give more time to see the full effects of this.
- we discussed hospice and how it differs from palliative - they are not quite ready for this yet but know that if he worsens, or is not a candidate for treatment that this is likely the next step.
- oxycodone was helpful for him and says he slept well last night - would continue this at nighttime.
- he follows Dr. Alejandro of palliative care at [facility] - they plan to continue to follow him. Agree with this as they can better coordinate with his oncology team at [facility] for further [facility] discussions. I did give his our outpatient information if
anything changes.
Care Reviewed
Data Reviewed
Chest X ray: Image Reviewed
Echocardiogram: Image Reviewed
Radiology procedure: Image Reviewed
Medical Tests: I reviewed
Reviewed with: Patient, Family and Physician
--- NOTE | 2024-05-21 18:49 | PTCARENOTE ---
Patient denying pain when asked today. Sitting in chair an on side of bed. Sputum mostly light yellow/ hunt today. Oxygen at 6 liters all shift, pulse ox 96% at this time.
[2024-05-21] MEDS: ROXICODONE 2.5 MG PO (22:59)
[2024-05-22] VITALS (9 sets, daily range): BP systolic 89–114; BP diastolic 52–67; BMI 16.5
--- NOTE | 2024-05-22 03:03 | PTCARENOTE ---
POC continues. Pt denies pain at this time, but c/o occasional muscle soreness in L thigh, refuses ordered bengay cream. Encouragement and comfort provided to pt and spouse at bedside. O2 need continues, will titrate as able, see worklist. VSS. Call
mosley within reach. Pt able to make needs known.
[2024-05-22 05:57] LABS: Hematocrit 27.2 % (39.0-52.0); Hemoglobin 9.1 g/dL (13.0-18.0); Mean Corp Hgb Conc. 33.5 g/dL (33.0-37.0); Mean Corpuscular Hgb 28.9 pg (27.0-31.0); Mean Corpuscular Volume 86.3 fL (80.0-94.0); Mean Platelet Volume 9.4 fL (7.4-10.4); Platelet Count 525 10^3/uL (130-400); Red Blood Cell Count 3.15 10^6/uL (4.70-6.10); Red Cell Dist. Width 15.9 % (11.5-14.5); White Blood Cell Count 5.9 10^3/uL (4.8-10.8)
[2024-05-22 06:20] LABS: Blood Urea Nitrogen 9 mg/dl (9-20); Carbon Dioxide 25 mmol/L (22-30); Chloride 96 mmol/L (98-107); Estimated Creatinine Clearance 96 ml/min; Glucose 116 mg/dl (70-99); Phosphorus 3.4 mg/dl (2.5-4.5); Potassium 4.5 mmol/L (3.5-5.1); Sodium 132 mmol/L (135-145); eGFR > 60.00
--- NOTE | 2024-05-22 07:10 | W.PN.UPDATE ---
Update Note
Progress Note Update
RN was stuck with needle while getting pt blood.
Attempted to get consent to HIV lab but pt was extremely irritable for waking him up. I left consent at beside for review. Will attempt to have exposure labs run from already drawn blood in lab. PT is upset to have to be stuck again.
--- NOTE | 2024-05-22 07:26 | W.PN.HOSP.TC ---
Today's Communication/Plan
-
wean O2 supplementation as tolerated
Cont therapeutic Lovenox
fluid restriction
cont bedtime oxycodone 2.5 mg HS patient appears to tolerate well
cont prednisone
last day abx
discharge planning
Assessment / Plan
Assessment / Plan
Physical Exam
General: Appears Cachectic
HEENT: normocephalic atraumatic moist oral mucosa EOMI PERRLA
Pulm: Clear to auscultation b/l
Cardio: S1 S2 sinus tachy no murmurs rubs gallops
Abd: soft nontender bowel sounds present
Ext: edema lower ext's feet b/l
Neuro: AOx3
63-year-old male with history of adenocarcinoma of the lung came to the ER for an abnormal CAT scan. He follows with [facility]. He was hospitalized here for atrial fibrillation early April 2024. He was discharged with Cardizem and Eliquis. Patient
developed hemoptysis and Eliquis was discontinued. Cardizem was also changed to Multaq. He underwent 10 sessions of radiation from April to May at [facility]. Not on any chemo at present. Exertional dyspnea, Outpatient CT
was done which showed PE with moderate clot burden. Patient went to [facility] for evaluation but did not want to wait in ED, therefore came to [facility].
CT PE study from [facility] reviewed by me and also report-acute bilateral pulmonary embolism with a small to moderate clot burden most approximately involving left upper lobe pulmonary artery. No signs of RV strain. RV to LV ratio less than 1. New
bilateral pulmonary opacities may reflect postradiation changes and also thrombus pneumonia. Interval decrease in size of mediastinal mass and thoracic lymph nodes. Stable adrenal metastasis.
In addition my review of images also shows COPD changes and bullae.
Echo 05/16/2024-normal LV size, wall thickness and systolic function. EF 55 to 60%. Normal RV size. RV appears hypokinetic. Small posterior pericardial effusion-unchanged
# Pulmonary embolism
Bilateral per outpatient report most prominent in the left upper lobe
Transitioned heparin drip to Lovenox 05/17/23
Lovenox education
Oxygen supplementation as needed and wean as tolerated.
Venous Dopplers lower extremity -acute nonocclusive thrombus in the mid right femoral vein
( 05/16/24) recommended to keep him on Lovenox weight based bid for discharge and not NOACS (Lovenox can be stopped any time when there is a bleed)
Pulmonary consultation appreciated
Hematology consultation noted-signed off
Noted decrease in weight since initial lovenox prescription, dose adjusted accordingly to 55 mg Q12
# Pneumonia/pneumonitis
Unclear could be radiation related infectious
Fevers at home therefore continue antibiotics-cefepime and doxycycline transitioned to Augmentin 05/22/24 last day abx as per ID
ID eval appreciated
Patient is on prednisone 5 mg daily as outpatient, increased to 40 mg daily as per pulm
Influenza and COVID-negative
Blood cultures Neg
Sputum cultures with usual dino
# Acute respiratory failure-on 6 L O2-wean as tolerated
oxycodone 2.5 mg HS bedtime to assist with nocturnal dyspnea/pain/insomnia- hold if sedated
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
Has significant mediastinal disease and endobronchial disease including complete occlusion of the right middle lobe bronchus and partial occlusion of the right mainstem bronchus. Status post recent radiation
Follows with Dr.Roger oBjorquez [phone], Dr Coronado Spoke to Dr Bojorquez 05/16/24
Patient has primary resistant cancer. he was treated with 9LA regimen ( Nivolumab/Ipilimumab /Taxol/Carbo) and not responded. Recently received palliative radiation therapy for mediastinal disease. He is slowly recovering from Radiation induced
esophagitis. Plan is for to have goals of care discussion. Poor PS is in the way of his treatment as well now. Alimta is being considered ( In at least 3 weeks out from now)but not sure if he will benefit/tolerate.
Inpatient Palliative Eval appreciated
# Atrial fibrillation-paroxysmal
Continue Multaq
Currently on anticoagulation started this admit
Echo 05/16/2024-normal LV size, wall thickness and systolic function. EF 55 to 60%. Normal RV size. RV appears hypokinetic. Small posterior pericardial effusion-unchanged
# Hyponatremia-check TSH, serum and urine osmolality studies urine sodium. C/W SIADH.
1200 ml FR.
cont midodrine with holding parameters
Nephro eval appreciated, pt declined Samsca
Na since improved
# Chronic hypotension-patient was on midodrine in the past per , restarted here
midodrine titrated up to 10 mg TID
# Thrombocytosis
# COPD-on Spiriva, fluticasone/salmeterol inhalers as outpatient-continue
Also on 5 mg of prednisone as outpatient- 40 mg daily prednisone as above to taper back to home dose
# Protein calorie malnutrition-SEVERE. They have Ku6 supplement that he uses. Declined ensure
# Cachexia-likely secondary to metastatic malignancy which Dr Coronado reviewed with patient's . Dr. Bojorquez also finds that this is not new. TSH low however free T4 normal. This could be secondary to euthyroid sick syndrome. Normal
testosterone level. Cortisol level wnl
# Ex-smoker
# GERD-Pepcid. Decline Protonix
# History of radiation-induced esophagitis-patient denies any symptoms at present
# History of splenectomy
# DVT prophylaxis-heparin
# DNR
Patient is in need of oxygen at 3 liters/minute via nasal cannula continuously due to pulse oximetry of 86% on room air at rest. Oxygen will help to improve hypoxemia. Patient is mobile within the home. DuoNeb therapy has been tried and is
ineffective in treating hypoxemia related symptoms. Oxygen is needed to improve symptoms.
Hospital bed- pt requires frequent turning and repositioning and has a respiratory condition requiring head of bed to elevated at least 39 degrees
Wheelchair- pt requires WC within their home to complete their daily activities
Dr Coronado spoke to Dr Bojorquez 05/16/24
Patient has primary resistant cancer. he was treated with 9LA regimen ( Nivolumab/Ipilimumab /Taxol/Carbo) and not responded. Recently received palliative radiation therapy for mediastinal disease. He is slowly recovering from Radiation induced
esophagitis . Plan is for to have goals of care discussion. Poor PS is in the way of his treatment as well now. Alimta is being considered (In at least 3 weeks out from now)but not sure if he will benefit/tolerate).
recommended to keep him on Lovenox weight based bid for discharge and not NOACs (Lovenox can be stopped any time when there is a bleed)
Discussed with patient and patient's Diamond at bedside
I spent a total of 50 minutes with the patient or on the floor. More than 50% of this time involved counseling and coordination of care.
Anticipated Discharge: Within 24 hours
Subjective/Interval History
-
Date of Service: May 22, 2024
Weaning down on oxygen supplementation. Though productive cough sputum persists, hemoptysis since improved, scant blood noted in sputums if at all.
Objective Data
-
Labs:
Laboratory Results
05/22/24
05:04
WBC 5.9
Hgb 9.1 L
Hct 27.2 L
Plt Count 525 H
Sodium 132 L
Potassium 4.5
Chloride 96 L
Carbon Dioxide 25
BUN 9
Creatinine 0.5 L
Glucose 116 H
Calcium 9.0
Vital Signs:
Vital Signs
Temp Pulse Resp BP Pulse Ox
97.7 F 62 20 89/56 94
05/22/24 04:44 05/22/24 06:00 05/22/24 06:00 05/22/24 05:01 05/22/24 06:00
I&O
05/21/24 05/22/24 05/23/24
06:59 06:59 06:59
Intake Total 680 / 680 575 / 575
Output Total 575 / 575 1275 / 1275
Balance 105 / 105 -700 / -700
[2024-05-22] MEDS: ADVAIR HFA 230/21 MCG INHALER 2 PUFF INH ×2 (08:07→19:22)
[2024-05-22] MEDS: XOPENEX 1.25 MG INHALANT SOLUTION INH ×3 (08:07→19:22)
[2024-05-22] MEDS: SPIRIVA RESPIMAT 2.5 MCG 2 PUFF INH (08:07)
[2024-05-22] MEDS: ProAmatine PO (08:17)
[2024-05-22] MEDS: VISBIOME 2 CAP PO (08:27)
[2024-05-22] MEDS: THERAGRAN 1 TABLET PO (08:28)
[2024-05-22] MEDS: AUGMENTIN 200 MG/5 ML 800 MG PO ×2 (08:28→19:58)
[2024-05-22] MEDS: MULTAQ 400 MG PO ×2 (08:28→19:58)
[2024-05-22] MEDS: PEPCID 20 MG PO (08:28)
[2024-05-22] MEDS: LOVENOX 55 MG SC ×2 (08:28→19:58)
[2024-05-22] MEDS: DELTASONE 40 MG PO (08:28)
--- NOTE | 2024-05-22 09:17 | W.PN.PUL3 ---
Today's Communication / Plan
-
Weaned O2, 2L at rest 3L w/ exertion--can set up at home
Prednisone taper
PO Abx course per ID
PT/OT TARA berry encouraged
OP FU at [facility] already arranged
Discharge planning per team, agreeable but need bed set up at home
CM aware
Assessment
-
63-year-old male former tobacco smoker with past medical history of stage IV and a carcinoma of the lung following with [facility] for treatment s/p XRT (04/2024 until this month, underwent 10 sessions, also on immunotherapy, not on chemo - Dr. Bojorquez),
moderate COPD, A-fib on on Multaq and hypertension who p/w SOB. He has metastatic lung cancer that was recently diagnosed at [facility] and he does not follow with pulmonology. During recent hospitalization from 04/08 - 04/10/2024 he was found
to be in new onset rapid A-fib and Eliquis was initiated by cardiology. For the last 5 to 6 days he has become more short of breath which started abruptly. He checks his pulse ox at home and it has been low especially in the morning, and he is not
on home oxygen. Also has chest discomfort with coughing which is relatively unchanged. He had outpatient CT chest at [facility] showing pulmonary emboli with moderate clot burden with no RV strain and was referred to [facility] for further treatment but left
after he grew frustrated with their care. Here in the ER, he was afebrile to 97.9 �F, pulse rate 113, breathing at 30 breaths/min, BP 119/69 and saturating 80% on room air, which improved to the mid 90s on mid flow and then he eventually required
high flow nasal cannula. Initial labs showed Hb 11.4, platelet count 520, serum sodium 129, serum chloride 92, troponin negative at <0.012, proBNP low at 218 and COVID antigen negative. He reportedly had fevers at home and blood cultures were
collected in the ER. He was given cefepime/vancomycin in the ER, also a 250 cc bolus of NS 0.9% and started on heparin gtt. Given his high oxygen requirements he was admitted to the IMU and pulmonary service consulted for additional
management/recommendations.
Impression:
#Acute bilateral submassive PE without RV strain provoked from known stage IV lung cancer
#Acute respiratory failure with hypoxia due to above in the setting of COPD with bullous emphysema and physical deconditioning
#Lyr-amws-wsjtbbesmym hemoptysis (started last month after starting Eliquis, which is likely related to his stage IV lung cancer)
#RLE acute DVT involving mid-femoral vein (seen on LE duplex from 05/17/2024)
#Chronic anemia
#Chronic thrombocytosis likely reactive due to known malignancy
#Hypochloremic, hyponatremia likely due to reduced PO intake in setting of paraneoplastic syndrome (SIADH)
#Moderate COPD via spirometry from 04/09/2024 showing post-bronchodilator FEV1: 1.88 L / 52% predicted on chronic prednisone 5 mg daily + Spiriva/Advair
#Bullous emphysema seen on recent CT chest from 04/08/2024 predominantly in the upper lung sánchez
#Mild restrictive lung defect from PFT as above with post-bronchodilator FVC: 3.45 L / 73% predicted
#Right perihilar mass with recently diagnosed stage IV lung adenocarcinoma with progressive endobronchial spread, small�moderate pericardial effusion and bilateral adrenal masses seen on CTA chest from 04/08/2024
#Paroxysmal A-fib on Eliquis (started last month) and also on Multaq
Cachexia
Conditions present prior to admission
Stage IV adenocarcinoma of lung with metastases to chest, abdomen and pelvis
Hypertension
Former smoker, 50 pack years, quit 01/22/2024
Former ETOH abuse (last drink 07/20/2016)
GERD
Post-splenectomy
Recurrent right inguinal hernia
Mixed hyperlipidemia
Plan:
Remains on 2L NC, satting >90%, 3L needed with exertion
No home history of O2 use as of yet
Will need home arrangements
Continue with systemic anticoagulation --> now on therapeutic LMWH since 05/19
Troponin was negative on admission and proBNP was relatively low at 218
Echo done on 05/16/2024 showed normal RV size with hypokinetic RV, with no evidence of pulmonary hypertension with PASP at 25-30 mmHg. LVEF preserved at 55 to 60% and no regional WMA seen. Of note he did have a recent echo on 05/10/2024 which did not
show any evidence of RV dysfunction
Lower extremity duplex from 05/17/2024 shows a nonocclusive thrombus in the RLE within the mid-femoral vein
Continue lovenox SQ
He reportedly had fevers at home but has been afebrile since admission
CXR from 05/17/2024 shows bilateral opacities concerning for pneumonia
Blood cultures collected in ER (on 05/15/2024) and shows NGTD
Sputum culture also collected 05/16/2024 and shows NGTD
Started on empiric antibiotics with Augmentin s/p cefepime (05/15 - 05/18/2024) + doxycycline (05/16 - 05/18/2024)
UA negative for signs of UTI; urine antigens for legionella and Strep PNA both negative
On PO course per ID
Continue to monitor his hemoptysis and if worsens then anticoagulation will need to be stopped
- Trend H&H with serial CBC and transfuse to keep Hb >7 g/dL
- Antitussants prn
COPD/emphysema history
He is on Spiriva + Advair at home � continue these while hospitalized
Maintain SpO2 88-95% with supplemental O2 and wean down high flow FiO2 as tolerated
Continue with Xopenex TID
Given that he continues to be short of breath and hypoxic with variable O2 requirements despite being on anticoagulation, I will start him on a short steroid taper given his COPD with extensive bullous emphysema most affected in the upper lobes
Prednisone taper at discharge
Continue to trend serum sodium with goal 135�145; his urine sodium is high at 160 also with high urine osmolarity at 837; this is consistent with SIADH; continue with fluid restriction otherwise his sodium may continue to decrease; stop IVF
Severe protein calorie malnutrition noted
Dietary consulted
Afib history
Continue with Multaq
Family Discussions
On 05/19/2024: His brought in mebendazole + ivermectin to give to the patient to treat his stage IV lung cancer. Given that this is not an FDA approved regimen for lung cancer, Dr. Penn is unable to give recommendations for these
medications. Dr. Penn deferred any treatment for cancer to oncology. is insistent to give this to the patient and Dr. Penn told her that if she does give it to him, that it is at her and the patient's own risks and that any
consequences that occur would be on them. According to the nurse, no medications are able to be given until ordered by the physician, hence the is not able to even give these meds to the patient currently.
Dr. Penn updated his , Ziyad, at bedside and answered all of her questions.
Dr Barajas updated at bedside daily
Discharge planning per team
Outside imaging:
CTA chest 05/15/2024:
1. Acute bilateral pulmonary embolism with a small to moderate clot burden most proximally involving left upper lobe pulmonary artery. No signs of RV strain. RV/LV ratio is <1, normal.
2. New bilateral pulmonary opacities may reflect postradiation changes and/or superimposed pneumonia
3. Interval decrease in size of mediastinal mass and thoracic lymph nodes
4. Stable adrenal metastasis
ECHO 05/16/24- Normal left ventricular size, wall thickness and systolic function. No regional wall motion abnormalities are seen. LV ejection fraction is 55-60% by visual assessment. Diastolic function not assessed. Normal right ventricular size.
Right ventricle appears hypokinetic but is not objectively measured. Normal atria. No abnormal valve abnormalities. No evidence of pulmonary hypertension.
Small, posterior pericardial effusion.
-----
Total time spent today was 51 minutes for this encounter. Time includes reviewing laboratory test/imaging results, reviewing pertinent medical records, obtaining and reviewing medical history, performing an appropriate exam, ordering medications,
tests and procedures. Time also includes documentation of this encounter, coordinating patient care and communicating with other healthcare professionals. Total time does not include separately billed tests performed on this date of service.
Subjective Data
-
Date of Service:
Date of Service: May 22, 2024
Chief Complaint: Pulmonary Follow Up
Subjective:
Weaned to 2L at rest, 3L with exertion
at bedside
No new complaints
Objective Data
Data Reviewed
Vital Signs / I&O / Oxygen:
Vital Signs
Temp Pulse Resp BP Pulse Ox
97.6 F 68 18 89/56 92
05/22/24 07:15 05/22/24 08:11 05/22/24 08:11 05/22/24 05:01 05/22/24 08:11
Intake and Output
05/21/24 05/22/24 05/23/24
06:59 06:59 06:59
Intake Total 680 / 680 575 / 575
Output Total 575 / 575 1275 / 1275 175 / 175
Balance 105 / 105 -700 / -700 -175 / -175
SaO2 92
Nasal Cannula flow liters per 6
minute
Physical Exam
General: Respiratory Distress (negative), Comfortable, Chills (negative), Sweats (negative), Poor Appetite and Other (cachectic)
HEENT: Normocephalic, Anicteric and Moist Mucous Membranes
Cardiovascular: S1-S2, Regular Rhythm and Peripheral Edema (negative)
Respiratory: Clear, Wheeze (negative), Rhonchi (negative), Non-Labored Respirations, Stridor (negative) and Other (overall decreased, poor air movement)
GI: Soft, Non Distended, Non Tender and Normal Bowel Sounds
Neurology: AO x 3 and Tremors (negative)
Skin: Warm, Dry, Cyanosis (negative) and Jaundice (negative)
Labs/Micro/Reports
Lab Data
05/22/24 05:04
05/22/24 05:04
Microbiology
05/15/24 22:10 Blood/Venous Blood Culture - Final
No Growth - Final Report
05/15/24 22:10 Blood/Venous Blood Culture - Final
No Growth - Final Report
--- NOTE | 2024-05-22 10:00 | PTCARENOTE ---
Patient tolerating 4L NC. Will continue to wean as tolerates. NSR with PACs on monitor. VSS. Patient making needs known. States appetite slightly improved today. Care plan discussed with patient and Ziyad at bedside. Will closely monitor.
[2024-05-22 10:44] LABS: Hepatitis B Surface Antigen Negative (Negative)
[2024-05-22 11:02] LABS: Hepatitis C Antibody Negative (Negative)
--- NOTE | 2024-05-22 11:17 | RESPNOTE ---
home O2 eval:
patient desated to 86% RA after being off O2 for 3 minutes.
O2 re-applied at 1L, after 2 min SpO2 only 88%, O2 increased to 2L.
after 1 min, SpO2 90% on 2L.
patient ambulated about 80 feet on 2L and desatted to 86%, O2 increased to 3L.
patient recovered to 90% on 3L after 2 min.
patient ambulated an additional 80 feet on 3L, SpO2 90-91%.
mild to moderate SOB with continued exertion.
[2024-05-22 11:22] LABS: HIV Combo Negative (Negative)
[2024-05-22] MEDS: ProAmatine 10 MG PO ×2 (12:16→17:30)
--- NOTE | 2024-05-22 16:12 | CM ---
CM reviewed pt with Dr Rivera- ADC tomorrow
Bedside meeting with pt and spouse to review dc planning
Plan for home with [facility] and [facility]
Referral faxed to [facility] for wheelchair, hospital bed and home O2
Pt and spouse will purchase walker and commode
Awaiting physician note from Dr Rivera
Once obtained, will need to fax physician note to [employer] delivered portable tank bedside today
Plan for delivery of DMEs tomorrow
Update to [facility] via [facility]- requested fax #
Discharge Disposition- home with [facility], [facility] and [employer] O2, wheelchair and hospital bed
--- NOTE | 2024-05-22 16:36 | W.PN.UPDATE ---
Update Note
Progress Note Update
Patient is in need of oxygen at 3 liters/minute via nasal cannula continuously due to pulse oximetry of 86% on room air at rest. Oxygen will help to improve hypoxemia. Patient is mobile within the home. DuoNeb therapy has been tried and is
ineffective in treating hypoxemia related symptoms. Oxygen is needed to improve symptoms.
Hospital bed- pt requires frequent turning and repositioning and has a respiratory condition requiring head of bed to elevated at least 39 degrees
Wheelchair- pt requires WC within their home to complete their daily activities
--- NOTE | 2024-05-22 21:37 | PTCARENOTE ---
assumed care of patient. pt is AAOx3, able to make needs known. flat affect at times. SOB on exertion, 91% 3L. chronic cough noted, sputum more hunt/yellow and less bloody. pt given teaching and education on lovenox shot tonight. pt was able to give
self shot without issues. using urinal at bedside. pt also asking for davide stockings to stay on, so teds remain on per patient request. care ongoing.
[2024-05-22] MEDS: ROXICODONE 2.5 MG PO (23:14)
[2024-05-23] VITALS (9 sets, daily range): BP systolic 95–120; BP diastolic 58–68; PULSE 74; O2SAT 94; BMI 16.3
--- NOTE | 2024-05-23 02:08 | DOWNTIME ---
There was a [employer] Deputy Juvenile Officer Downtime on 05/23/2024 from 0100 to 05/23/2023 at 0205 . Downtime documentation of patient's care, including medication administrations, has been reconciled in the electronic record per guidelines. Refer to the
patient's paper chart under the miscellaneous tab to see printed paper medication records and downtime forms.
--- NOTE | 2024-05-23 02:26 | PTCARENOTE ---
pt significant other came out to nurses station asking why patients oxygen had been bumped up to 4L. explained to her that patients oxygen dropped to 87% on 2L at rest for a few minutes. significant other not happy, stating he needs to be lower.
oxygen was 95% on 4L, pt oxygen then decreased to 3L NC. significant other asking why it is not at 2L. educated on need to taper down and stated I will decrease his oxygen if his sat's are stable. pt has been 87-93% on 3L at rest at this time.
--- NOTE | 2024-05-23 06:30 | PTCARENOTE ---
pt's oxygen has been 87-93% throughout the night on 3L NC.
--- NOTE | 2024-05-23 07:06 | W.PN.HOSP.TC ---
Today's Communication/Plan
-
likely discharge later today after patient's zoom meeting with outpatient [facility] care provider 1PM
Home set up, hospital bed, home oxygen 4L, wheelchair, home services
Assessment / Plan
Assessment / Plan
Physical Exam
General: Appears Cachectic
HEENT: normocephalic atraumatic moist oral mucosa EOMI PERRLA
Pulm: Clear to auscultation b/l
Cardio: S1 S2 sinus tachy no murmurs rubs gallops
Abd: soft nontender bowel sounds present
Ext: edema lower ext's feet b/l
Neuro: AOx3
63-year-old male with history of adenocarcinoma of the lung came to the ER for an abnormal CAT scan. He follows with [facility]. He was hospitalized here for atrial fibrillation early April 2024. He was discharged with Cardizem and Eliquis. Patient
developed hemoptysis and Eliquis was discontinued. Cardizem was also changed to Multaq. He underwent 10 sessions of radiation from April to May at [facility]. Not on any chemo at present. Exertional dyspnea, Outpatient CT
was done which showed PE with moderate clot burden. Patient went to [facility] for evaluation but did not want to wait in ED, therefore came to [place].
CT PE study from [facility] reviewed by me and also report-acute bilateral pulmonary embolism with a small to moderate clot burden most approximately involving left upper lobe pulmonary artery. No signs of RV strain. RV to LV ratio less than 1. New
bilateral pulmonary opacities may reflect postradiation changes and also thrombus pneumonia. Interval decrease in size of mediastinal mass and thoracic lymph nodes. Stable adrenal metastasis.
In addition my review of images also shows COPD changes and bullae.
Echo 05/16/2024-normal LV size, wall thickness and systolic function. EF 55 to 60%. Normal RV size. RV appears hypokinetic. Small posterior pericardial effusion-unchanged
# Pulmonary embolism
Bilateral per outpatient report most prominent in the left upper lobe
Transitioned heparin drip to Lovenox 05/17/23
Lovenox education
Oxygen supplementation as needed and wean as tolerated.
Venous Dopplers lower extremity -acute nonocclusive thrombus in the mid right femoral vein
( 05/16/24) recommended to keep him on Lovenox weight based bid for discharge and not NOACS (Lovenox can be stopped any time when there is a bleed)
Pulmonary consultation appreciated
Hematology consultation noted-signed off
Noted decrease in weight since initial lovenox prescription, dose adjusted accordingly to 55 mg Q12
# Pneumonia/pneumonitis
Unclear could be radiation related infectious
Fevers at home therefore continue antibiotics-cefepime and doxycycline transitioned to Augmentin 05/22/24 last day abx as per ID
ID eval appreciated
Patient is on prednisone 5 mg daily as outpatient, increased to 40 mg daily as per pulm
Influenza and COVID-negative
Blood cultures Neg
Sputum cultures with usual dino
# Acute respiratory failure-on 6 L O2-wean as tolerated
oxycodone 2.5 mg HS bedtime to assist with nocturnal dyspnea/pain/insomnia- hold if sedated
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
Has significant mediastinal disease and endobronchial disease including complete occlusion of the right middle lobe bronchus and partial occlusion of the right mainstem bronchus. Status post recent radiation
Follows with Dr.Roger Bojorquez [phone], Dr Coronado Spoke to Dr Bojorquez 05/16/24
Patient has primary resistant cancer. he was treated with 9LA regimen ( Nivolumab/Ipilimumab /Taxol/Carbo) and not responded. Recently received palliative radiation therapy for mediastinal disease. He is slowly recovering from Radiation induced
esophagitis. Plan is for to have goals of care discussion. Poor PS is in the way of his treatment as well now. Alimta is being considered ( In at least 3 weeks out from now)but not sure if he will benefit/tolerate.
Inpatient Palliative Eval appreciated
# Atrial fibrillation-paroxysmal
Continue Multaq
Currently on anticoagulation started this admit
Echo 05/16/2024-normal LV size, wall thickness and systolic function. EF 55 to 60%. Normal RV size. RV appears hypokinetic. Small posterior pericardial effusion-unchanged
# Hyponatremia-check TSH, serum and urine osmolality studies urine sodium. C/W SIADH.
1200 ml FR.
cont midodrine with holding parameters
Nephro eval appreciated, pt declined Samsca
Na since improved
# Chronic hypotension-patient was on midodrine in the past per , restarted here
midodrine titrated up to 10 mg TID
# Thrombocytosis
# COPD-on Spiriva, fluticasone/salmeterol inhalers as outpatient-continue
Also on 5 mg of prednisone as outpatient- 40 mg daily prednisone as above to taper back to home dose
# Protein calorie malnutrition-SEVERE. They have [employer] supplement that he uses. Declined ensure
# Cachexia-likely secondary to metastatic malignancy which Dr Coronado reviewed with patient's . Dr. Bojorquez also finds that this is not new. TSH low however free T4 normal. This could be secondary to euthyroid sick syndrome. Normal
testosterone level. Cortisol level wnl
# Ex-smoker
# GERD-Pepcid. Decline Protonix
# History of radiation-induced esophagitis-patient denies any symptoms at present
# History of splenectomy
# DVT prophylaxis-heparin
# DNR
Patient is in need of oxygen at 4 liters/minute via nasal cannula continuously due to pulse oximetry of 86% on room air at rest. Oxygen will help to improve hypoxemia. Patient is mobile within the home. DuoNeb therapy has been tried and is
ineffective in treating hypoxemia related symptoms. Oxygen is needed to improve symptoms.
Hospital bed- pt requires frequent turning and repositioning and has a respiratory condition requiring head of bed to elevated at least 39 degrees
Wheelchair- pt requires WC within their home to complete their daily activities
Dr Coronado spoke to Dr Bojorquez 05/16/24
Patient has primary resistant cancer. he was treated with 9LA regimen ( Nivolumab/Ipilimumab /Taxol/Carbo) and not responded. Recently received palliative radiation therapy for mediastinal disease. He is slowly recovering from Radiation induced
esophagitis . Plan is for to have goals of care discussion. Poor PS is in the way of his treatment as well now. Alimta is being considered (In at least 3 weeks out from now)but not sure if he will benefit/tolerate).
recommended to keep him on Lovenox weight based bid for discharge and not NOACs (Lovenox can be stopped any time when there is a bleed)
Medically stable for discharge home with home services and outpatient follow up recommendations.
Discussed with patient and patient's [place] at bedside
Total Time Preparing Discharge __50 minutes including examination of the patient, summary of the hospital stay, instructions for continuing care to all relevant caregivers; and preparation of discharge records, prescriptions, and referral
forms if necessary.
Anticipated Discharge: Today
Subjective/Interval History
-
Date of Service: May 23, 2024
no acute distress. Noted oxygen requirement overnight 4L. Home oxygen should be set up accordingly. Otherwise no new acute issues.
Objective Data
-
Vital Signs:
Vital Signs
Temp Pulse Resp BP Pulse Ox
98.0 F 65 26 119/66 87
05/23/24 03:00 05/23/24 06:00 05/23/24 06:00 05/23/24 06:00 05/23/24 06:31
I&O
05/22/24 05/23/24 05/24/24
06:59 06:59 06:59
Intake Total 575 / 575
Output Total 1275 / 1275 325 / 325
Balance -700 / -700 -325 / -325
[2024-05-23] MEDS: XOPENEX 1.25 MG INHALANT SOLUTION INH ×2 (08:36→14:55)
[2024-05-23] MEDS: SPIRIVA RESPIMAT 2.5 MCG 2 PUFF INH (08:36)
[2024-05-23] MEDS: ADVAIR HFA 230/21 MCG INHALER 2 PUFF INH (08:37)
--- NOTE | 2024-05-23 08:41 | W.PN.PUL3 ---
Today's Communication / Plan
-
Prednisone taper, will see [facility] on 05/30 per
Home O2 set up
Continue inhalers per OP regiment
Prolonged discussion with , all questions answered
Discharge planning per team
We will sign off at this time--please call with questions
Assessment
-
63-year-old male former tobacco smoker with past medical history of stage IV and a carcinoma of the lung following with [facility] for treatment s/p XRT (04/2024 until this month, underwent 10 sessions, also on immunotherapy, not on chemo - Dr. Bojorquez),
moderate COPD, A-fib on on Multaq and hypertension who p/w SOB. He has metastatic lung cancer that was recently diagnosed at [facility] and he does not follow with pulmonology. During recent hospitalization from 04/08 - 04/10/2024 he was found
to be in new onset rapid A-fib and Eliquis was initiated by cardiology. For the last 5 to 6 days he has become more short of breath which started abruptly. He checks his pulse ox at home and it has been low especially in the morning, and he is not
on home oxygen. Also has chest discomfort with coughing which is relatively unchanged. He had outpatient CT chest at [facility] showing pulmonary emboli with moderate clot burden with no RV strain and was referred to [facility] for further treatment but left
after he grew frustrated with their care. Here in the ER, he was afebrile to 97.9 �F, pulse rate 113, breathing at 30 breaths/min, BP 119/69 and saturating 80% on room air, which improved to the mid 90s on mid flow and then he eventually required
high flow nasal cannula. Initial labs showed Hb 11.4, platelet count 520, serum sodium 129, serum chloride 92, troponin negative at <0.012, proBNP low at 218 and COVID antigen negative. He reportedly had fevers at home and blood cultures were
collected in the ER. He was given cefepime/vancomycin in the ER, also a 250 cc bolus of NS 0.9% and started on heparin gtt. Given his high oxygen requirements he was admitted to the IMU and pulmonary service consulted for additional
management/recommendations.
Impression:
#Acute bilateral submassive PE without RV strain provoked from known stage IV lung cancer
#Acute respiratory failure with hypoxia due to above in the setting of COPD with bullous emphysema and physical deconditioning
#Gcd-qtfg-fmdhafudivz hemoptysis (started last month after starting Eliquis, which is likely related to his stage IV lung cancer)
#RLE acute DVT involving mid-femoral vein (seen on LE duplex from 05/17/2024)
#Chronic anemia
#Chronic thrombocytosis likely reactive due to known malignancy
#Hypochloremic, hyponatremia likely due to reduced PO intake in setting of paraneoplastic syndrome (SIADH)
#Moderate COPD via spirometry from 04/09/2024 showing post-bronchodilator FEV1: 1.88 L / 52% predicted on chronic prednisone 5 mg daily + Spiriva/Advair
#Bullous emphysema seen on recent CT chest from 04/08/2024 predominantly in the upper lung sánchez
#Mild restrictive lung defect from PFT as above with post-bronchodilator FVC: 3.45 L / 73% predicted
#Right perihilar mass with recently diagnosed stage IV lung adenocarcinoma with progressive endobronchial spread, small�moderate pericardial effusion and bilateral adrenal masses seen on CTA chest from 04/08/2024
#Paroxysmal A-fib on Eliquis (started last month) and also on Multaq
Cachexia
Conditions present prior to admission
Stage IV adenocarcinoma of lung with metastases to chest, abdomen and pelvis
Hypertension
Former smoker, 50 pack years, quit 01/22/2024
Former ETOH abuse (last drink 07/20/2016)
GERD
Post-splenectomy
Recurrent right inguinal hernia
Mixed hyperlipidemia
Plan:
Remains on 2L NC, satting >90%, 3L needed with exertion
No home history of O2 use as of yet
Will need home arrangements
Continue with systemic anticoagulation --> now on therapeutic LMWH since 05/19
Troponin was negative on admission and proBNP was relatively low at 218
Echo done on 05/16/2024 showed normal RV size with hypokinetic RV, with no evidence of pulmonary hypertension with PASP at 25-30 mmHg. LVEF preserved at 55 to 60% and no regional WMA seen. Of note he did have a recent echo on 05/10/2024 which did not
show any evidence of RV dysfunction
Lower extremity duplex from 05/17/2024 shows a nonocclusive thrombus in the RLE within the mid-femoral vein
Continue lovenox SQ
He reportedly had fevers at home but has been afebrile since admission
CXR from 05/17/2024 shows bilateral opacities concerning for pneumonia
Blood cultures collected in ER (on 05/15/2024) and shows NGTD
Sputum culture also collected 05/16/2024 and shows NGTD
Started on empiric antibiotics with Augmentin s/p cefepime (05/15 - 05/18/2024) + doxycycline (05/16 - 05/18/2024)
UA negative for signs of UTI; urine antigens for legionella and Strep PNA both negative
On PO course per ID
Continue to monitor his hemoptysis and if worsens then anticoagulation will need to be stopped
- Trend H&H with serial CBC and transfuse to keep Hb >7 g/dL
- Antitussants prn
COPD/emphysema history
He is on Spiriva + Advair at home � continue these while hospitalized
Maintain SpO2 88-95% with supplemental O2 and wean down high flow FiO2 as tolerated
Continue with Xopenex TID
Given that he continues to be short of breath and hypoxic with variable O2 requirements despite being on anticoagulation, I will start him on a short steroid taper given his COPD with extensive bullous emphysema most affected in the upper lobes
Prednisone taper at discharge
Continue to trend serum sodium with goal 135�145; his urine sodium is high at 160 also with high urine osmolarity at 837; this is consistent with SIADH; continue with fluid restriction otherwise his sodium may continue to decrease; stop IVF
Severe protein calorie malnutrition noted
Dietary consulted
Afib history
Continue with Multaq
Family Discussions
On 05/19/2024: His brought in mebendazole + ivermectin to give to the patient to treat his stage IV lung cancer. Given that this is not an FDA approved regimen for lung cancer, Dr. Penn is unable to give recommendations for these
medications. Dr. Penn deferred any treatment for cancer to oncology. is insistent to give this to the patient and Dr. Penn told her that if she does give it to him, that it is at her and the patient's own risks and that any
consequences that occur would be on them. According to the nurse, no medications are able to be given until ordered by the physician, hence the is not able to even give these meds to the patient currently.
Dr. Penn updated his , Ziayd, at bedside and answered all of her questions.
Dr Barajas updated at bedside daily
Discharge planning per team
Outside imaging:
CTA chest 05/15/2024:
1. Acute bilateral pulmonary embolism with a small to moderate clot burden most proximally involving left upper lobe pulmonary artery. No signs of RV strain. RV/LV ratio is <1, normal.
2. New bilateral pulmonary opacities may reflect postradiation changes and/or superimposed pneumonia
3. Interval decrease in size of mediastinal mass and thoracic lymph nodes
4. Stable adrenal metastasis
ECHO 05/16/24- Normal left ventricular size, wall thickness and systolic function. No regional wall motion abnormalities are seen. LV ejection fraction is 55-60% by visual assessment. Diastolic function not assessed. Normal right ventricular size.
Right ventricle appears hypokinetic but is not objectively measured. Normal atria. No abnormal valve abnormalities. No evidence of pulmonary hypertension.
Small, posterior pericardial effusion.
-----
Total time spent today was 51 minutes for this encounter. Time includes reviewing laboratory test/imaging results, reviewing pertinent medical records, obtaining and reviewing medical history, performing an appropriate exam, ordering medications,
tests and procedures. Time also includes documentation of this encounter, coordinating patient care and communicating with other healthcare professionals. Total time does not include separately billed tests performed on this date of service.
Subjective Data
-
Date of Service:
Date of Service: May 23, 2024
Chief Complaint: Pulmonary Follow Up
Subjective:
No acute events ON, remains on same O2
at bedside, ok with d/c planning
Objective Data
Data Reviewed
Vital Signs / I&O / Oxygen:
Vital Signs
Temp Pulse Resp BP Pulse Ox
98 F 65 26 119/66 87
05/23/24 07:20 05/23/24 06:00 05/23/24 06:00 05/23/24 06:00 05/23/24 06:31
Intake and Output
05/22/24 05/23/24 05/24/24
06:59 06:59 06:59
Intake Total 575 / 575
Output Total 1275 / 1275 325 / 325 100 / 100
Balance -700 / -700 -325 / -325 -100 / -100
SaO2 87
Nasal Cannula flow liters per 3
minute
Physical Exam
General: Respiratory Distress (negative), Comfortable, Chills (negative), Sweats (negative), Poor Appetite and Other (cachectic)
HEENT: Normocephalic, Anicteric and Moist Mucous Membranes
Cardiovascular: S1-S2, Regular Rhythm and Peripheral Edema (negative)
Respiratory: Clear, Wheeze (negative), Rhonchi (negative), Non-Labored Respirations, Stridor (negative) and Other (overall decreased, poor air movement)
GI: Soft, Non Distended, Non Tender and Normal Bowel Sounds
Neurology: AO x 3 and Tremors (negative)
Skin: Warm, Dry, Cyanosis (negative) and Jaundice (negative)
Labs/Micro/Reports
Lab Data
05/22/24 05:04
05/22/24 05:04
Microbiology
05/15/24 22:10 Blood/Venous Blood Culture - Final
No Growth - Final Report
05/15/24 22:10 Blood/Venous Blood Culture - Final
No Growth - Final Report
[2024-05-23] MEDS: DELTASONE 40 MG PO (08:48)
[2024-05-23] MEDS: VISBIOME 2 CAP PO (08:49)
[2024-05-23] MEDS: ProAmatine 10 MG PO ×2 (08:49→12:53)
[2024-05-23] MEDS: MULTAQ 400 MG PO (08:49)
[2024-05-23] MEDS: LOVENOX 55 MG SC (08:50)
[2024-05-23] MEDS: PEPCID 20 MG PO (08:50)
[2024-05-23] MEDS: THERAGRAN 1 TABLET PO (08:50)
--- NOTE | 2024-05-23 09:51 | W.PN.UPDATE ---
Addendum entered and electronically signed by Darline Rivera MD 05/23/24 10:36:
transport chair needed to complete daily activities throughout home and patient is unable to self propel. pt has a caregiver to propel him
Original Note:
Update Note
Progress Note Update
Patient is in need of oxygen at 4 liters/minute via nasal cannula continuously due to pulse oximetry of 86% on room air at rest. Oxygen will help to improve hypoxemia. Patient is mobile within the home. DuoNeb therapy has been tried and is
ineffective in treating hypoxemia related symptoms. Oxygen is needed to improve symptoms.
--- NOTE | 2024-05-23 10:47 | CM ---
CM reviewed pt with Dr. Rivera- plan for dc today
Oxygen needs have increased
Bedside visit with pt and spouse
Plan for transpor chair and no wheelchair on dc
Updated physician noted and updated script completed and faxed to [facility]
Transport chair to be delivered bedside with second portable tank per Linda
IMM verbally reviewed- copy provided
Update to [facility] via [facility]
Spouse will transport home
Discharge Disposition- home with [facility] and DMEs through [facility]
Ricky fax- [phone]
--- NOTE | 2024-05-23 14:14 | W.DCSUMMARY ---
Discharge Summary
Discharge Data
Date of Admission: 05/16/24
Date of Discharge: 05/23/24
-
Pending Results: No
Discharge Plan
-
Patient Disposition: Home with Home Care
Discharge Diagnosis/Procedures: Pulmonary embolism
Right Lower Extremity Deep Venous Thrombosis
Pneumonia/pneumonitis
Acute Respiratory failure currently requiring 4L oxygen supplementation
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
Atrial fibrillation-paroxysmal
Hyponatremia
Chronic hypotension
Thrombocytosis
COPD
Severe Protein calorie malnutrition
Ex-smoker
GERD
History of radiation-induced esophagitis
History of splenectomy
Condition: Fair
Diet: Other diet
Additional Diets: restrict fluids to 40 oz, high protein diet
Activity: As tolerated
Driving Restrictions: No driving
Bathing Restrictions: None
Blood Work: Please repeat CBC and BMP with primary care provider in 1 week of discharge.
Repeat Thyroid Function Test with primary care provider in 1 month of discharge.
Other Services: VN, PT and OT
Activity Restrictions/Additional Instructions:
Please follow up with primary care provider and oncologist in 1 week of discharge, and keep your appointments with all specialists involved in your care.
Lovenox prescribed for pulmonary embolism and right lower extremity DVT
midodrine prescribed for hypotension, hold if your systolic blood pressure is >140. Keep a log of your blood pressure 3 times a day, before each midodrine dose, and review your log, in follow up, with your primary care provider and/or other
healthcare provider involved in your care for further adjustments to your midodrine dosage as necessary.
A multivitamin has been prescribed for nutrition support.
Tylenol PM has been discontinued in favor of low dose 0xycodone to help with sleep and dyspnea at night.
A prednisone taper has also been prescribed to help with shortness of breath and hypoxia:
Continue with 40 mg daily x2 more days (05/24/24-01/24/25), then reduce to 30 mg daily for 5 days, then reduce to 20 mg daily for 5 days, then reduce to 10 mg daily for 5 days, then return to your prior home dose prednisone 5 mg daily from then on.
Please take medications as prescribed/recommended and follow up with primary care provider and/or other healthcare provider involved in your care for refills and/or further adjustment to your medication regimen as necessary.
Referrals:
Michelet Nguyen MD [Family Provider] - in one week
Prescriptions:
New
enoxaparin 60 mg/0.6 mL Syringe
55 mg SC Q12 Qty: 6 0RF
midodrine 10 mg tablet
10 mg PO TID Qty: 90 0RF
Rx Instructions:
Hold if your systolic blood pressure > 140
oxycodone 5 mg Tablet
2.5 mg PO HS Qty: 7 0RF
multivitamin with folic acid [Tab-A-Alf] 400 mcg Tablet
1 tab PO DAILY Qty: 30 0RF
prednisone 10 mg Tablet
10 mg PO DIRECTED Qty: 38 0RF
Rx Instructions:
40 mg Daily x2 days, 30 mg daily x5 days,
20 mg daily x5 days, 10 mg daily x5 days
Continued
famotidine [Pepcid] 20 mg Tablet
20 mg PO DAILY
docusate sodium [Colace] 100 mg Capsule
100 mg PO DAILYPRN PRN (Reason: constipation)
fluticasone propion-salmeterol 230-21 mcg/actuation Hfa Aerosol Inhaler
2 puff inhalation R BID Qty: 12 0RF
albuterol sulfate 90 mcg/actuation Hfa Aerosol Inhaler
2 puff inhalation R Q4HPRN PRN (Reason: SOB/cough) Qty: 8.5 0RF
Spiriva Respimat 2.5 mcg/actuation Mist
2 puff inhalation R DAILY Qty: 4 0RF
Multaq 400 mg Tablet
400 mg PO BID
Changed
acetaminophen [Tylenol Extra Strength] 500 mg Tablet
1,000 mg PO Q6HPRN PRN (Reason: mild pain) Qty: 0 0RF
codeine-guaifenesin 10-100 mg/5 mL liquid
5 ml PO Q4H PRN (Reason: Cough) Qty: 0 0RF
Held
prednisone 5 mg Tablet
5 mg PO DAILY
Hold Instructions: Hold while on Prednisone Taper. Resume when Prednisone taper completes.
Discontinued
diphenhydramine-acetaminophen [Acetaminophen PM] 25-500 mg Tablet
1 tab PO HSPRN PRN (Reason: sleep)
Discharge Orders:
Discharge Patient (As Directed); Ordered 05/23/24
Ordered By: Darline Rivera
Discharge Date and Time
Print Language: OMANI
== END 2024-05-23 15:53 | disposition home health service (06) | DRG 175 ==
LOC: IMU 00:16
PROVIDERS: Hospitalist; Nurse Practitioner Family; ADMITTING PHYSICIAN Hospitalist; ATTENDING PHYSICIAN Internal Medicine; CONSULT PHYSICIAN Internal Medicine Nephrology; EMERGENCY PHYSICIAN Student in an Organized Health Care Education/Training Program; FAMILY PHYSICIAN Family Medicine; OTHER PHYSICIAN Internal Medicine Critical Care Medicine; OTHER PHYSICIAN Internal Medicine Hematology & Oncology; OTHER PHYSICIAN Internal Medicine Infectious Disease
PROC: 5A0935A Assistance with Respiratory Ventilation, Less than 24 Consecutive Hours, High Flow/Velocity Cannula (ICD-10-PCS; 2024-05-16)
DX: I26.99 Other pulmonary embolism without acute cor pulmonale (principal); E43 Unspecified severe protein-calorie malnutrition; J18.9 Pneumonia, unspecified organism; J96.01 Acute respiratory failure with hypoxia; Z66 Do not resuscitate; C79.71 Secondary malignant neoplasm of right adrenal gland; C79.72 Secondary malignant neoplasm of left adrenal gland; C79.89 Secondary malignant neoplasm of other specified sites; E22.2 Syndrome of inappropriate secretion of antidiuretic hormone; C34.01 Malignant neoplasm of right main bronchus; J44.0 Chronic obstructive pulmonary disease with (acute) lower respiratory infection; Z68.1 Body mass index [BMI] 19.9 or less, adult; I82.411 Acute embolism and thrombosis of right femoral vein; J70.0 Acute pulmonary manifestations due to radiation; K21.00 Gastro-esophageal reflux disease with esophagitis, without bleeding; I10 Essential (primary) hypertension; I48.0 Paroxysmal atrial fibrillation; D63.0 Anemia in neoplastic disease; D75.838 Other thrombocytosis; I95.89 Other hypotension; J43.9 Emphysema, unspecified; E88.A Wasting disease (syndrome) due to underlying condition; E87.8 Other disorders of electrolyte and fluid balance, not elsewhere classified; Y84.2 Radiological procedure and radiotherapy as the cause of abnormal reaction of the patient, or of later complication, without mention of misadventure at the time of the procedure; Z90.81 Acquired absence of spleen; Z79.899 Other long term (current) drug therapy; Z79.52 Long term (current) use of systemic steroids; Z11.52 Encounter for screening for COVID-19; Z92.3 Personal history of irradiation; Z87.891 Personal history of nicotine dependence
CPT/HCPCS: 93308; 71045; 80048; 80053; 81003; 82533; 82728; 83540; 83550; 83605; 83735; 83880; 83930; 83935; 84100; 84300; 84403; 84439; 84443; 84484; 85014; 85018; 85025; 85027; 85610; 85730; 86803; 86850; 86900; 86901; 87040; 87070; 87205; 87340; 87389; 87449; 87502; 87811; 87899; 93005; 93321; 93325; 93970; 94640; 96374; 97116; 97163; 97167; 97530; 97535; 99285

== ENCOUNTER 2024-07-14 23:07 | Inpatient (IN) | payer MEDICARE, OTHER, SELFPAY ==
[2024-07-14] VITALS (14 sets, daily range): BP systolic 86–148; BP diastolic 45–90; BMI 16.9
--- NOTE | 2024-07-14 20:32 | ED.GENMED ---
History of Present Illness
General
Chief Complaint: Breathing Problem
Source: patient
Time Seen by Provider: 07/14/24 20:18
History of Present Illness
History of Present Illness:
64-year-old male presents emergency room due to shortness of breath and hypoxia. His action saturation was in the 60s at home.
Past History
Past History
ED Past Medical History: Cancer and HTN
ED Past Surgical History: Other
Social History
Tobacco: Former smoker (Quit 4 months ago)
Alcohol: None
Drug: None
Personal:
Living: with family
Phy Exam
Physical Exam
Physical Exam:
Physical Exam
General: Ill-appearing, severe respiratory distress
Neck: supple. no meningeal signs. normal posterior pharynx
Heart: s1/s2 regular rate and rhythm, no murmur. equal radial
pulses.
HEENT: Pupils equal round reactive to light, EOMI
Lungs: Severe respiratory distress. Rhonchi bilaterally
Abdomen: normal bowel sounds. not tender. no CVAT
Neuro: alert and oriented. no focal neurological deficits cranial nerves II through XII intact
Skin: no rash
Psychiatric: well kept. interactive and cooperative
Extremities: no edema. no calf tenderness. negative homans. good distal pulses
Scores
Heart Failure Risk
Heart Failure Risk Score: Not Applicable
Course
Orders/Labs/Results
Orders:
Orders
07/14/24 20:24
EKG [Electrocardiogram (*1)] Urgent
Reason for Study: Shortness of Breath
EKG- Treatment ONCE
07/14/24 20:27
IV Insert/Care/Rem.- Treatment PRN
07/14/24 20:28
CR Chest Portable - 1 View Urgent
Comment:
Reason For Exam: shortness of breath
Reason Study Needs to be Portable: Patient Unstable
07/14/24 20:41
Complete Blood Count/With Diff Urgent
Comprehensive Metabolic Panel Urgent
PTT Urgent
Prothrombin Time Urgent
Blood Culture Q30M
MEGAN Source: Blood/Venous
Specimen Description:
Blood Culture Q30M
MEGAN Source: Blood/Venous
Specimen Description:
07/14/24 20:55
COVID-19 Antigen Urgent
Source: Nasal Swab
Influenza A+B Rapid Molecular Urgent
MEGAN Source: Nasal Swab
Specimen Description:
07/14/24 21:15
NT-proBNP Urgent
Troponin I Urgent
Venous Blood Gas Urgent
%Oxygen/Room Air: 65
07/14/24 22:03
Cefepime HCl [Maxipime] 2,000 mg IV NOW STA
07/14/24 22:37
Vancomycin [Vancocin] 1,500 mg 0.9% Sodium Chloride 500 ml [Nss] 500 ml IV NOW
07/14/24 22:49
Admit/Transfer Patient As Directed
Co-Sign Provider:
Level of Care: Inpatient admission
Assign to:: ICU
Physician / Group: [email or web address]
Diagnosis: PNA and see below
Reason for Hospitalization: B/L PNA
Acute on chronic hypoxic hypercapnic RF supporting on MFO2 and NRB
Associated partially compensated chronic resp acidosis with secondary metabolic
alklosis
Associated NAG acidois
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
and pelvis
Expected length of stay greater than two midnights?: Yes
ELOS- Estimated Length of Stay in days: 7
I certify the patient meets the requirements for IP care: Yes
07/14/24 22:53
Code Status As Directed
Resuscitation Status: Full Code
07/14/24 22:55
Code Status As Directed
Resuscitation Status: Do not resuscitate
Reached after discussion with pt or family/Healthcare POA: Yes
DNR Bracelet Application ONCE
07/14/24 23:00
Flush (0.9% Sodium Chloride) [Flush (Nss)] See Dose Instructions IV PER PROTOCOL
07/14/24 23:51
Acetaminophen [Tylenol] 1,000 mg PO Q6HPRN PRN
Albuterol [ProAIR HFA INHALER] 2 puff INH R Q4HPRN PRN
Bisacodyl [Dulcolax] 10 mg RECTAL [id number] PRN
Cefepime HCl [Maxipime] 1,000 mg IV Q8H
Docusate W/Senna [Senokot-S] 1 tablet PO BIDPRN PRN
Polyethylene Glycol Powder [Miralax] 17 grams PO DAILYPRN PRN
Prednisone [Deltasone] 2.5 mg PO .QOD
Prednisone [Deltasone] 5 mg PO .QOD
VANCOMYCIN Pharmacy to Dose [VANCOCIN Pharmacy to Dose] 1 each Pharmacy To Prepare [Call Pharmacy To Prepare] 0 ml IV PER PROTOCOL
alprazolam See Dose Instructions PO Q8HPRN PRN
07/14/24 23:51
Activity As Directed
Activity Level: With Assistance
Intake/ Output As Directed
Frequency: Per unit guidelines
Vital Signs As Directed
Frequency: Per unit guidelines
Xopenex Reason for Use As Directed
Reason for ordering Xopenex instead of Albuterol: arrthmia
DX Deep Vein Thrombosis Video Routine
07/15/24 06:00
Basic Metabolic Panel IN AM
Complete Blood Count/No Diff IN AM
07/15/24 08:00
Amiodarone [Pacerone] 200 mg PO DAILY
Fluticasone/Salmeterol 230/21 [Advair Hfa 230/21 Mcg Inhaler] 2 puff INH R BID
Levalbuterol [Xopenex 0.63 mg Inhalant Solution] 0.63 mg INH R TID
Levalbuterol [Xopenex 1.25 mg Inhalant Solution] 2.5 mg INH R DAILY
Midodrine [ProAmatine] 10 mg PO TID
Tiotropium [place] 2.5 Mcg [Spiriva Respimat 2.5 Mcg] 2 puff INH R DAILY
07/15/24 18:00
Enoxaparin Sodium [Lovenox] 40 mg SC QPM
Abnormal Lab Results
07/14/24 07/14/24
20:41 21:15
WBC 12.0 H 10^3/uL
(4.8-10.8)
RBC 3.70 L 10^6/uL
(4.70-6.10)
Hgb 10.5 L g/dL
(13.0-18.0)
Hct 32.5 L %
(39.0-52.0)
MCHC 32.3 L g/dL
(33.0-37.0)
RDW 17.3 H %
(11.5-14.5)
Plt Count 403 H 10^3/uL
(130-400)
Abs Immat Gran (auto) 0.1 H 10^3/uL
(0-0.05)
Absolute Neuts (auto) 9.9 H 10^3/uL
(1.4-6.5)
Absolute Lymphs (auto) 1.1 L 10^3/uL
(1.2-3.4)
Absolute Monos (auto) 0.9 H 10^3/uL
(0.1-0.6)
Immature Gran % 0.6 H %
(0-0.5)
Neutrophils % 82.8 H %
(42.2-75.2)
Lymphocytes % 8.9 L %
(20.5-51.1)
VBG pH 7.31 L
(7.32-7.43)
Sodium 134 L mmol/L
(135-145)
Chloride 112 H mmol/L
(98-107)
Carbon Dioxide 13 L* mmol/L
(22-30)
Calcium 6.2 L* mg/dl
(8.4-10.2)
AST 60 H U/L
(17-59)
Total Protein 4.2 L g/dl
(6.3-8.2)
Albumin 2.0 L g/dl
(3.5-5.0)
07/14/24 20:41
07/14/24 20:41
Vital Signs
Initial and Last Documented VS:
Initial Vital Signs
BP
95/73
07/14/24 20:20
Last Documented Vital Signs
Pulse Resp BP Pulse Ox
89 28 148/68 97
07/14/24 23:55 07/14/24 23:55 07/14/24 23:55 07/14/24 23:55
MDM/Problems Addressed
Differential Diagnosis Includes:
Pneumonia, CHF
MDM/Problems Addressed:
64-year-old male with pneumonia, respiratory failure, end-stage lung cancer, atrial fibrillation.
Chronic conditions affecting care: HTN, Arrhythmia, COPD and Cancer (Lung cancer)
Acute Exacerbation and/or Progression of Chronic Illness: HTN, Arrhythmia, COPD and Cancer
*Radiology
Radiology exam reviewed: preliminary read by ED provider (Chest ray shows bilateral pneumonia)
*Pulse Oximetry
Patient hypoxic: yes
*EKG
Interpreted by ED Provider?: Yes
EKG Intrepretation Date: 07/14/24
EKG Intrepretation Time: 20:27
Interpretation: abnormal
Comparison EKG: changes noted
Heart Rate: 141
Rate: tachycardiac
Rhythm: a-fib
[place]: normal axis
Interval: normal interval
QRS Pattern: normal QRS
Ischemia: no ischemia
*Plastic Manager Interpretation
Rate: tachycardiac
Interpretation: abnormal
Heart Rate: 125
Rhythm: a-fib
*Critical Care Note
Total Time (30-74mins, 75-104mins- exclusive of procedures): 35
comment:
Critical care statement: A total of 35 minutes of critical care time was provided for this patient. This includes management of unstable vital signs, evaluation of the patient at bedside, reviewing the patient's pertinent medical records, discussion
with consultants, review of old EKGs and review of pertinent medical records. This time with separate from time utilized to perform the aforementioned documented procedures
Data Reviewed
Review of Other/Old Records Reveals: Labs
Source: records (Prior calcium 9.0 on 05/22/2024)
Patient Management
Social determinants of health affecting care: Living situation and Strong social support
Discussion with other providers: Hospitalist
Escalation/DeEscalation of care consider admission/obs:
Admit indicated
ED Attending Note
-
Portions of this chart may have been created with voice recognition software.� Occasional wrong word or��sound alike� substitutions may have occurred due to the inherent limitations of voice recognition software.
Discharge Plan
Departure
Patient Disposition: Admit
Date of Disposition: 07/14/24
Time of Disposition: 22:08
Admit to: ICU
Presentation/result/management discussed w/ accepting MD/DO: Hospitalist
Patient with high blood pressure during this ER visit?: No
Condition: Serious
Discharge Problem:
Pneumonia, Adenocarcinoma of lung, Respiratory failure, Hypocalcemia
Interventions
Interventions:
*Risk Screen - Suicide Last Done: 07/14/24 20:27
*General Assessment Last Done: 07/14/24 20:27
*Neglect/Abuse Screening Last Done: 07/14/24 20:27
*ED- Fall Risk Assessment Last Done: 07/14/24 20:27
*ED COVID-19 Vaccine History Last Done: 07/14/24 20:27
*Nursing Disposition Last Done: 07/14/24 23:57
ED- Cardiac Assessment Last Done: 07/14/24 20:29
ED- Pulmonary Assessment Last Done: 07/14/24 21:58
Discharge Date and Time
Discharge Date/Time: 07/14/24 23:57
[2024-07-14 20:51] LABS: % Basophils 0.3 % (0-2); % Immature Granulocytes 0.6 % (0-0.5); % Lymphocytes 8.9 % (20.5-51.1); % Monocytes 7.4 % (1.7-9.3); % Neutrophils 82.8 % (42.2-75.2); Absolute Immature Granulocytes 0.1 10^3/uL (0-0.05); Absolute Lymphocytes 1.1 10^3/uL (1.2-3.4); Absolute Monocytes 0.9 10^3/uL (0.1-0.6); Absolute Neutrophils 9.9 10^3/uL (1.4-6.5); Hematocrit 32.5 % (39.0-52.0); Hemoglobin 10.5 g/dL (13.0-18.0); Mean Corp Hgb Conc. 32.3 g/dL (33.0-37.0); Mean Corpuscular Hgb 28.4 pg (27.0-31.0); Mean Corpuscular Volume 87.8 fL (80.0-94.0); Mean Platelet Volume 9.8 fL (7.4-10.4); Nucleated Red Blood Cells % 0 % (-); Platelet Count 403 10^3/uL (130-400); Red Cell Dist. Width 17.3 % (11.5-14.5)
[2024-07-14 21:09] LABS: ALT (SGPT) 32 U/L (0-50); AST (SGOT) 60 U/L (17-59); Alkaline Phosphatase 59 U/L (38-126); Blood Urea Nitrogen 19 mg/dl (9-20); Calcium 6.2 mg/dl (8.4-10.2); Carbon Dioxide 13 mmol/L (22-30); Chloride 112 mmol/L (98-107); Estimated Creatinine Clearance 83 ml/min; Glucose 95 mg/dl (70-99); Sodium 134 mmol/L (135-145); Total Bilirubin 0.7 mg/dl (0.2-1.3); Total Protein 4.2 g/dl (6.3-8.2); eGFR > 60.00
[2024-07-14 21:19] LABS: COVID-19 Antigen Negative (Negative)
[2024-07-14 21:37] LABS: Venous Blood Gas B.E. -2.3 mmol/L (-4 to +4); Venous Blood Gas HCO3 24.2 mmol/L (22-27); Venous Blood Gas O2 Sat % 47.6 %; Venous Blood Gas pCO2 48 mmHg (35-48); Venous Blood Gas pH 7.31 (7.32-7.43); Venous Blood Gas pO2 33 mmHg (30-50)
[2024-07-14 21:55] LABS: INR 1.11; PT 14.6 Sec (11.4-14.6)
[2024-07-14 21:56] LABS: APTT 33.2 Sec (23.4-35.0)
[2024-07-14 22:05] LABS: NT-proBNP 1530 pg/ml; Troponin I 0.024 ng/ml
[2024-07-14] MEDS: MAXIPIME 2000 MG IV (22:30)
--- NOTE | 2024-07-14 22:43 | HPS.HSE ---
Addendum entered and electronically signed by Derek Stephen MD 07/15/24 08:38:
Final CXR report
Congestive heart failure with asymmetric distribution of interstitial edema, versus multifocal pneumonia with bilateral pleural effusions.
Clinical correlation necessary.
Original Note:
Family Physician
-
Family Physician: Michelet Nguyen
Chief Complaint
-
SoB, hypoxia
History of Present Illness
I could not get any information from the patient due to acuity
Information gathered by chart review and speaking with the ER staff and EMS
HPI
64M BiB EMS from home Home O2 8l NC O2 HX end stage Lung CA , no longer on any cancer Tx but not on hospice seen at ER
EMS report:
- Sob and hypoxic at home
- normally wear home O2 8l NC O2
- per sharon , he is DNR/DNI
- noted he is in A Fib with VR 120-140
At ER;
BCx sent
CXR suggest b/l PNA
Rx with [facility] and [facility]
Medical History
Past Medical History
Past Medical History: Reports Other
Additional Past Medical History:
Stage IV adenocarcinoma of lung with metastases to chest, abdomen and pelvis
Hypertension
COPD
Atrial Fibrillation
Past Surgical History: Reports Other
Additional Past Surgical History:
Splenectomy
Social History
Tobacco: Former Smoker (quit 01/22/2024, 50 pack year history )
Alcohol: Former (last drink 07/20/2016)
Drug: None
Personal:
Living: With Family
Employment: Disabled
Family History
Family History: Not pertinent
Allergies / Home Medications
Allergies reflects when Allergies were last updated in [facility].
Home Medications with original date entered in [facility]
Allergy/Medication List:
Allergies
Allergy/AdvReac Type Severity Reaction Status Date / Time
No Known Allergies Allergy Verified 04/08/24 12:37
Home Medications
acetaminophen 500 mg tablet (Tylenol Extra Strength) 500 mg PO Q6HPRN PRN mild pain 04/08/24
codeine 10 mg-guaifenesin 100 mg/5 mL oral liquid 5 ml PO Q4H 04/08/24
diphenhydramine 25 mg-acetaminophen 500 mg tablet (Acetaminophen PM) 1 tab PO HSPRN PRN sleep 04/08/24
docusate sodium 100 mg capsule (Colace) 100 mg PO DAILYPRN PRN constipation 04/08/24
famotidine 20 mg tablet (Pepcid) 20 mg PO DAILY Gastrointestinal Issue 04/08/24
prednisone 5 mg tablet 5 mg PO DAILY Anti-Inflammatory 04/08/24
albuterol sulfate 90 mcg/actuation aerosol inhaler 2 puff inhalation R Q4HPRN PRN SOB/cough #8.5 grams 04/10/24
fluticasone propionate 230 mcg-salmeterol 21 mcg/actuation HFA inhaler 2 puff inhalation R BID #12 grams 04/10/24
tiotropium bromide 2.5 mcg/actuation mist for inhalation (Spiriva Respimat) 2 puff inhalation R DAILY #4 grams 04/10/24
dronedarone 400 mg tablet (Multaq) 400 mg PO BID 05/15/24
Review of Systems
-
History Source: Patient and Family
A 12 point ROS was completed and negative except as noted: Yes
Constitutional: Reports Fatigue; Denies Chills
EENT: Denies Sore Throat
Respiratory: Reports Cough and Trouble Breathing; Denies Hemoptysis
Cardiac: Denies Chest Pain, Palpitations or Syncope
Abdomen/GI: Denies Abdominal Pain, Nausea, Vomiting, Diarrhea, Bloody Stools or Black Stools
: Denies Dysuria, Frequency or Bleeding
Musculoskeletal: Denies Joint Pain or Edema
Neurological: Reports Weakness; Denies Dizzy or Headache
Psych: Denies Depression or Anxiety
Physical Exam
Vital Signs
Vital Signs
Pulse Resp BP Pulse Ox
142 40 102/90 91
07/14/24 22:30 07/14/24 22:30 07/14/24 22:30 07/14/24 22:30
Physical Exam
General: Other (Frail, chronically ill-appearing 63y M in mild respiratory distress.)
HEENT: Other (Dry MM. Neck supple.)
Respiratory: Other (Decreased BS at the bases - R > L. No wheezes / rhonchi.)
Cardiac: S1/S2 and Irregular Rhythm; No Murmur
GI: Soft, Non Tender, Non Distended and Normal Bowel Sounds
Musculoskeletal: No Clubbing, No Cyanosis and No Edema
Neuro: AO x 3
Laboratory Results
-
07/14/24 20:41
07/14/24 20:41
Laboratory Results
PT 14.6 Sec (11.4-14.6) 07/14/24 20:41
INR 1.11 07/14/24 20:41
APTT 33.2 Sec (23.4-35.0) 07/14/24 20:41
Total Bilirubin 0.7 mg/dl (0.2-1.3) 07/14/24 20:41
AST 60 U/L (17-59) H 07/14/24 20:41
ALT 32 U/L (0-50) 07/14/24 20:41
Alkaline Phosphatase 59 U/L (38-126) 07/14/24 20:41
Troponin I 0.024 ng/ml 07/14/24 21:15
Data Reviewed
-
Diagnostic Radiology: Image Personally Visualized and interpreted
Medical Tests (Nuc Med, Echo, EKG etc): Report Reviewed by me
Lab Data: Labs Reviewed by me
Old Records: Reviewed
Impression/Plan
-
Vital Signs
Pulse Resp BP Pulse Ox
142 40 102/90 91
03/15/25 22:30 07/14/24 22:30 07/14/24 22:30 07/14/24 22:30
Data
05/22/24 07/14/24 07/14/24
05:04 20:41 21:15
WBC 5.9 12.0 H
Hgb 9.1 L 10.5 L
Plt Count 525 H 403 H
VBG pH 7.31 L
VBG pCO2 48
VBG pO2 33
VBG HCO3 24.2
Sodium 132 L 134 L
Potassium 4.5 4.0
Carbon Dioxide 25 13 L*
Creatinine 0.5 L 0.7
eGFR > 60.00 > 60.00
Calcium 6.2 L*
Troponin I 0.024
Kas-B-Bplnemholwf Pept 1530
Total Protein 4.2 L
Albumin 2.0 L
CXR read by ER : b/l PNA
05/16/2024 TTE:
- Normal RV size with hypokinetic RV
- no evidence of pulmonary hypertension with PASP at 25-30 mmHg.
- LVEF preserved at 55 to 60% and no regional WMA seen.
05/10/2024 TTE:
not show any evidence of RV dysfunction
Last hospitalist admission: 05/16/24 - 05/23/24
Discharge Diagnosis/Procedures:
Pulmonary embolism
Right Lower Extremity Deep Venous Thrombosis
Pneumonia/pneumonitis
Acute Respiratory failure currently requiring 4L oxygen supplementation
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
Atrial fibrillation-paroxysmal
Hyponatremia
Chronic hypotension
Thrombocytosis
COPD
Severe Protein calorie malnutrition
Ex-smoker
GERD
History of radiation-induced esophagitis
History of splenectomy
ASSESSMENT & PLAN
B/L PNA
Acute on chronic hypoxic hypercapnic RF supporting on MFO2 and NRB
Associated partially compensated chronic resp acidosis with secondary metabolic alklosis
Associated NAG acidosis
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
- DNR & DNI per family
- Overall prognosis is grave
- f/u final CXR report
- on empiric IV Vancomycin and Zosyn
- ICU consult
COPD/emphysema HX
He is on Spiriva + Advair at home � continue these while hospitalized
- Goal SpO2 88-95% with supplemental O2 and wean down high flow FiO2 as tolerated
- c/w Xopenex TID
Recent HX acute bilateral submassive PE without RV strain provoked from known stage IV lung cancer
RLE acute DVT involving mid-femoral vein (seen on LE duplex from 05/17/2024)
- DC'd Eliquis due to question of arterial bleed
- pending OP f/u CT Chest
Fast AF
HX Prx AF
- No longer on Eliquis ands Cardizem
Chronic thrombocytosis likely reactive due to known malignancy
Hypochloremic, hyponatremia likely due to reduced PO intake in setting of paraneoplastic syndrome (SIADH)
Severe protein calorie malnutrition
BMI 16 - under weight
Grave prognosis; case hospitalist dw Spouse in length:
Patient is hospice > palliative care candidate HOWEVER , NoK spouse is not in synch or cognizant about overall prognosis plus hospice care vs. current palliative care
DVT Px: LMWH
DNR
ICU
DVT Px: on Eliquis
DNR
ICU
[2024-07-14] MEDS: VANCOCIN 530 MG IV (22:48)
[2024-07-15] VITALS (21 sets, daily range): BP systolic 82–141; BP diastolic 53–99
[2024-07-15] MEDS: COLACE 100 MG PO ×2 (02:07→08:09)
[2024-07-15] MEDS: NON-FORMULARY ITEM 0.3 MG PO ×2 (02:08→11:24)
[2024-07-15] MEDS: SENOKOT 8.6 MG PO ×2 (02:16→08:08)
[2024-07-15 04:05] LABS: Hematocrit 30.4 % (39.0-52.0); Mean Corp Hgb Conc. 32.9 g/dL (33.0-37.0); Mean Corpuscular Hgb 28.7 pg (27.0-31.0); Mean Corpuscular Volume 87.4 fL (80.0-94.0); Mean Platelet Volume 9.9 fL (7.4-10.4); Platelet Count 398 10^3/uL (130-400); Red Blood Cell Count 3.48 10^6/uL (4.70-6.10); White Blood Cell Count 10.7 10^3/uL (4.8-10.8)
--- NOTE | 2024-07-15 04:30 | PTCARENOTE ---
pt admit to ICU from ER around midnight, pt aaox3, denies pain, afebrile, RA IV WNL. pt remains on 100% NRB, removes frequently to cough/spit. c/o pt being constipated for past few days- stool softener orders obtained/given. BDoughertyNP to
bedside multiple times to discuss medications/orders with pt and . bed alarm had been set on pts bed- pt sitting on side of bed and alarm going off multiple times. pts angrily asked if pt was told a bed alarm would be put on and that he
would be held to such restraint. both pt and educated on bed alarm use for safety, after several more times of activating the bed alarm- pt and refusing it to be kept on. alarm off- call mosley with pt. pt educated on calling for assistance,
pt agreeable. care ongoing.
[2024-07-15 04:32] LABS: Blood Urea Nitrogen 35 mg/dl (9-20); Calcium 9.9 mg/dl (8.4-10.2); Carbon Dioxide 20 mmol/L (22-30); Chloride 94 mmol/L (98-107); Estimated Creatinine Clearance 53 ml/min; Glucose 131 mg/dl (70-99); Potassium 5.5 mmol/L (3.5-5.1); Sodium 131 mmol/L (135-145); eGFR > 60.00
[2024-07-15] MEDS: STERILE WATER FOR INJECTION 10 ML IV ×3 (05:00→16:17)
[2024-07-15] MEDS: MAXIPIME 1000 MG IV ×3 (05:00→16:17)
[2024-07-15] MEDS: MORPHINE ORAL SOLUTION 5 MG PO ×3 (05:31→16:23)
[2024-07-15] MEDS: TYLENOL 1000 MG PO (08:06)
[2024-07-15] MEDS: DELTASONE 5 MG PO (08:07)
[2024-07-15] MEDS: ProAmatine 10 MG PO (08:08)
[2024-07-15] MEDS: PACERONE 200 MG PO (08:08)
[2024-07-15] MEDS: MS CONTIN (EXTENDED RELEASE) 15 MG PO (08:08)
--- NOTE | 2024-07-15 08:16 | CON.INTV ---
Consultation
Consultation Request
Date/Time Consultation Requested: 07/14/2024 - 2350
Date/Time Consultation Performed: 07/15/2024 - 809
Requesting Provider: Dr. Stephen
Performing Provider: Dr. Penn
Reason for Consultation: Hypoxia
Medical History
-
Chief Complaint: SOB and low oxygen levels
History of Present Illness:
64-year-old male with a past medical history of tobacco use disorder, stage IV lung cancer, hypertension, COPD, history of submassive PE and A-fib who presents with shortness of breath and low oxygen levels. Patient is not on treatment for his lung
cancer nor is he on hospice. He normally wears 8 L/min nasal cannula at home. He was found to be in rapid A-fib in the ER with rates as high as 140s. Of note patient recently hospitalized from 05/16 - 05/23/2024 due to an acute bilateral submassive
PE provoked from known stage IV lung cancer with acute respiratory failure in the setting of COPD with [id number] hemoptysis. His hemoptysis actually started the month prior after starting Eliquis. He was given anticoagulation and then
started on therapeutic Lovenox and then discharged home on therapeutic Lovenox with midodrine and steroid taper. Currently, in the ER his pulse rate was 143, breathing at 36 breaths/min, BP 95/73 and saturating 88% on mid flow nasal cannula which
was then switched to high flow nasal cannula with saturation improvement to 100%. He has been afebrile since admission. Initial labs showed WBC 12, Hb 10.5, platelet count 403, pH 7.31 with pCO2 48, sodium 134, serum bicarbonate level 13, calcium
level 6.2, AST 60, proBNP 1530, albumin level 2 and COVID-19 antigen negative. Blood cultures were collected and flu swab was negative. CXR showed signs of asymmetrically distributed interstitial edema with bilateral pleural effusion versus
pneumonia. In the ER he was given cefepime/vancomycin and admitted to the ICU for further care with [employer] Car[employer] services consulted for additional management/recommendations.
Patient was seen and evaluated today at bedside. Currently on high flow nasal cannula at 50 L/min, 70% FiO2 and saturating 89% with BP 112/77 and heart rate 80. Patient's at bedside. All questions were answered. He has not coughed up any
blood since 07/06/2024 and has been off anticoagulation since then as well. Currently denies chest pain, HUTCHISON, nausea, fevers or chills. He would like the high flow nasal cannula to be taken off if possible as it is very loud and the air coming out is
hot.
PMHx: Tobacco use disorder, stage IV adenocarcinoma of the lung, hypertension, moderate COPD, A-fib
PSHx: Splenectomy
Past Medical History
Past Medical History: Other (Above as per HPI)
Past Surgical History: Other (Above as per HPI)
Social History
Tobacco: Former Smoker (05-vtrd-[id number] history, quit 01/22/2024)
Alcohol: Former (Last drink 07/20/2016)
Drug: None
Personal:
Living: With Family
Employment: Disabled
Family History
Family History: CAD (Father), Cancer (Mother: Bladder cancer) and Other (Mother: Emphysema)
Allergies / Home Medications
Allergies
Allergy/AdvReac Type Severity Reaction Status Date / Time
No Known Allergies Allergy Verified 04/08/24 12:37
Home Medications
�Medication �Instructions �Recorded �Confirmed �Last Taken �Type
docusate sodium 100 mg capsule 100 mg PO DAILY 04/08/24 07/14/24 04/04/24 History
(Colace)
famotidine 20 mg tablet (Pepcid) 20 mg PO BID Gastrointestinal Issue 04/08/24 07/14/24 04/07/24 History
prednisone 5 mg tablet 5 mg PO .QOD Anti-Inflammatory 04/08/24 07/14/24 04/07/24 History
albuterol sulfate 90 mcg/actuation 2 puff inhalation R Q4HPRN PRN 04/10/24 07/14/24 Unknown Rx
aerosol inhaler SOB/cough #8.5 grams
tiotropium bromide 2.5 2 puff inhalation R DAILY #4 grams 04/10/24 07/14/24 Unknown Rx
mcg/actuation mist for inhalation
(Spiriva Respimat)
acetaminophen 500 mg tablet 1,000 mg (2 x 500 mg) PO Q6HPRN 05/23/24 07/14/24 Unknown Rx
(Tylenol Extra Strength) PRN mild pain #0 tabs
midodrine 10 mg tablet 10 mg PO TID #90 tabs 05/23/24 07/14/24 Unknown Rx
multivitamin with folic acid 400 1 tab PO DAILY #30 tabs 05/23/24 07/14/24 Unknown Rx
mcg tablet (Tab-A-Alf)
Lactobac no.2-Bifidobac no.1-S. 2 cap PO DAILY 07/14/24 07/14/24 Unknown History
thermo 112.5 billion cell capsule
(Visbiome)
alprazolam 1 mg/mL oral concentrate 0.3 mg PO .Q8HRS PRN Anxiety 07/14/24 07/14/24 Unknown History
amiodarone 200 mg tablet 200 mg PO DAILY 07/14/24 07/14/24 Unknown History
biotin 10,000 mcg capsule 10,000 mcg PO DAILY 07/14/24 07/14/24 Unknown History
cholecalciferol (vitamin D3) 10 15 mcg PO DAILY 07/14/24 07/14/24 Unknown History
mcg (400 unit) capsule (Vitamin D3)
fluticasone propionate 230 2 puff inhalation BID 07/14/24 07/14/24 Unknown History
mcg-salmeterol 21 mcg/actuation
HFA inhaler
ivermectin 3 mg tablet 30 mg PO DAILY 07/14/24 07/14/24 Unknown History
levalbuterol HCl 1.25 mg/0.5 mL 2.5 mg inhalation DAILY 07/14/24 07/14/24 Unknown History
solution for nebulization
mebendazole 100 mg chewable tablet 100 mg PO BID 07/14/24 07/14/24 Unknown History
morphine 20 mg/5 mL (4 mg/mL) oral 15 mg PO Q3H 07/14/24 07/14/24 Unknown History
solution
prednisone 2.5 mg tablet 2.5 mg PO .QOD 07/14/24 07/14/24 Unknown History
sennosides 8.6 mg tablet (Senokot) 8.6 mg PO BID 07/14/24 07/14/24 Unknown History
sodium chloride 0.9 % for 2.5 ml inhalation DAILY 07/14/24 07/14/24 Unknown History
nebulization
Review of Systems
-
History Source: Patient
All other systems: Negative unless noted
Vitals / Labs / Diagnostic Testing
Vital Signs
Temp Pulse Resp BP Pulse Ox
97.4 F 83 33 101/70 95
07/15/24 08:00 07/15/24 09:01 07/15/24 09:01 07/15/24 09:01 07/15/24 09:01
Lab Data
07/15/24 03:54
Laboratory Results
07/14/24
20:41
PT 14.6
INR 1.11
APTT 33.2
Microbiology
07/14/24 20:55 Nasal Swab Influenza Types A & B (JOSIE) - Final
Negative for Influenza A & B, NAAT
Negative results must be combined with clinical observations
and patient history.
Nucleic Acid Amplification test (NAAT)performed on the
[employer] platform.
Diagnostic Testing:
Physical Exam
-
HEENT: Normocephalic and Anicteric
Cardiovascular: S1/S2 and Peripheral Edema (+2 LE edema b/l)
Respiratory: Wheeze (negative), Rales (Bilateral), Rhonchi (Bilateral) and Non-Labored Respirations
GI: Soft, Non Distended, Non Tender and Normal Bowel Sounds
Neurology: AO x 3 and Tremors (negative)
Skin: Warm and Dry
General: Respiratory Distress (negative), Fever (negative) and Chills (negative)
Assessment
-
Assessment: 64-year-old male with a past medical history of tobacco use disorder, stage IV lung cancer, hypertension, COPD, history of submassive PE and A-fib who presents with shortness of breath and low oxygen levels. Patient is not on treatment
for his lung cancer nor is he on hospice. He normally wears 8 L/min nasal cannula at home. He was found to be in rapid A-fib in the ER with rates as high as 140s. Of note patient recently hospitalized from 05/16 - 05/23/2024 due to an acute
bilateral submassive PE provoked from known stage IV lung cancer with acute respiratory failure in the setting of COPD with [id number]-[id number] hemoptysis. His hemoptysis actually started the month prior after starting Eliquis. He was given
anticoagulation and then started on therapeutic Lovenox and then discharged home on therapeutic Lovenox with midodrine and steroid taper. Currently, in the ER his pulse rate was 143, breathing at 36 breaths/min, BP 95/73 and saturating 88% on mid
flow nasal cannula which was then switched to high flow nasal cannula with saturation improvement to 100%. He has been afebrile since admission. Initial labs showed WBC 12, Hb 10.5, platelet count 403, pH 7.31 with pCO2 48, sodium 134, serum
bicarbonate level 13, calcium level 6.2, AST 60, proBNP 1530, albumin level 2 and COVID-19 antigen negative. Blood cultures were collected and flu swab was negative. CXR showed signs of asymmetrically distributed interstitial edema with bilateral
pleural effusion versus pneumonia. In the ER he was given cefepime/vancomycin and admitted to the ICU for further care with Mail Carrier And Clerk services consulted for additional management/recommendations.
Chronic conditions [employer]: Tobacco use disorder, stage IV adenocarcinoma of the lung, hypertension, moderate COPD, A-fib
Impression:
#Acute respiratory failure with hypoxia + hypercapnia requiring high flow nasal cannula likely due to pneumonia in the setting of metastatic lung cancer
#A-fib with RVR now in NSR with HR 80bpm
#Mild hyperkalemia
#Mild transaminitis with elevated AST on admission (60)
#Metabolic acidosis with increased anion gap
#Hypoalbuminemia
#Chronic hypochloremia, hyponatremia (baseline sodium 128�134)
#Chronic anemia
#Chronic thrombocytosis likely reactive due to known malignancy
#Moderate COPD via spirometry from 04/09/2024 showing post-bronchodilator FEV1: 1.88 L / 52% predicted on chronic alternating prednisone 2.5 / 5 mg QOD + Spiriva/Advair
#Bullous emphysema seen on recent CT chest from 04/08/2024 predominantly in the upper lung sánchez
#Mild restrictive lung defect from PFT as above with post-bronchodilator FVC: 3.45 L / 73% predicted
#Right perihilar mass with recently diagnosed stage IV lung adenocarcinoma with progressive endobronchial spread, small�moderate pericardial effusion and bilateral adrenal masses seen on CTA chest from 04/08/2024
#Paroxysmal A-fib on Eliquis (started last month) and also on Multaq
Plan:
- Continue with high flow nasal cannula and titrate FiO2 + flow rate to maintain SpO2 88-95%
- If saturations remain controlled with FiO2 weaned down to 50% then can try to go back to midflow nasal cannula
- Continue aspiration precautions with HOB >30-45�
- Patient takes Advair + Spiriva at home, so continue with these inhalers while hospitalized; also on Xopenex TID; continue with prn albuterol
- Raise steroids to Solumedrol 40mg IV q8hr given suspected COPD exacerbation
- Trend blood gas to assure pH and pCO2 remain stable
- Given that he has a recent acute PE but has stopped anticoagulation on 07/06/2024 when he had hemoptysis again, recheck CTA chest to reassess status of PE
- Patient also has said that he has possible metastasis in his pelvis; recheck CT abdomen/pelvis with contrast while down for CTA chest
- Only go for CT if stable to transfer off the floor
- Given that he is supposed to be on therapeutic Lovenox, I will resume this tonight given his recent acute PE in the setting of metastatic cancer which is a thrombogenic condition and off anticoagulation could be risky as his PE could worsen
- Continue with broad-spectrum antibiotics, currently on cefepime/vancomycin
- Follow-up blood cultures
- Collect sputum culture if patient can produce a decent samplelasix
- May need to diurese if BP can tolerate given possible etiology of pulmonary edema for hypoxia
- Trend BNP
- Trend WBC and monitor fever curve
- Now in NSR --> continue to monitor HR
- Continue PO amio
- Recent echo on 05/16/2024 showed normal RV size which was hypokinetic with no significant valvular abnormalities and LVEF 55 - 60%
- Continue to trend serum [K] levels, treating with temporizing agents if still >5.4
- Trend serum HCO3 levels; pH was 7.31 on 07/14/2024 --> trend blood gas to assure pH and pCO2 remain stable
- Pain control
- Maintain MAP>65
- Replete electrolytes with K>4, Mg>2
- Maintain euglycemia with goal BG 140-180
- Trend H/H and transfuse if needed to keep Hb>7g/dL; keep plt>20k, unless there is concern for bleeding then keep plt>50k
- Once he is less tachypneic, encouraged to use incentive spirometer 10x per hour for at least 4 hrs a day
- DVT ppx: starting therapeutic LMWH tonight if no bleeding seen
Code status: DNR/DNI
Continue ICU level care for this critically ill patient
Critical care statement: A total of 42 minutes of critical care time was provided for this patient today. This includes management of unstable vital signs, evaluation of the patient at bedside, reviewing the patient's pertinent medical records
including radiographs, microbiology, laboratory evaluations, and discussion with primary team, consultants, pharmacy, nutrition, physical therapy, case management, charge nurse, critical care nursing, and respiratory therapy.
Data:
CXR 07/15/2024: Congestive heart failure with asymmetric distribution of interstitial edema, versus multifocal pneumonia with bilateral pleural effusions. Clinical correlation necessary.
[2024-07-15] MEDS: ADVAIR HFA 230/21 MCG INHALER 2 PUFF INH (08:31)
[2024-07-15] MEDS: XOPENEX 0.63 MG INHALANT SOLUTION INH ×2 (08:32→14:09)
[2024-07-15] MEDS: SPIRIVA RESPIMAT 2.5 MCG 2 PUFF INH (08:38)
[2024-07-15] MEDS: SOLU-MEDROL PF 40 MG IV (11:24)
[2024-07-15 11:39] LABS: Vancomycin Random 11.8 ug/ml
--- NOTE | 2024-07-15 11:56 | PHA.VAN.IN ---
Assessment
- Assessment
Renal Function: Appears elevated from baseline (BASELINE SCR 0.6)
Plan
- Plan
Initial / Loading Dose: VANCO 1500MG X1, RANDOM 11.8 DRAWN ~12 HR AFTER PREVIOUS DOSE
Maintenance Regimen: VANCO 1000MG X1
Monitoring: RANDOM 07/16 @0600
MRSA Screen: Ordered per protocol
Pharmacokinetics Vancomycin I
- -
Patient Age: 64
Patient Sex: Male
Vancomycin Day #: 2
Indication: Pulmonary/Respiratory
Requesting Provider: DR. GUSTAVO CAGE
Height / Weight:
Height 6 ft
Actual Weight 56.4 kg
Pertinent Past Medical History: LUNG CA, COPD, BMI 17
- Vital Signs / Lab Results
Temp Pulse Resp BP Pulse Ox
97.4 F 80 34 102/77 93
07/15/24 08:00 07/15/24 10:30 07/15/24 10:30 07/15/24 10:00 07/15/24 10:30
Lab Results - Hematology
07/14/24 07/15/24
20:41 03:54
WBC 12.0 H 10.7
Lab Results - Chemistry
07/14/24 07/15/24
20:41 03:54
BUN 19 35 H
Creatinine 0.7 1.1
Estimated Creat Clear 83 53
Albumin 2.0 L
Microbiology Results
07/14/24 20:55 Influenza Types A & B (JOSIE) - Final
Nasal Swab Negative for Influenza A & B, NAAT
Negative results must be combined with clinical observations
and patient history.
Nucleic Acid Amplification test (NAAT)performed on the
[employer] platform.
--- NOTE | 2024-07-15 12:04 | RESPNOTE ---
i attempted to draw ABG on the pt twice, but was unsuccessful.
the pt. stated and expressed a desire to be placed in the ground
i advise both the pt and his to discuss his wishes with the physician
at this time both the pt and his are refusing to have ABG drawn.
nurse made aware of this situations.
[2024-07-15] MEDS: VANCOCIN 200 IV (12:59)
--- NOTE | 2024-07-15 13:19 | PTCARENOTE ---
Received on 100% NRB. Pt orthopneic, sitting on side of the bed. Transitioned to HFNC 50L 80%. Pt became SOB and anxious. FiO2 increased to 100%. PRN Alprazolam given. Will continue to wean as tolerated.
Pt complained of pain at right forearm IV site. New IV placed. Pt reporting pain and leaking from new IV. IV team call. Midline requested.
Pt anxious from needle sticks. Refusing labs at this time. Will await new midline.
ABG attempted but unsuccessful. notified and will change order to VBG.
Very poor appetite. Lungs diminished throughout. +2 lower extremity edema. All other assessments unchanged.
--- NOTE | 2024-07-15 14:23 | PTCARENOTE ---
Now in Afib. HR 130-140s. Worsening SOB. SpO2 89-90% on 100% HFNC with NRB. RR 35-40.
EKG done. RN attempting peripheral IV at this time. Pt orthopneic and unable to lay in bed for PICC line placement at this time.
Will start amiodarone gtt when IV access obtained.
[2024-07-15] MEDS: CORDARONE 518 MG IV (15:02)
--- NOTE | 2024-07-15 15:05 | PTCARENOTE ---
per primary RN natacha, picc order on hold, patient with adequate iv access at this time. will continue to assess for PICC needs
--- NOTE | 2024-07-15 17:00 | PTCARENOTE ---
Pt repositioned in bed. SpO2 decreased to 79% on 100% HFNC and NRB. Improved to 90s but pt continued to have increased work of breathing. MD notified. New order for IV Dilaudid and IV ativan. SpO2 decreased to 60s, pt became bradycardic and
agonal. MD called to bedside and pt went into asystole. Pt DNR. at bedside.
--- NOTE | 2024-07-15 17:40 | W.PN.DEATH ---
Pronouncement of
-
Called to see patient to pronounce.
No spontaneous heart tones or respirations noted.
Patient not responsive to verbal stimuli.
Patient is pronounced .
Time of : 16:57
Date of : 07/15/24
Cause of : Acute hypoxic respiratory failure, stage IV lung cancer
Family Notified: Yes
--- NOTE | 2024-07-15 17:44 | W.DCSUMMARY ---
Discharge Summary
Discharge Data
Date of Admission: 07/14/24
Date of Discharge: 07/15/24
-
Pending Results: No
Hospital Course
diagnosis:
Acute hypoxic respiratory failure
Atrial fibrillation with rapid ventricular response
Probable pneumonia
Stage IV metastatic lung cancer
Hypokalemia
Transaminitis
Hypoalbuminemia
Anion gap metabolic acidosis
Cachexia
Bullous emphysema
Moderate chronic obstructive pulmonary disease
Hospital course:
64-year-old male with a past medical history of tobacco use disorder, stage IV lung cancer, hypertension, COPD, history of submassive PE and A-fib who was admitted for acute hypoxic respiratory failure secondary to pneumonia and stage IV metastatic
lung cancer. Patient was seen in conjunction with the safety investigator. Despite maximal medical intervention with IV antibiotics, bronchodilators, and oxygen, patient went into acute hypoxic respiratory failure. He is a DO NOT RESUSCITATE. He
peacefully on 07/15/2024 at 16:57. Family at bedside, condolences offered.
Discharge Plan
-
Referrals:
Michelet Nguyen MD [Family Provider] -
Prescriptions:
No Action
prednisone 5 mg Tablet
5 mg PO .QOD
famotidine [Pepcid] 20 mg Tablet
20 mg PO BID
docusate sodium [Colace] 100 mg Capsule
100 mg PO DAILY
albuterol sulfate 90 mcg/actuation Hfa Aerosol Inhaler
2 puff inhalation R Q4HPRN PRN (Reason: SOB/cough) Qty: 8.5 0RF
Spiriva Respimat 2.5 mcg/actuation Mist
2 puff inhalation R DAILY Qty: 4 0RF
midodrine 10 mg tablet
10 mg PO TID Qty: 90 0RF
Rx Instructions:
Hold if your systolic blood pressure > 140
multivitamin with folic acid [Tab-A-Alf] 400 mcg Tablet
1 tab PO DAILY Qty: 30 0RF
acetaminophen [Tylenol Extra Strength] 500 mg Tablet
1,000 mg PO Q6HPRN PRN (Reason: mild pain) Qty: 0 0RF
ivermectin 3 mg Tablet
30 mg PO DAILY
sennosides [Senokot] 8.6 mg Tablet
8.6 mg PO BID
amiodarone 200 mg Tablet
200 mg PO DAILY
morphine [Roxanol] 20 mg/5 mL (4 mg/mL) Solution
15 mg PO Q3H
mebendazole 100 mg Tablet,Chewable
100 mg PO BID
prednisone 2.5 mg Tablet
2.5 mg PO .QOD
biotin 10,000 mcg Capsule
10,000 mcg PO DAILY
sodium chloride [Saline] 0.9 % Solution For Nebulization
2.5 ml INHALATION DAILY
alprazolam 1 mg/mL Concentrate
0.3 mg PO .Q8HRS PRN (Reason: Anxiety)
cholecalciferol (vitamin D3) [Vitamin D3] 10 mcg (400 unit) Capsule
15 mcg PO DAILY
levalbuterol HCl 1.25 mg/0.5 mL Solution For Nebulization
2.5 mg INHALATION DAILY
Visbiome 112.5 billion cell Capsule
2 cap PO DAILY
fluticasone propion-salmeterol 230-21 mcg/actuation HFA aerosol inhaler
2 puff inhalation BID
Discharge Date and Time
Print Language: GREENLANDIC
--- NOTE | 2024-07-15 17:48 | PTCARENOTE ---
Pt's own med, xanax, returned to pt's .
== END 2024-07-15 16:57 | disposition expired | DRG 193 ==
LOC: ICU 23:07
PROVIDERS: ADMITTING PHYSICIAN Internal Medicine; ATTENDING PHYSICIAN Family Medicine; CONSULT PHYSICIAN Internal Medicine Critical Care Medicine; EMERGENCY PHYSICIAN Emergency Medicine; FAMILY PHYSICIAN Family Medicine
PROC: 5A0935A Assistance with Respiratory Ventilation, Less than 24 Consecutive Hours, High Flow/Velocity Cannula (ICD-10-PCS; 2024-07-14)
DX: J18.9 Pneumonia, unspecified organism (principal); E43 Unspecified severe protein-calorie malnutrition; J96.21 Acute and chronic respiratory failure with hypoxia; J96.22 Acute and chronic respiratory failure with hypercapnia; C34.90 Malignant neoplasm of unspecified part of unspecified bronchus or lung; C79.71 Secondary malignant neoplasm of right adrenal gland; C79.89 Secondary malignant neoplasm of other specified sites; C79.72 Secondary malignant neoplasm of left adrenal gland; Z66 Do not resuscitate; E22.2 Syndrome of inappropriate secretion of antidiuretic hormone; Z68.1 Body mass index [BMI] 19.9 or less, adult; E87.20 Acidosis, unspecified; J44.0 Chronic obstructive pulmonary disease with (acute) lower respiratory infection; R64 Cachexia; D63.0 Anemia in neoplastic disease; I48.0 Paroxysmal atrial fibrillation; D75.838 Other thrombocytosis; E87.5 Hyperkalemia; E88.09 Other disorders of plasma-protein metabolism, not elsewhere classified; J43.9 Emphysema, unspecified; I10 Essential (primary) hypertension; Z86.711 Personal history of pulmonary embolism; Z79.51 Long term (current) use of inhaled steroids; Z79.899 Other long term (current) drug therapy; Z99.81 Dependence on supplemental oxygen; Z87.891 Personal history of nicotine dependence; Z86.718 Personal history of other venous thrombosis and embolism; Z90.81 Acquired absence of spleen; Z11.52 Encounter for screening for COVID-19
CPT/HCPCS: 71045; 80048; 80053; 80202; 82805; 83880; 84484; 85025; 85027; 85610; 85730; 87040; 87502; 87641; 87811; 93005; 94640; 96365; 96375; 99291